=== PATIENT | female | born 1975 | race Caucasian/White ===

== ENCOUNTER 2019-07-01 16:53 | Emergency (ER) | payer OTHER ==
[2019-07-01] MEDS ORDERED: IBUPROFEN 200 MG TAB PO ONE (17:43)
[2019-07-01] MEDS ORDERED: IBUPROFEN 400 MG TAB ONE (17:43)
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
[2019-07-01 19:15] LABS: Urine Blood TRACE (NEG); Urine Glucose NEGATIVE (NEG); Urine Protein NEGATIVE (NEG); Urine Specific Gravity 1.015 (1.005-1.030)
[2019-07-01 20:07] VITALS: BP 123/79; TEMP 97.8; O2SAT 100
== END 2019-07-01 19:13 | disposition home or self-care (01) ==
LOC: ER 16:53
DX: S16.1XXA Strain of muscle, fascia and tendon at neck level, initial encounter (principal); J01.90 Acute sinusitis, unspecified; V49.9XXA Car occupant (driver) (passenger) injured in unspecified traffic accident, initial encounter; K21.9 Gastro-esophageal reflux disease without esophagitis; Z98.82 Breast implant status
CPT/HCPCS: 72125; 81003; 99283

== ENCOUNTER 2019-08-25 09:18 | Emergency (ER) | payer OTHER ==
--- OUTSIDE RECORDS SUMMARY | 2019-08-25 09:20 | XMS REPORT ---
:1975 Author Organization [employer] Care Team Providers Name Role Phone Kitty Nagel Provider Role Unavailable Allergies, Adverse Reactions, Alerts Substance Reaction Event Type Aspirin nausea, dizziness Drug Allergy Problems Problem Type Condition Code Onset Dates Condition Status Assessment Hx of thyroid nodule Z86.39 Active Problem Reactive depression F32.9 Active Problem Irritable bowel syndrome with K58.1 Active constipation Problem GERD without esophagitis K21.9 Active Assessment Reactive depression F32.9 Active Assessment Irritable bowel syndrome with K58.1 Active constipation Problem Hx of thyroid nodule Z86.39 Active Medications Medication Code Code Instructions Start End Status Dosage System Date Date Citalopram ND 18582242560 10 MG Orally Jul 03, Active 1 tablet Hydrobromide Once a day 2018 [place] ND 40410787088 145 MCG Orally Active 1 capsule Once a day at least 30 minutes before the first meal of the day on an empty stomach Famotidine ND 24913419975 40 MG Orally Active 1 tablet Once a day at bedtime Acetaminophen-Codeine ND 39350298026 300-30 MG Oral Active (Schedule #3 III Drug) (Prior Auth: Rx Ref#:[id number]) Amoxicillin-Pot ND 34202744916 875-125 MG Active (Prior Clavulanate Oral Auth: Rx Ref#:[id number]) MethylPREDNISolone NDC 43837193065 4 MG Oral Active (Prior Auth: Rx Ref#:[id number]) Pantoprazole Sodium NDC 82391378900 40 MG Orally Active 1 tablet Once a day Results Name Result Date Reference Range Unit Abnormality Flag THYROID PANEL ----T3 UPTAKE 32 [id number] 22-35 % N ----T4 (THYROXINE), TOTAL 7.4 [id number] 5.1-11.9 mcg/dL N ----FREE T4 INDEX (T7) 2.4 [id number] 1.4-3.8 N Summary Purpose [employer] Submission
--- NOTE | 2019-08-25 11:13 | RAD REPORT ---
EXAM DESCRIPTION: RAD - Chest Pa And Lat (2 Views) - 08/25/2019 10:07 am CLINICAL HISTORY: COUGH Chest pain. COMPARISON: No comparisons FINDINGS: The lungs are clear. The heart is normal in size. No displaced fractures. IMPRESSION: No acute or concerning finding suspected.
--- NOTE | 2019-08-25 11:33 | ER ---
Nurse's Notes [facility] Name: Rand Kraus Age: 44 yrs Sex: Female : 1975 Arrival Date: 08/25/2019 Time: 09:19 Bed 8 Private MD: Diagnosis: Acute upper respiratory infection, unspecified Presentation: 08/25 09:40 Presenting complaint: Patient states: Fever and painful cough x 2-3 days. Son was ss recently diagnosed with the flu. Transition of care: patient was not received from another setting of care. Resp Distress? No respiratory distress is noted at this time. Onset of symptoms was August 22, 2019. Risk Assessment: Do you want to hurt yourself or someone else? Patient reports no desire to harm self or others. Initial Sepsis Screen: Does the patient meet any 2 criteria? No. Patient's initial sepsis screen is negative. Does the patient have a suspected source of infection? No. Patient's initial sepsis screen is negative. Care prior to arrival: None. 09:40 Method Of Arrival: Ambulatory 09:40 Acuity: TONY 4 ss Historical: - Allergies: 09:42 Aspirin; ss - PMHx: 09:42 GERD; mitral valve prolapse; ss - PSHx: 09:42 Hysterectomy; ; ss - Immunization history:: Adult Immunizations up to date. - Coronavirus screen:: The patient has NOT traveled to [place], [place], or [place] in the past 14 days. Proceed with normal triage process as indicated. - Social history:: Smoking status: Patient denies any tobacco usage or history of. - Family history:: not pertinent. - Ebola Screening: : Patient denies exposure to infectious person Patient denies travel to an Ebola-affected area in the 21 days before illness onset. - Hospitalizations: : No recent hospitalization is reported. Screenin:25 Abuse screen: Denies threats or abuse. Denies injuries from another. Nutritional ph screening: No deficits noted. Tuberculosis screening: No symptoms or risk factors identified. Fall Risk None identified. Assessment: 10:23 General: Appears in no apparent distress. comfortable, Behavior is calm, cooperative, ph appropriate for age, Reports chills for fever for 1-2 days. Pain: Complains of pain in chest r/t cough. Neuro: Level of Consciousness is awake, alert, obeys commands, Oriented to person, place, time, situation. Cardiovascular: Capillary refill < 3 seconds in bilateral fingers Patient's skin is warm and dry. Respiratory: Reports cough that is Airway is patent Respiratory effort is even, unlabored, Respiratory pattern is regular, symmetrical, Breath sounds are clear bilaterally. GI: No signs and/or symptoms were reported involving the gastrointestinal system. EENT: Reports nasal congestion nasal discharge. Derm: Skin is intact, is healthy with good turgor, Skin is pink, warm \T\ dry. Musculoskeletal: Circulation, motion, and sensation intact. Range of motion: intact in all extremities. 11:43 Reassessment: Patient appears in no apparent distress at this time. Patient and/or ph family updated on plan of care and expected duration. Pain level reassessed. Patient is alert, oriented x 3, equal unlabored respirations, skin warm/dry/pink. Pt d/c home w/ script for Tamiflu and provided w/ work note. Vital Signs: 09:38 BP 102 / 70; Pulse 64; Resp 15; Temp 97.0(TE); Pulse Ox 99% on R/A; Weight 63.5 kg; ss Height 5 ft. 3 in. (160.02 cm); Pain 0/10; 11:44 BP 99 / 72; Pulse 67; Resp 18; Temp 97.9; Pulse Ox 99% on R/A; ph 09:38 Body Mass Index 24.80 (63.50 kg, 160.02 cm) ED Course: 09:19 Patient arrived in ED. as 09:30 Prince Rodriguez MD is Attending Physician. rn 09:31 Rosalva Red RN is Primary Nurse. ph 09:38 Arm band placed on right wrist. ss 09:41 Triage completed. ss 10:06 XRAY Chest Pa And Lat (2 Views) In Process Unspecified. EDMS 10:25 Patient has correct armband on for positive identification. Bed in low position. Call ph light in reach. Side rails up X 1. Pulse ox on. NIBP on. Door closed. Noise minimized. Warm blanket given. 11:45 No provider procedures requiring assistance completed. Patient did not have IV access ph during this emergency room visit. Administered Medications: No medications were administered Outcome: 11:33 Discharge ordered by . rn 11:45 Discharged to home ambulatory. ph 11:45 Condition: good 11:45 Discharge instructions given to patient, Instructed on discharge instructions, follow up and referral plans. medication usage, Demonstrated understanding of instructions, follow-up care, medications, Prescriptions given X 1. 11:45 Patient left the ED. ph Signatures: Dispatcher [employer] Fany Walalce Roman, MD MD rn Smirch, Shelby, RN RN Rosalva Red RN RN ph
--- NOTE | 2019-08-25 11:34 | EDPHYS ---
Physician Documentation [facility] Name: Rand Kraus Age: 44 yrs Sex: Female : 1975 Arrival Date: 08/25/2019 Time: 09:19 Bed 8 Private MD: ED Physician Prince Rodriguez HPI: 08/25 09:45 This 44 yrs old Female presents to ER via Ambulatory with complaints of rn Fever, Cough, Congestion. 09:45 The patient reports fever, not measured (subjective). Onset: The symptoms/episode rn began/occurred 2 day(s) ago. Modifying factors: The patient has had contact with sick son. Severity of symptoms: At their worst the symptoms were mild in the emergency department the symptoms are unchanged. The patient has not experienced similar symptoms in the past. Reports son recently diagnosed with flu, now she is feeling fever, cough, sore throat, non-productive, no sob. . Historical: - Allergies: 09:42 Aspirin; ss - PMHx: 09:42 GERD; mitral valve prolapse; ss - PSHx: 09:42 Hysterectomy; ; ss - Immunization history:: Adult Immunizations up to date. - Coronavirus screen:: The patient has NOT traveled to [place], [place], or [place] in the past 14 days. Proceed with normal triage process as indicated. - Social history:: Smoking status: Patient denies any tobacco usage or history of. - Family history:: not pertinent. - Ebola Screening: : Patient denies exposure to infectious person Patient denies travel to an Ebola-affected area in the 21 days before illness onset. - Hospitalizations: : No recent hospitalization is reported. ROS: 09:45 Constitutional: + fever Eyes: Negative for injury, pain, redness, and discharge, ENT: + rn sore throat and hoarse voice Neck: Negative for injury, pain, and swelling, Cardiovascular: Negative for chest pain, palpitations, and edema, Respiratory: + cough Abdomen/GI: Negative for abdominal pain, nausea, vomiting, diarrhea, and constipation, MS/Extremity: Negative for injury and deformity, Skin: Negative for injury, rash, and discoloration, Neuro: Negative for headache, numbness, tingling, and seizure. Exam: 09:45 Constitutional: This is a well developed, well nourished patient who is awake, alert, rn and in no acute distress. Ambulatory without assistance Head/Face: Normocephalic, atraumatic. Eyes: Pupils equal round and reactive to light, extra-ocular motions intact. Lids and lashes normal. Conjunctiva and sclera are non-icteric and not injected. Cornea within normal limits. Periorbital areas with no swelling, redness, or edema. ENT: MMM, no swelling, + mild pharyngeal erythema Neck: + non-tender cervical LAD Cardiovascular: Regular rate and rhythm. No pulse deficits. Respiratory: Clear bilateral breath sounds. No increased work of breathing, no retractions or nasal flaring. Neuro: Awake and alert, GCS 15 Vital Signs: 09:38 BP 102 / 70; Pulse 64; Resp 15; Temp 97.0(TE); Pulse Ox 99% on R/A; Weight 63.5 kg; ss Height 5 ft. 3 in. (160.02 cm); Pain 0/10; 11:44 BP 99 / 72; Pulse 67; Resp 18; Temp 97.9; Pulse Ox 99% on R/A; ph 09:38 Body Mass Index 24.80 (63.50 kg, 160.02 cm) ss MDM: 09:30 Patient medically screened. rn 11:32 Differential diagnosis: viral Infection, bacterial infection, URI, pneumonia. Data rn reviewed: vital signs, nurses notes, lab test result(s), radiologic studies, and as a result, I will discharge patient. Test interpretation: by ED physician or midlevel provider: plain radiologic studies, CXR neg for acute abnormality. Counseling: I had a detailed discussion with the patient and/or guardian regarding: the historical points, exam findings, and any diagnostic results supporting the discharge/admit diagnosis, lab results, radiology results, the need for outpatient follow up, to return to the emergency department if symptoms worsen or persist or if there are any questions or concerns that arise at home. Special discussion: I discussed with the patient/guardian in detail that at this point there is no indication for admission to the hospital. It is understood, however, that if the symptoms persist or worsen the patient needs to return immediately for re-evaluation. 08/25 09:45 Order name: Flu; Complete Time: 11:05 rn 08/25 09:45 Order name: Strep; Complete Time: 11: rn 08/25 09:45 Order name: XRAY Chest Pa And Lat (2 Views); Complete Time: 11:16 rn 08/25 10:22 Order name: Throat Culture EDMS Administered Medications: No medications were administered Disposition: 08/25/19 11:33 Discharged to Home. Impression: Acute upper respiratory infection, unspecified. - Condition is Stable. - Discharge Instructions: Upper Respiratory Infection, Adult, Viral Respiratory Infection. - Prescriptions for Tamiflu 75 mg Oral Capsule - take 1 capsule by ORAL route every 12 hours for 5 days; 10 capsule. - Medication Reconciliation Form, Thank You Letter, Antibiotic Education, Prescription Opioid Use, Work release form form. - Follow up: Private Physician; When: As needed; Reason: Recheck today's complaints, Re-evaluation by your physician. - Problem is new. - Symptoms have improved. Signatures: Dispatcher [employer] EDMS Prince Rodriguez MD MD rn Smirch, Shelby, RN RN Rosalva Red RN RN ph Corrections: (The following items were deleted from the chart) 11:45 11:33 08/25/2019 11:33 Discharged to Home. Impression: Acute upper respiratory ph infection, unspecified. Condition is Stable. Forms are Medication Reconciliation Form, Thank You Letter, Antibiotic Education, Prescription Opioid Use. Follow up: Private Physician; When: As needed; Reason: Recheck today's complaints, Re-evaluation by your physician. Problem is new. Symptoms have improved. rn
[2019-08-25 11:51] VITALS: O2SAT 99
[2019-08-25 11:53] VITALS: BP 99/72; TEMP 97.9
== END 2019-08-25 11:45 | disposition home or self-care (01) ==
LOC: ER 09:18
DX: J06.9 Acute upper respiratory infection, unspecified (principal)
CPT/HCPCS: 71046; 87070; 87081; 87804; 99283

== ENCOUNTER 2019-11-28 18:28 | Emergency (ER) | payer OTHER ==
--- OUTSIDE RECORDS SUMMARY | 2019-11-28 18:30 | XMS REPORT ---
:1975 Author Organization [facility] t Address [address] [place] [address] Care Team Providers Name Role Phone Unavailable Unavailable Unavailable Problems Condition Condition Condition Status Onset Resolution Last Treating Co mments Source Name Details Category Date Date Treatment Clinician Date Hx of Hx of Problem Active [facility] thyroid thyroid [facility] - nodule nodule [facility] l [facility]ics Reactive Reactive Problem [facility] depression [facility] - [facility] l [facility] Irritable Irritable Problem Active [facility] bowel bowel [facility] - syndrome syndrome Memori a with with l constipati constipati Ou tpati on on ent Clinics GERD GERD Diagnosis Active [facility] without without [facility] - esophagiti esophagiti Me moria s s l [facility] ent Clinics Thyroid Thyroid Diagnosis Active [facility]ule [facility]ule [facility] - [facility] l [facility]ics Constipati Constipati Diagnosis Active [facility] on, on, [facility] - unspecifie unspecifie Me moria d d l constipati constipati Ou tpati on type on type ent Clinics Screening Screening Diagnosis Active [facility] mammogram, mammogram, Jazz kes - encounter encounter Danny dominga for for l [facility] ent Clinics Encounter Encounter Diagnosis Active [facility] for for [facility] - wellness wellness Memori a examinatio examinatio l n in adult n in adult Ou tpati ent Clinics Mitral Mitral Diagnosis Active [facility] valve valve [facility] - prolapse prolapse Memori a l [facility] ent Clinics Daytime Daytime Diagnosis [facility] somnolence somnolence [facility] - [facility]oria l [facility]ics Shortness Shortness Diagnosis Active [facility] of breath of breath Luke s - Memoria l [facility] ent Clinics Fatigue, Fatigue, Diagnosis Active [facility] unspecifie unspecifie [facility] - d type d type Memoria [facility] ent Clinics Allergies, Adverse Reactions, Alerts Allergy Allergy Status Severity Reaction(s) Onset Inactive Treating Comm ents Source Name Type Date Date Clinician Aspirin Adverse Active nausea, [facility] Reaction dizziness [facility] ent Clinics Medications Ordered Filled Start Stop Current Ordering Indication Dosage Frequency Signature Comments Components Source Medication Medication Date Date Medication? Clinician (SIG) Name Name Citaloprasaloni Citalopram 2018-07 Yes Dwayne [address] [facility] Hydrobromid Hydrobromid 2-18 [facility] - e e 00:00: Memoria 00 [facility] ent Clinics Simona Jarvis Yes Dwayne [address] [facility] at least [facility] - 30 minutes Memoria before the l first meal Outpati of the day ent on an Clinics empty stomach Famotidine Famotidine Yes Dwayne [address] [facility] at bedtime [facility] ent Clinics Pantoprazol Pantoprazol Yes Dwayne [address] [facility] e Sodium e Sodium [facility] ent Clinics Procedures This patient has no known procedures. Encounters Start End Encounter Admission Attending Care Care Encounter Source Date/Time Date/Time Type Type Clinicians Facility Department ID 2019-11-25 2019-11-25 Outpatient Chelo Rivera [id number] [facility] 09:30:00 09:30:00 [employer] [facility] Medicine [facility] Clinics 2019-07-31 2019-07-31 Outpatient Chelo Rivera [id number] [facility] 11:40:00 11:40:00 [facility] Medicine Medicine Outpati ent Clinics 2019-07-03 2019-07-03 Outpatient Chelo Rivera [id number] [facility] 11[facility]00:00 11:00:00 [facility] Medicine Medicine [facility] ent Clinics Results This patient has no known results.
--- OUTSIDE RECORDS SUMMARY | 2019-11-28 18:30 | XMS REPORT ---
:1975 Author Organization [employer] Care Team Providers Name Role Phone Kitty Nagel Provider Role Unavailable Allergies, Adverse Reactions, Alerts Substance Reaction Event Type Aspirin nausea, dizziness Drug Allergy Problems Problem Type Condition Code Onset Dates Condition Statu s Assessment Hx of thyroid nodule Z86.39 Active Problem Reactive depression F32.9 Active Problem Irritable bowel syndrome with K58.1 Active constipation Problem GERD without esophagitis K21.9 Act neil Assessment Reactive depression F32.9 Active Assessment Irritable bowel syndrome with K58.1 Active constipation Problem Hx of thyroid nodule Z86.39 Active Medications Medication Code Code Instructions Start End Status Dosage System Date Date Citalopram ND 62858184035 10 MG Orally Jul 03, Active 1 ta blet Hydrobromide Once a day 2018 Linzess ND 44994815199 145 MCG Orally Active 1 cap zahida Once a day at least 30 minutes before the first meal of the day on an empty stomach Famotidine ND 65111290226 40 MG Orally Active 1 ta blet Once a day at bedtime Acetaminophen-Codeine ND 79877799529 300-30 MG Oral Active (Schedule #3 III Drug) (Prior Auth: Rx Ref#:[id number]) Amoxicillin-Pot ND 19252015522 875-125 MG Active ( Prior Clavulanate Oral Auth: Rx Ref#:[id number]) MethylPREDNISolone NDC 17744209400 4 MG Oral Active (Prior Auth: Rx Ref#:[id number]) Pantoprazole Sodium NDC 37041967221 40 MG Orally Act neil 1 tablet Once a day Results Name Result Date Reference Range Unit Abnormali ty Flag THYROID PANEL ----T3 UPTAKE 32 [id number] 22-35 % N ----T4 (THYROXINE), TOTAL 7.4 [id number] 5.1-11.9 mcg/dL N ----FREE T4 INDEX (T7) 2.4 [id number] 1.4-3.8 N Summary Purpose [employer] Submission
--- OUTSIDE RECORDS SUMMARY | 2019-11-28 18:30 | XMS REPORT ---
:1975 Author Organization [employer] Care Team Providers Name Role Phone Kitty Nagel Provider Role Unavailable Allergies, Adverse Reactions, Alerts Substance Reaction Event Type Aspirin nausea, dizziness Drug Allergy Problems Problem Type Condition Code Onset Dates Condition Statu s Assessment GERD without esophagitis K21.9 Act neil Assessment Thyroid nodule E04.1 Active Problem Reactive depression F32.9 Active Problem Irritable bowel syndrome with K58.1 Active constipation Problem GERD without esophagitis K21.9 Act neil Assessment Reactive depression F32.9 Active Assessment Constipation, unspecified K59.00 Ac tive constipation type Problem Hx of thyroid nodule Z86.39 Active Medications Medication Code Code Instructions Start End Status Dosage System Date Date Citalopram [facility] 32357104812 20 MG Orally Jul 03, Active 1 ta blet Hydrobromide Once a day 2018 Pantoprazole ND 95032308608 40 MG Orally Active 1 tablet Sodium Once a day Linzess [facility] 22117811577 145 MCG Orally Active 1 cap zahida Once a day at least 30 minutes before the first meal of the day on an empty stomach Famotidine ND 40550257410 40 MG Orally Active 1 ta blet Once a day at bedtime Results Name Result Date Reference Range Unit Abnormali ty Flag CBC With Differential/Platelet ----Lymphs 36 [id number] Not Estab. % ----Neutrophils 50 [id number] Not Estab. % ----Baso (Absolute) 0.0 [id number] 0.0-0.2 x10E3/uL ----Hemoglobin 13.1 61503041 11.1-15.9 g/dL ----Eos (Absolute) 0.2 60831540 0.0-0.4 x10E3/uL ----Hematocrit 39.7 06522491 34.0-46.6 % ----Monocytes(Absolute) 0.4 65948376 0.1-0.9 x10E3/uL ----MCV 91 33939474 79-97 fL ----Lymphs (Absolute) 1.8 97452750 0.7-3.1 x10E3/uL ----MCH 30.0 69173354 26.6-33.0 pg ----Neutrophils 2.5 [id number] 1.4-7.0 x10E3/uL (Absolute) ----MCHC 33.0 66270265 31.5-35.7 g/dL ----Immature 0 46674058 Not Estab. % Granulocytes ----Basos 1 [id number] Not Estab. % ----RDW 13.2 80131915 11.7-15.4 % ----Immature Grans (Abs) 0.0 31170582 0.0-0.1 x10E3/uL ----Eos 5 [id number] Not Estab. % ----WBC 4.9 12417787 3.4-10.8 x10E3/uL ----Platelets 287 33512871 150-450 x10E3/uL ----RBC 4.36 40988115 3.77-5.28 x10E6/uL ----Monocytes 8 87938986 Not Estab. % Comp. Metabolic Panel (14) (CMP) ----A/G Ratio 2.0 [id number] 1.2-2.2 ----Globulin, Total 2.2 14657036 1.5-4.5 g/dL ----Alkaline Phosphatase 104 84031784 39-117 IU/L ----Bilirubin, Total 0.6 05476634 0.0-1.2 mg/dL ----Chloride 102 64415047 96-106 mmol/L ----ALT (SGPT) 25 94699987 0-32 IU/L ----Potassium 4.7 05001189 3.5-5.2 mmol/L ----AST (SGOT) 17 83118137 0-40 IU/L ----Sodium 142 12721819 134-144 mmol/L ----BUN/Creatinine Ratio 15 57652126 9-23 ----eGFR If Africn Am 76 [id number] >59 mL/min/1.73 ----Calcium 9.9 66395955 8.7-10.2 mg/dL ----Carbon Dioxide, 23 20190801 20-29 mmol/L Total ----Albumin 4.5 20190801 3.5-5.5 g/dL ----Protein, Total 6.7 20190801 6.0-8.5 g/dL ----Glucose 83 20190801 65-99 mg/dL ----BUN 16 20190801 6-24 mg/dL ----Creatinine 1.04 20190801 0.57-1.00 mg/dL H ----eGFR If NonAfricn Am 66 [id number] >59 mL/min/1.73 TSH ----TSH 1.500 [id number] 0.450-4.500 uIU/mL Summary Purpose [employer]ClinicalWorks Submission
--- OUTSIDE RECORDS SUMMARY | 2019-11-28 18:31 | XMS REPORT ---
:1975 Author Organization [employer] Care Team Providers Name Role Phone Joshua Dwayne Provider Role Unavailable Allergies, Adverse Reactions, Alerts Substance Reaction Event Type Aspirin nausea, dizziness Drug Allergy Problems Problem Type Condition Code Onset Dates Condition Statu s Assessment Screening mammogram, encounter for Z12.31 Active Assessment Encounter for wellness examination Z00.00 Active in adult Assessment Reactive depression F32.9 Active Problem Mitral valve prolapse I34.1 Active Problem GERD without esophagitis K21.9 Act neil Problem Daytime somnolence R40.0 Active Problem Hx of thyroid nodule Z86.39 Active Problem Reactive depression F32.9 Active Problem Irritable bowel syndrome with K58.1 Active constipation Assessment Daytime somnolence R40.0 Active Assessment Mitral valve prolapse I34.1 Active Assessment Thyroid nodule E04.1 Active Assessment Shortness of breath R06.02 Active Assessment GERD without esophagitis K21.9 Act neil Assessment Fatigue, unspecified type R53.83 Ac tive Assessment Constipation, unspecified K59.00 Ac tive constipation type Medications Medication Code Code Instructions Start End Status Dosage System Date Date Pantoprazole ND 16892197348 40 MG Orally Active 1 tablet Sodium Once a day Linzess ND 23255907444 145 MCG Orally Active 1 cap zahida Once a day at least 30 minutes before the first meal of the day on an empty stomach Famotidine ND 19071150443 40 MG Orally Active 1 ta blet Once a day at bedtime Citalopram ND 10050132393 20 MG Orally Active 1 ta blet Hydrobromide Once a day Results No Known Results Summary Purpose [employer]ClinicalWorks Submission
[2019-11-28] MEDS ORDERED: HYDROCODONE/APAP 5/325 MG TAB ONE (19:32)
--- NOTE | 2019-11-28 19:55 | RAD REPORT ---
EXAM DESCRIPTION: RAD -Hand Left 3 View - 11/28/2019 7:49 pm CLINICAL HISTORY: Left hand pain status post injury FINDINGS: No fracture or dislocation is seen.
--- NOTE | 2019-11-28 20:13 | ER ---
Nurse's Notes [facility] Name: Rand Kraus Age: 44 yrs Sex: Female : 1975 Arrival Date: 11/28/2019 Time: 18:32 Bed 7 Private MD: Diagnosis: Pain in left hand-from fall Presentation: 11/27 18:39 Chief complaint: Patient states: [place], tripped and left hand hit large [facility] rock. Pain to left hand since, pain radiates up arm now. No blood thinners. Coronavirus screen: Proceed with normal triage. Patient denies a cough. Patient denies shortness of breath or difficulty breathing. Patient denies measured and/or subjective temperature greater than 100.4F prior to today's visit. Patient denies travel on a cruise ship or to a country the [facility] currently lists as an affected area. Patient denies contact with known and/or suspected case of COVID-19. Ebola Screen: Patient denies travel to an Ebola-affected area in the 21 days before illness onset. Initial Sepsis Screen: Does the patient meet any 2 criteria? No. Patient's initial sepsis screen is negative. Does the patient have a suspected source of infection? No. Patient's initial sepsis screen is negative. Risk Assessment: Do you want to hurt yourself or someone else? Patient reports no desire to harm self or others. Onset of symptoms was November 28, 2019. 18:39 Method Of Arrival: Ambulatory ll1 18:39 Acuity: TONY 4 ll1 Historical: - Allergies: 18:42 Aspirin; ll1 - PMHx: 18:42 GERD; mitral valve prolapse; ll1 - PSHx: 18:42 Hysterectomy; ; ll1 - Immunization history:: Adult Immunizations up to date, Flu vaccine is not up to date. - Social history:: Smoking status: Patient denies any tobacco usage or history of. Patient/guardian denies using alcohol, street drugs, tobacco products. Screenin:15 Abuse screen: Denies threats or abuse. Nutritional screening: No deficits noted. jb4 Tuberculosis screening: No symptoms or risk factors identified. Fall Risk None identified. Assessment: 19:15 General: Appears in no apparent distress. uncomfortable, Behavior is calm, cooperative, jb4 appropriate for age. Pain: Complains of pain in left hand Pain does not radiate. Pain currently is 9 out of 10 on a pain scale. Quality of pain is described as throbbing. Neuro: Level of Consciousness is awake, alert, obeys commands, Oriented to person, place, time, situation. Cardiovascular: Patient's skin is warm and dry. Respiratory: Airway is patent Respiratory effort is even, unlabored, Respiratory pattern is regular, symmetrical. GI: No signs and/or symptoms were reported involving the gastrointestinal system. : No signs and/or symptoms were reported regarding the genitourinary system. EENT: No signs and/or symptoms were reported regarding the EENT system. Derm: Skin is intact, Skin is pink, warm \T\ dry. Musculoskeletal: Circulation, motion, and sensation intact. Range of motion: intact in all extremities. 20:15 Reassessment: Patient appears in no apparent distress at this time. Patient and/or jb4 family updated on plan of care and expected duration. Pain level reassessed. Patient is alert, oriented x 3, equal unlabored respirations, skin warm/dry/pink. Patient states feeling better. 21:03 Reassessment: Patient appears in no apparent distress at this time. Patient and/or jb4 family updated on plan of care and expected duration. Pain level reassessed. Patient is alert, oriented x 3, equal unlabored respirations, skin warm/dry/pink. Pt verbalized understanding of d/c and follow up instructions. Denies questions or concerns. Ambulated out of ED with steady gait. Cardiovascular: Capillary refill < 3 seconds in left fingers. Vital Signs: 18:39 BP 93 / 52; Pulse 61; Resp 16; Temp 98.7; Pulse Ox 100% ; Weight 63.96 kg; Height 5 ft. ll1 3 in. (160.02 cm); Pain 9/10; 18:44 BP 125 / 77; ll1 20:30 BP 119 / 90; Pulse 59; Resp 16; Pulse Ox 99% on R/A; jb4 18:39 Body Mass Index 24.98 (63.96 kg, 160.02 cm) ll1 Trauma Score (Adult): 18:44 Eye Response: spontaneous(1); Verbal Response: oriented(1); Motor Response: obeys ll1 commands(2); Systolic BP: > 89 mm Hg(4); Respiratory Rate: 10 to 29 per min(4); Moses Score: 15; Trauma Score: 12 ED Course: 18:32 Patient arrived in ED. mr 18:41 Triage completed. ll1 18:42 Arm band placed on Patient placed. ll1 19:05 Ignacio Cooley PA is PHCP. cp 19:05 Curtis Nguyen MD is Attending Physician. cp 19:15 Patient has correct armband on for positive identification. Bed in low position. Call jb4 light in reach. Side rails up X 1. Pulse ox on. NIBP on. 19:20 Ryan Fregoso, RN is Primary Nurse. jb4 19:49 XRAY Hand LEFT 3 View In Process Unspecified. EDMS 21:05 No provider procedures requiring assistance completed. Patient did not have IV access jb4 during this emergency room visit. Orthoglass splint: Volar splint applied on left arm Checked by ED provider. Administered Medications: 19:35 Drug: HYDROcodone-acetaminophen 5 mg-325 mg 1 tabs {Note: Rass score 0.} Route: PO; jb4 20:30 Follow up: Response: No adverse reaction; Pain is decreased; RASS: Alert and Calm (0) jb4 Outcome: 20:13 Discharge ordered by MD. cp 21:05 Discharged to home ambulatory. jb4 21:05 Condition: stable 21:05 Discharge instructions given to patient, Instructed on discharge instructions, follow up and referral plans. medication usage, Demonstrated understanding of instructions, follow-up care, medications, Prescriptions given X 1. 21:05 Patient left the ED. jb4 Signatures: Dispatcher [employer] EDHI Trevin Eileen mr Ignacio Cooley PA PA cp Ryan Fregoso RN RN jb4 Desmond Muhammad RN RN ll1 Corrections: (The following items were deleted from the chart) 18:43 18:39 BP 103 / 52; Pulse 61bpm; Resp 16bpm; Pulse Ox 100%; Temp 98.7F; 63.96 kg; Height ll1 5 ft. 3 in.; BMI: 24.9; Pain 9/10; ll1
--- NOTE | 2019-11-28 20:13 | EDPHYS ---
Physician Documentation [facility] Name: Rand Kraus Age: 44 yrs Sex: Female : 1975 Arrival Date: 11/28/2019 Time: 18:32 Bed 7 Private MD: ED Physician Curtis Nguyen HPI: 11/27 19:20 This 44 yrs old Female presents to ER via Ambulatory with complaints of Fall cp Injury. 19:20 Details of fall: The patient fell from an upright position, while running, and struck rock. Onset: The symptoms/episode began/occurred today. Associated injuries: The patient sustained left hand. Historical: - Allergies: 18:42 Aspirin; ll1 - PMHx: 18:42 GERD; mitral valve prolapse; ll1 - PSHx: 18:42 Hysterectomy; ; ll1 - Immunization history:: Adult Immunizations up to date, Flu vaccine is not up to date. - Social history:: Smoking status: Patient denies any tobacco usage or history of. Patient/guardian denies using alcohol, street drugs, tobacco products. ROS: 19:25 MS/extremity: Positive for ecchymosis, pain, swelling, tenderness, of the left hand, cp Negative for decreased range of motion, deformity, paresthesias. 19:25 All other systems are negative. Exam: 19:30 Constitutional: The patient appears in no acute distress, alert, awake, well developed, cp well nourished. 19:30 Musculoskeletal/extremity: Extremities: grossly normal except: noted in the left hand: cp ecchymosis, swelling, tenderness, ROM: limited active range of motion due to pain, in the left hand, Perfusion: the extremity is normally perfused throughout, Sensation intact. 19:30 Skin: intact without open wounds. Vital Signs: 18:39 BP 93 / 52; Pulse 61; Resp 16; Temp 98.7; Pulse Ox 100% ; Weight 63.96 kg; Height 5 ft. ll1 3 in. (160.02 cm); Pain 9/10; 18:44 BP 125 / 77; ll1 20:30 BP 119 / 90; Pulse 59; Resp 16; Pulse Ox 99% on R/A; jb4 18:39 Body Mass Index 24.98 (63.96 kg, 160.02 cm) ll1 Trauma Score (Adult): 18:44 Eye Response: spontaneous(1); Verbal Response: oriented(1); Motor Response: obeys ll1 commands(2); Systolic BP: > 89 mm Hg(4); Respiratory Rate: 10 to 29 per min(4); [place] Score: 15; Trauma Score: 12 Procedures: 21:00 Splinting: Splint applied to left hand using Orthoglass splint, volar hand/wrist cp splint. applied by tech. Examined by me, post splint application: neurovascular intact, Patient tolerated well. MDM: 19:10 Patient medically screened. cp 20:11 Differential diagnosis: contusion, fracture, dislocation. Data reviewed: vital signs, nurses notes, radiologic studies, plain films, and as a result, I will discharge patient. 11/27 19:13 Order name: XRAY Hand LEFT 3 View; Complete Time: 19:58 11/27 19:59 Interpretation: Report reviewed. 11/27 20:00 Order name: Splint - Volar Wrist Splint; Complete Time: 21:01 cp Administered Medications: 19:35 Drug: HYDROcodone-acetaminophen 5 mg-325 mg 1 tabs {Note: Rass score 0.} Route: PO; [facility] 20:30 Follow up: Response: No adverse reaction; Pain is decreased; RASS: Alert and Calm (0) [facility] Disposition: 20:20 Chart complete. 11/28 03:23 Co-signature as Attending Physician, Curtis Nguyen MD. [facility] Disposition: 11/28/19 20:13 Discharged to Home. Impression: Pain in left hand - from fall. - Condition is Stable. - Discharge Instructions: Hand Pain. - Prescriptions for Naprosyn 500 mg Oral Tablet - take 1 tablet by ORAL route 2 times per day As needed take with food; 20 tablet. - Medication Reconciliation Form, Thank You Letter, Antibiotic Education, Prescription Opioid Use form. - Follow up: Private Physician; When: 2 - 3 days; Reason: Worsening of condition. - Problem is new. - Symptoms have improved. Signatures: Dispatcher [employer] EDMS Ignacio Cooley PA PA cp Bryson, James, RN RN jb4 Desmond Muhammad RN RN 1 Curtis Nguyen MD MD 7 Corrections: (The following items were deleted from the chart) 11/27 20:09 20:09 MS/extremity: Positive for ecchymosis, pain, swelling, tenderness, of the left cp hand, Negative for decreased range of motion, deformity, paresthesias, cp 20:10 20:09 All other systems are negative, cp cp 20:10 20:09 MS/extremity: Positive for ecchymosis, pain, swelling, tenderness, of the left cp hand, Negative for decreased range of motion, deformity, paresthesias, cp 21:05 20:13 11/28/2019 20:13 Discharged to Home. Impression: Pain in left hand - from fall. jb4 Condition is Stable. Forms are Medication Reconciliation Form, Thank You Letter, Antibiotic Education, Prescription Opioid Use. Follow up: Private Physician; When: 2 - 3 days; Reason: Worsening of condition. Problem is new. Symptoms have improved. cp
[2019-11-28 21:21] VITALS: TEMP 98.7
[2019-11-28 21:23] VITALS: BP 119/90; O2SAT 99
== END 2019-11-28 21:05 | disposition home or self-care (01) ==
LOC: ER 18:28
DX: M79.642 Pain in left hand (principal); W19.XXXA Unspecified fall, initial encounter; Y93.02 Activity, running; Y92.9 Unspecified place or not applicable; Z88.6 Allergy status to analgesic agent
CPT/HCPCS: 99284

== ENCOUNTER 2020-01-13 09:23 | Emergency (ER) | payer OTHER ==
[2020-01-13] MEDS ORDERED: dexAMETHasone 10 MG/ML VIAL ONE (10:06)
--- NOTE | 2020-01-13 10:11 | ER ---
Nurse's Notes [facility] Name: Rand Kraus Age: 44 yrs Sex: Female : 1975 Arrival Date: 01/13/2020 Time: 09:27 Bed 20 Private MD: Diagnosis: Acute sinusitis Presentation: 01/12 09:37 Chief complaint: Patient states: Sinus pressure that began 6 days ago. Denies cough/ ss fever. Pt states, "I have sinus infection frequently and it feels just like that.". Coronavirus screen: Proceed with normal triage. Patient denies a cough. Patient denies shortness of breath or difficulty breathing. Patient denies measured and/or subjective temperature greater than 100.4F prior to today's visit. Patient denies travel on a cruise ship or to a country the [facility] currently lists as an affected area. Patient denies contact with known and/or suspected case of COVID-19. Ebola Screen: Patient denies exposure to infectious person. Patient denies travel to an Ebola-affected area in the 21 days before illness onset. Initial Sepsis Screen: Does the patient meet any 2 criteria? No. Patient's initial sepsis screen is negative. Does the patient have a suspected source of infection? No. Patient's initial sepsis screen is negative. Risk Assessment: Do you want to hurt yourself or someone else? Patient reports no desire to harm self or others. Onset of symptoms was January 07, 2020. 09:37 Method Of Arrival: Ambulatory ss 09:37 Acuity: TONY 5 ss Historical: - Allergies: 09:39 Aspirin; ss - PMHx: 09:39 GERD; mitral valve prolapse; ss - PSHx: 09:39 Hysterectomy; ; ss - Immunization history:: Adult Immunizations up to date. - Social history:: Smoking status: Patient denies any tobacco usage or history of. Screenin:39 Abuse screen: Denies threats or abuse. Denies injuries from another. Nutritional ss screening: No deficits noted. Tuberculosis screening: Never had TB. Fall Risk None identified. Assessment: 09:39 General: Appears in no apparent distress. comfortable, Behavior is calm, cooperative, ss Reports fatigue for "mild fatigue". Denies fever, feeling ill, chills. Pain: Denies pain. Neuro: Level of Consciousness is awake, alert, obeys commands, Oriented to person, place, time, situation, Gait is steady. Cardiovascular: Capillary refill < 3 seconds is brisk in bilateral fingers. Respiratory: Airway is patent Respiratory effort is even, unlabored, Respiratory pattern is regular, symmetrical, Denies cough, shortness of breath. GI: Patient currently denies abdominal pain, diarrhea, nausea, vomiting. : No signs and/or symptoms were reported regarding the genitourinary system. EENT: Oral mucosa is moist. Reports sinus pressure x 6 days. Derm: Skin is intact, is healthy with good turgor, Skin is dry, Skin is pink, warm \\T\\ dry. normal. Musculoskeletal: Circulation, motion, and sensation intact. Range of motion: intact in all extremities, Swelling absent. Vital Signs: 09:37 BP 122 / 95; Pulse 57; Resp 14; Temp 98.6(TE); Pulse Ox 100% on R/A; Weight 63.05 kg; ss Height 5 ft. 3 in. (160.02 cm); Pain 0/10; 09:37 Body Mass Index 24.62 (63.05 kg, 160.02 cm) ED Course: 09:27 Patient arrived in ED. mr 09:32 [facility] Drake [facility] 09:32 Ignacio Funk MD is Attending Physician. [facility] 09:39 Triage completed. 09:39 Arm band placed on right wrist. 09:39 Patient has correct armband on for positive identification. Bed in low position. Call light in reach. 09:55 Nany Tolentino, RN is Primary Nurse. 10:10 No provider procedures requiring assistance completed. Patient did not have IV access during this emergency room visit. Administered Medications: 10:02 Drug: Decadron 10 mg Route: IM; Site: right ventrogluteal; 10:25 Follow up: Response: No adverse reaction Outcome: 10:11 Discharge ordered by . elizabet 10:15 Discharged to home ambulatory. 10:15 Condition: stable 10:15 Discharge instructions given to patient, Instructed on discharge instructions, follow up and referral plans. Demonstrated understanding of instructions, follow-up care, medications, Prescriptions given X 1. 10:25 Patient left the ED. Signatures: Jarrod Drake PA PA jmm Rivera, Mary Jazz Matute, RN RN ss Rajan, Nany, RN RN
--- NOTE | 2020-01-13 10:12 | EDPHYS ---
Physician Documentation [facility] Name: Rand Kraus Age: 44 yrs Sex: Female : 1975 Arrival Date: 01/13/2020 Time: 09:27 Bed 20 Private MD: ED Physician Ignacio Funk HPI: 01/12 09:30 This 44 yrs old Female presents to ER via Ambulatory with complaints of Sinus jmm Congestion. 09:30 Onset: The symptoms/episode began/occurred gradually, 6 day(s) ago. Modifying factors: jmm The symptoms are alleviated by nothing, the symptoms are aggravated by movement of head. Associated signs and symptoms: Pertinent positives: Pertinent negatives: fever. This is a 44 year old female with a history of MVP that presents to the ED with complaints of sinus pressure, fatigue beginning approx 6 days ago. Denies fever. Patient has had similar episodes in the past when diagnosed with sinusitis. . Historical: - Allergies: 09:39 Aspirin; ss - PMHx: 09:39 GERD; mitral valve prolapse; ss - PSHx: 09:39 Hysterectomy; ; ss - Immunization history:: Adult Immunizations up to date. - Social history:: Smoking status: Patient denies any tobacco usage or history of. ROS: 09:30 Cardiovascular: Negative for chest pain, palpitations, and edema, Respiratory: Negative jmm for shortness of breath, cough, wheezing, and pleuritic chest pain. 09:30 Constitutional: Positive for fatigue. 09:30 ENT: Positive for sinus congestion, sinus pain. 09:30 All other systems are negative. Exam: 09:30 Constitutional: This is a well developed, well nourished patient who is awake, alert, jmm and in no acute distress. 09:30 Eyes: EOMI, no conjunctival erythema appreciated ENT: Moist Mucus Membranes Neck: Trachea midline, Supple Chest/axilla: Normal chest wall appearance and motion. Cardiovascular: Regular rate and rhythm. No edema appreciated Respiratory: Normal respirations, no respiratory distress appreciated Abdomen/GI: Non distended, soft Back: Normal ROM Skin: General appearance color normal MS/ Extremity: Moves all extremities, no obvious deformities appreciated, no edema noted to the lower extremities Neuro: Awake and alert, normal gait Psych: Behavior is normal, Mood is normal, Patient is cooperative and pleasant 09:30 Head/face: Sinus tenderness, that is moderate, is located over the right ethmoid sinus, left ethmoid sinus, right maxillary sinus and left maxillary sinus. Vital Signs: 09:37 BP 122 / 95; Pulse 57; Resp 14; Temp 98.6(TE); Pulse Ox 100% on R/A; Weight 63.05 kg; ss Height 5 ft. 3 in. (160.02 cm); Pain 0/10; 09:37 Body Mass Index 24.62 (63.05 kg, 160.02 cm) ss MDM: 09:32 Patient medically screened. [facility] 10:08 Data reviewed: vital signs, nurses notes. Counseling: I had a detailed discussion with tia the patient and/or guardian regarding: the historical points, exam findings, and any diagnostic results supporting the discharge/admit diagnosis, the need for outpatient follow up, to return to the emergency department if symptoms worsen or persist or if there are any questions or concerns that arise at home. ED course: Patient is alert and non toxic in appearance in the ED. Patient is advised to follow up with pcp for reevaluation. Patient is otherwise given strict return precautions. Patient understood and agrees with the plan fo care. . Administered Medications: 10:02 Drug: Decadron 10 mg Route: IM; Site: right ventrogluteal; 10:25 Follow up: Response: No adverse reaction Disposition: 11:27 Co-signature as Attending Physician, Ignacio Funk MD I agree with the assessment and [facility] plan of care. Disposition: 01/13/20 10:11 Discharged to Home. Impression: Acute sinusitis. - Condition is Stable. - Discharge Instructions: Sinusitis, Adult. - Prescriptions for fluticasone 50 mcg/actuation Nasal spray,suspension - inhale 2 spray by INTRANASAL route once daily; 1 bottle. - Medication Reconciliation Form, Thank You Letter, Antibiotic Education, Prescription Opioid Use form. - Follow up: Private Physician; When: 2 - 3 days; Reason: Recheck today's complaints, Continuance of care, Re-evaluation by your physician. Signatures: Ignacio Funk MD MD cha Mickail, Joel, PA PA jmm Smirch, Shelby, RN RN Nany Tolentino RN RN Corrections: (The following items were deleted from the chart) 10:25 10:11 01/13/2020 10:11 Discharged to Home. Impression: Acute sinusitis. Condition is ah Stable. Forms are Medication Reconciliation Form, Thank You Letter, Antibiotic Education, Prescription Opioid Use. Follow up: Private Physician; When: 2 - 3 days; Reason: Recheck today's complaints, Continuance of care, Re-evaluation by your physician. tia
--- OUTSIDE RECORDS SUMMARY | 2020-01-13 13:32 | XMS REPORT ---
[...] Status Dosage System Date Date Pantoprazole ND 18687990875 40 MG Orally Active 1 tablet Sodium Once a day Linzess ND 48750430468 145 MCG Orally Active 1 cap zahida Once a day at least 30 minutes before the first meal of the day on an empty stomach Famotidine ND 18909861560 40 MG Orally Active 1 ta blet Once a day at bedtime Citalopram ND 76933781722 20 MG Orally Active 1 ta blet Hydrobromide Once a day Results No Known Results Summary Purpose eClinicalWorks Submission
--- OUTSIDE RECORDS SUMMARY | 2020-01-13 13:32 | XMS REPORT ---
:1975 Author Organization [employer] Care Team Providers Name Role Phone Dwayne Lewis Provider Role Unavailable Allergies, Adverse Reactions, Alerts Substance Reaction Event Type Aspirin nausea, dizziness Drug Allergy Problems Problem Type Condition Code Onset Dates Condition Statu s Problem Irritable bowel syndrome with K58.1 Active constipation Problem Hx of thyroid nodule Z86.39 Active Problem Mixed hyperlipidemia E78.2 Active Assessment Right ankle effusion M25.471 Active Problem Other chronic pain G89.29 Active Assessment Pain in right ankle and joints of M25.571 Active right foot Assessment Other chronic pain G89.29 Active Problem Hypercalcemia E83.52 Active Problem Reactive depression F32.9 Active Problem GERD without esophagitis K21.9 Act neil Problem Mitral valve prolapse I34.1 Active Problem Daytime somnolence R40.0 Active Assessment Daytime somnolence R40.0 Active Assessment Shortness of breath R06.02 Active Assessment Hypercalcemia E83.52 Active Assessment Mixed hyperlipidemia E78.2 Active Assessment Thyroid nodule E04.1 Active Assessment GERD without esophagitis K21.9 Act neil Assessment Fatigue, unspecified type R53.83 Ac tive Assessment Constipation, unspecified K59.00 Ac tive constipation type Assessment History of ankle fracture Z87.81 Ac tive Assessment Mitral valve prolapse I34.1 Active Assessment Reactive depression F32.9 Active Medications Medication Code Code Instructions Start End Status Dosage System Date Date Pantoprazole ND 29908594054 40 MG Orally Active 1 tablet Sodium Once a day Famotidine ND 17225027730 40 MG Orally Active 1 ta blet Once a day at bedtime Linzess ND 46488377773 145 MCG Orally Active 1 cap zahida Once a day at least 30 minutes before the first meal of the day on an empty stomach Citalopram ND 67558057652 20 MG Orally Active 1 ta blet Hydrobromide Once a day Results No Known Results Summary Purpose eClinicalWorks Submission
--- OUTSIDE RECORDS SUMMARY | 2020-01-13 13:32 | XMS REPORT | Continuity of Care Document ---
:1975 Author Organization [facility] t Address [address] [place] [address] Care Team Providers Name Role Phone Unavailable Unavailable Unavailable Problems Condition Condition Condition Status Onset Resolution Last Treating Co mments Source Name Details Category Date Date Treatment Clinician Date Hx of Hx of Problem Active [facility] thyroid thyroid [facility] - nodule nodule Memoria l [facility] Reactive Reactive Diagnosis Active [facility] depression depression Jazz kes - Memoria l [facility] Irritable Irritable Problem Active [facility] bowel bowel [facility]ukes - syndrome syndrome Memori a with with l constipati constipati Ou tpati on on ent Clinics GERD GERD Diagnosis Active [facility] without without [facility]ukes - esophagiti esophagiti Me moria s s l [facility] Thyroid Thyroid Diagnosis [facility] nodule nodule [facility] - Memoria l [facility] Constipati Constipati Diagnosis Active [facility] on, on, Lukes - unspecifie unspecifie Me moria d d l constipati constipati Ou tpati on type on type ent Clinics Mitral Mitral Diagnosis Active [facility] valve valve [facility] - prolapse prolapse Memori a l [facility] ent Clinics Daytime Daytime Diagnosis Active [facility] somnolence somnolence Jazz kes - Memoria l [facility] Clinics Shortness Shortness Diagnosis Active [facility] of breath of breath Luke s - Memoria l [facility] ent Clinics Fatigue, Fatigue, Diagnosis Active [facility] unspecifie unspecifie Jazz kes - d type d type Memoria [facility] Mixed Mixed Diagnosis Active [facility] hyperlipid hyperlipid Jazz kes - emia emia Memoria l [facility] Right Right Diagnosis Active [facility] ankle ankle [facility] - effusion effusion Memori a l [facility] ent Clinics Other Other Diagnosis Active [facility] chronic chronic [facility] - pain pain Memoria l [facility] ent Clinics Pain in Pain in Diagnosis Active [facility] right right [facility] - ankle and ankle and Danny dominga joints of joints of l right foot right foot Ou tpati ent Clinics Hypercalce Hypercalce Diagnosis Active [facility] gume gume [facility] History of History of Diagnosis Active [facility] ankle ankle [facility] - fracture fracture Memori a l [facility] Allergies, Adverse Reactions, Alerts Allergy Allergy Status Severity Reaction(s) Onset Inactive Treating Comm ents Source Name Type Date Date Clinician Aspirin Adverse Active nausea, [facility] Reaction dizziness [facility] Medications Ordered Filled Start Stop Current Ordering Indication Dosage Frequency Signature Comments Components Source Medication Medication Date Date Medication? Clinician (SIG) Name Name Citalopram Citalopram 2018-07 Yes Dwayne [address] [facility] Hydrobromid Hydrobromid 2-18 [facility] - e e 00:00: Memoria 00 [facility] ent [facility] Simona Jarvis Yes Dwayne [address] [facility] at least [facility] - 30 minutes Memoria before the l first meal Outpati of the day ent on an Clinics empty stomach Famotidine Famotidine Yes Dwayne [address] [facility] at bed[facility] Pantoprazol Pantoprazol Yes Dwayne [address] [facility] e Sodium e Sodium [facility] ent [facility] Procedures This patient has no known procedures. Encounters Start End Encounter Admission Attending Care Care Encounter Source Date/Time Date/Time Type Type Clinicians Facility Department ID 2019-12-23 2019-12-23 Outpatient Chelo Rivera [id number] [facility] 16:00:00 16:00:00 [employer] nothingGrinder [facility] Medicine [facility] 2019-11-25 2019-11-25 Outpatient Chelo Rivera [id number] [facility] 09:30:00 09:30:00 INF[facility] Medicine Medicine [facility] ent Clinics 2019-07-31 2019-07-31 Outpatient Chelo Rivera [id number] [facility] 11:40:00 11:40:00 [facility] 2019-07-03 2019-07-03 Outpatient Chelo Rivera [id number] [facility] 11:00:00 11:00:00 t [facility] Medicine Outpati ent Clinics Results This patient has no known results.
== END 2020-01-13 10:25 | disposition home or self-care (01) ==
LOC: ER 09:23
DX: J01.90 Acute sinusitis, unspecified (principal); Z88.6 Allergy status to analgesic agent
CPT/HCPCS: 96372; 99283; J1100

== ENCOUNTER 2020-01-17 20:17 | Emergency (ER) | payer OTHER ==
--- OUTSIDE RECORDS SUMMARY | 2020-01-17 20:20 | XMS REPORT ---
[...] Status Dosage System Date Date Pantoprazole ND 63791975106 40 MG Orally Active 1 tablet Sodium Once a day Famotidine ND 72990733431 40 MG Orally Active 1 ta blet Once a day at bedtime Linzess ND 77722275580 145 MCG Orally Active 1 cap zahida Once a day at least 30 minutes before the first meal of the day on an empty stomach Citalopram ND 69899231687 20 MG Orally Active 1 ta blet Hydrobromide Once a day Results No Known Results Summary Purpose eClinicalWorks Submission
--- OUTSIDE RECORDS SUMMARY | 2020-01-17 20:20 | XMS REPORT ---
:1975 Author Organization eClinicalWorks Care Team Providers Name Role Phone Joshua Dwayne Provider Role Unavailable Allergies No Known Allergies Problems Problem Type Condition Code Onset Dates Condition Statu s Problem Irritable bowel syndrome with K58.1 Active constipation Problem Hx of thyroid nodule Z86.39 Active Problem Mixed hyperlipidemia E78.2 Active Problem Other chronic pain G89.29 Active Problem Hypercalcemia E83.52 Active Problem Reactive depression F32.9 Active Problem GERD without esophagitis K21.9 Act neil Problem Mitral valve prolapse I34.1 Active Problem Daytime somnolence R40.0 Active Medications No Known Medications Results No Known Results Summary Purpose eClinicalWorks Submission
--- OUTSIDE RECORDS SUMMARY | 2020-01-17 20:20 | XMS REPORT ---
[...] Status Dosage System Date Date Pantoprazole ND 71293229086 40 MG Orally Active 1 tablet Sodium Once a day Linzess ND 71716483933 145 MCG Orally Active 1 cap zahida Once a day at least 30 minutes before the first meal of the day on an empty stomach Famotidine ND 52149253949 40 MG Orally Active 1 ta blet Once a day at bedtime Citalopram ND 22427510573 20 MG Orally Active 1 ta blet Hydrobromide Once a day Results No Known Results Summary Purpose eClinicalWorks Submission
--- OUTSIDE RECORDS SUMMARY | 2020-01-17 20:20 | XMS REPORT | Continuity of Care Document ---
:1975 Author Organization [facility] t Address [address] [place] [address] Care Team Providers Name Role Phone Unavailable Unavailable Unavailable Problems Condition Condition Condition Status Onset Resolution Last Treating Co mments Source Name Details Category Date Date Treatment Clinician Date Hx of Hx of Problem Active [facility] thyroid thyroid [facility] - nodule nodule [facility] l [facility] Reactive Reactive Problem [facility] depression depression Jazz kes - Memoria l [facility] Irritable Irritable Problem Active [facility] bowel bowel [facility] - syndrome syndrome Memori a with with l constipati constipati Ou tpati on on ent Clinics GERD GERD Problem Active [facility] without without [facility] - esophagiti esophagiti Me moria s s l [facility] Clinics Mitral Mitral Problem Active [facility] valve valve [facility] - prolapse prolapse Memori a l [facility] Clinics Daytime Daytime Problem Active [facility] somnolence somnolence Jazz kes - Memoria l [facility] Mixed Mixed Problem Active [facility] hyperlipid hyperlipid Jazz kes - emia emia Memoria l [facility] Other Other Problem Active [facility] chronic chronic [facility] - pain pain Memoria l [facility] Hypercalce Hypercalce Problem Active [facility] gume gume [facility] - Memoria l [facility] Clinics Allergies, Adverse Reactions, Alerts Allergy Allergy Status Severity Reaction(s) Onset Inactive Treating Comm ents Source Name Type Date Date Clinician Aspirin Adverse Active nausea, [facility] Reaction dizziness [facility] - [facility] ent Clinics Medications Ordered Filled Start Stop Current Ordering Indication Dosage Frequency Signature Comments Components Source Medication Medication Date Date Medication? Clinician (SIG) Name Name Citalopram Citalopram 2019- Yes Dwayne [address] [facility] Hydrobromid Hydrobromid 2-18 [facility] - e e 00:00: Memoria 00 l [facility] ent Clinics Linzeshermelindo Webbzess Yes Dwayne [address] [facility] at least [facility] - 30 minutes Memoria before the l first meal Outpati of the day ent on an Clinics empty stomach Famotidine Famotidine Yes Dwayne [address] [facility] at bedtime [facility] Outpati ent Clinics Pantoprazol Pantoprazol Yes Dwayne [address] [facility] e Sodium e Sodium [facility] Outpati ent Clinics Procedures This patient has no known procedures. Encounters Start End Encounter Admission Attending Care Care Encounter Source Date/Time Date/Time Type Type Clinicians Facility Department ID 2020-01-15 2020-01-15 Outpatient Chelo Whitneyt [id number] [facility] 14:52:00 14:52:00 Georama Bacula [facility] Medicine Medicine Outpati ent Clinics 2019-12-23 2019-12-23 Outpatient Chelo [place] [id number] [facility] 16:00:00 16:00:00 Georama Bacula [facility] Medicine Outpati ent Clinics 2019-11-25 2019-11-25 Outpatient Chelo [place] [id number] [facility] 09:30:00 09:30:00 [facility] Medicine Medicine Outpati ent Clinics 2019-07-31 2019-07-31 Outpatient Chelo [place] [id number] [facility] 11:40:00 11:40:00 [facility] Medicine Outpati ent Clinics 2019-07-03 2019-07-03 Outpatient Chelo Whitneyt [id number] [facility] 11:00:00 11:00:00 [facility] Medicine Outpati ent Clinics Results This patient has no known results.
[2020-01-17 21:00] LABS: Absolute Lymphocytes (CBC) 1.7 K/uL (0.7-4.9); Basophils % 0.5 % (0-1.3); Hematocrit 39.8 % (36.0-45.0); Lymphocytes % 40.2 % (15.3-44.8); MPV 9.3 fL (7.6-11.3); RBC Red Blood Cell Count 4.44 M/uL (3.86-4.86)
[2020-01-17 21:06] LABS: Protime INR 0.94
[2020-01-17 21:20] LABS: ALT/SGPT 40 U/L (12-78); AST/SGOT 17 U/L (15-37); Albumin 3.9 g/dL (3.4-5.0); Alkaline Phosphatase 98 U/L (45-117); BUN Blood Urea Nitrogen 15 mg/dL (7-18); Bicarbonate 28 mmol/L (21-32); Bilirubin Direct 0.1 mg/dL (0-0.2); Bilirubin Total 0.5 mg/dL (0.2-1.0); Glucose Level 141 mg/dL (74-106); NT PRO-BNP 42 pg/mL (<125); Potassium 3.5 mmol/L (3.5-5.1); Protein, Total 7.1 g/dL (6.4-8.2); Sodium Level 142 mmol/L (136-145); Troponin (Emerg Dept Use Only) < 0.02 ng/mL (0.0-0.045)
--- NOTE | 2020-01-17 21:26 | RAD REPORT ---
EXAM DESCRIPTION: CT - Chest For Pe Angio - 01/17/2020 9:15 pm CLINICAL HISTORY: CHEST PAIN COMPARISON: Chest Pa And Lat (2 Views) dated 08/25/2019 Chest exam August 2019 TECHNIQUE: Dynamically enhanced 3 mm thick images of the chest were obtained during administration o f approximately 150mL Isovue 370 IV contrast. Coronal and oblique MIP reconstruction images were gene rated and reviewed. Exam utilizes a protocol to evaluate the pulmonary arterial tree. All CT scans are performed using dose optimization technique as appropriate and may include automated exposure control or mA/KV adjustment according to patient size. FINDINGS: No pulmonary emboli are identified. The aorta as imaged shows no acute or suspicious finding. No pericardial thickening or effusion. No mass consolidation. Minimal airspace opacification posterior gutter on the left is most likely ate lectasis rather than infiltrate or edema. No pleural effusion or pleural thickening. No mediastinal or hilar suspicious masses. No chest wall masses or abnormal axillary lymphadenopathy. No acute bone finding. Bilateral breast implants are in place. IMPRESSION: No pulmonary emboli identified. No other significant or suspicious findings.
[2020-01-17] MEDS ORDERED: PANTOPRAZOLE 40 MG INJ ONE (22:16)
[2020-01-17] MEDS ORDERED: LORAZEPAM 0.5 MG TABLET ONE (22:16)
--- NOTE | 2020-01-17 22:42 | ER ---
Nurse's Notes [facility] Name: Rand Kraus Age: 44 yrs Sex: Female : 1975 Arrival Date: 01/17/2020 Time: 20:23 Bed 6 Private MD: Diagnosis: Pleurisy Presentation: 01/16 20:31 Chief complaint: Patient states: Chest pain and Chest tightness that began this morning sg around lunch time, pt denies cough and shortness of breath at this time, denies N/V/D/Fever. Coronavirus screen: Proceed with normal triage. Ebola Screen: Patient negative for fever greater than or equal to 101.5 degrees Fahrenheit, and additional compatible Ebola Virus Disease symptoms Patient denies exposure to infectious person. Patient denies travel to an Ebola-affected area in the 21 days before illness onset. No symptoms or risks identified at this time. Initial Sepsis Screen: Does the patient meet any 2 criteria? No. Patient's initial sepsis screen is negative. Does the patient have a suspected source of infection? No. Patient's initial sepsis screen is negative. Risk Assessment: Do you want to hurt yourself or someone else? Patient reports no desire to harm self or others. Onset of symptoms was January 17, 2020. Care prior to arrival: None. 20:31 Acuity: TONY 3 sg 20:31 Method Of Arrival: Ambulatory sg MANAGER OF CASE: 20:44 LMP N/A - Hysterectomy rv Historical: - Allergies: 20:33 Aspirin; sg - PMHx: 20:33 GERD; mitral valve prolapse; sg - PSHx: 20:33 Hysterectomy; ; sg - Immunization history:: Adult Immunizations not up to date. - Social history:: Smoking status: Patient denies any tobacco usage or history of. Screenin:46 Abuse screen: Denies threats or abuse. Denies injuries from another. Nutritional rv screening: No deficits noted. Tuberculosis screening: No symptoms or risk factors identified. Fall Risk None identified. Assessment: 20:45 General: Appears comfortable, Behavior is calm, cooperative. Pain: Complains of pain in rv chest Pain does not radiate. Pain currently is 8 out of 10 on a pain scale. Pain began suddenly. Pain: Also complains of light headed. Neuro: Level of Consciousness is awake, alert, obeys commands, Oriented to person, place, time, situation. Cardiovascular: Patient's skin is warm and dry. Rhythm is sinus rhythm. Respiratory: Airway is patent Respiratory effort is even, unlabored, Breath sounds are clear bilaterally. Derm: Skin is intact. 23:05 Reassessment: Patient and/or family updated on plan of care and expected duration. Pain rv level reassessed. Patient is alert, oriented x 3, equal unlabored respirations, skin warm/dry/pink. Patient denies pain at this time. Patient states feeling better. Patient states symptoms have improved. Vital Signs: 20:44 BP 118 / 83; Pulse 83; Resp 20; Temp 98.1; Pulse Ox 99% ; Weight 63.5 kg; Height 5 ft. rv 3 in. (160.02 cm); Pain 8/10; 23:05 BP 107 / 70; Pulse 68; Resp 18; Temp 98; Pulse Ox 99% on R/A; rv 20:44 Body Mass Index 24.80 (63.50 kg, 160.02 cm) rv ED Course: 20:23 Patient arrived in ED. cf2 20:29 Tk Wood, RN is Primary Nurse. rv 20:30 Arm band placed on. sg 20:32 Triage completed. sg 20:46 Patient has correct armband on for positive identification. compliance monitor on. Pulse rv ox on. NIBP on. 20:46 Initial lab(s) drawn, by me, sent to lab. Inserted saline lock: 18 gauge in right rv antecubital area, using aseptic technique. Blood collected. Patient maintains SpO2 saturation greater than 95% on room air. 20:49 [facility]C [facility] snw 20:49 Toi Solorio MD is Attending Physician. snw 21:15 CT Chest For PE Angio In Process Unspecified. EDMS 22:24 XRAY Chest (1 view) In Process Unspecified. EDMS 23:07 No provider procedures requiring assistance completed. IV discontinued, intact, rv bleeding controlled, No redness/swelling at site. Pressure dressing applied. Administered Medications: 22:10 Drug: ProTONIX 40 mg Route: IVP; Site: right antecubital; rr5 23:07 Follow up: Response: No adverse reaction rv 22:11 Drug: Ativan 0.5 mg Route: PO; rr5 23:07 Follow up: Response: No adverse reaction rv Outcome: 22:41 Discharge ordered by MD. sandhu 23:07 Discharged to home ambulatory. rv 23:07 Condition: good 23:07 Discharge instructions given to patient, Instructed on discharge instructions, follow up and referral plans. medication usage, INCENTIVE SPIROMETRY Demonstrated understanding of instructions, follow-up care, medications, INCENTIVE SPIROMETRY Prescriptions given X 2. 23:08 Patient left the ED. rv Signatures: Dispatcher [employer] EDFernando You, RN RN sg Ana Parson, PERFORATOR TYPIST-C PERFORATOR TYPIST-Csnw Tk Wood RN RN rv Ky Coleman RN RN rr5 Buffy Wade cf2
--- NOTE | 2020-01-17 22:42 | EDPHYS ---
Physician Documentation [facility] Name: Rand Kraus Age: 44 yrs Sex: Female : 1975 Arrival Date: 01/17/2020 Time: 20:23 Bed 6 Private MD: ED Physician Toi Solorio HPI: 01/16 22:38 This 44 yrs old Female presents to ER via Ambulatory with complaints of Chest snw Pain. 22:39 The patient or guardian reports chest pain that is located primarily in the epigastric snw area. Onset: gradually. The pain does not radiate. Associated signs and symptoms: Pertinent positives: difficulty with deep breaths, yawns, cough.. The chest pain is described as clutching. Duration: The patient or guardian reports multiple episodes. Modifying factors: The symptoms are alleviated by rest, the symptoms are aggravated by breathing, cough, deep breath. Severity of pain: At its worst the pain was moderate. It is unknown whether or not the patient has had similar symptoms in the past. The patient has been recently seen by a physician: with similar presenting complaints, dx with sinusitis, rx with steroid injection. hx of GERD. 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 - Social history:: Smoking status: Patient denies any tobacco usage or history of. ROS: 21:03 Constitutional: Negative for fever, chills, and weight loss, Eyes: Negative for injury, snw pain, redness, and discharge, ENT: Negative for injury, pain, and discharge, Neck: Negative for injury, pain, and swelling, Cardiovascular: Negative for chest pain, palpitations, and edema. 21:03 Abdomen/GI: Negative for abdominal pain, nausea, vomiting, diarrhea, and constipation, Back: Negative for injury and pain, : Negative for injury, bleeding, discharge, and swelling, MS/Extremity: Negative for injury and deformity, Skin: Negative for injury, rash, and discoloration, Neuro: Negative for headache, weakness, numbness, tingling, and seizure. 21:03 Respiratory: Positive for pleurisy, of the chest, when taking a deep breath, yawning, or sneezing. Exam: 21:03 Constitutional: This is a well developed, well nourished patient who is awake, alert, snw and in no acute distress. Head/Face: Normocephalic, atraumatic. Eyes: Pupils equal round and reactive to light, extra-ocular motions intact. Lids and lashes normal. Conjunctiva and sclera are non-icteric and not injected. Cornea within normal limits. Periorbital areas with no swelling, redness, or edema. ENT: Nares patent. No nasal discharge, no septal abnormalities noted. Tympanic membranes are normal and external auditory canals are clear. Oropharynx with no redness, swelling, or masses, exudates, or evidence of obstruction, uvula midline. Mucous membranes moist. Neck: Trachea midline, no thyromegaly or masses palpated, and no cervical lymphadenopathy. Supple, full range of motion without nuchal rigidity, or vertebral point tenderness. No Meningismus. Chest/axilla: Normal chest wall appearance and motion. Nontender with no deformity. No lesions are appreciated. Cardiovascular: Regular rate and rhythm with a normal S1 and S2. No gallops, murmurs, or rubs. Normal PMI, no JVD. No pulse deficits. Respiratory: Lungs have equal breath sounds bilaterally, clear to auscultation and percussion. No rales, rhonchi or wheezes noted. No increased work of breathing, no retractions or nasal flaring. Abdomen/GI: Soft, non-tender, with normal bowel sounds. No distension or tympany. No guarding or rebound. No evidence of tenderness throughout. Back: No spinal tenderness. No costovertebral tenderness. Full range of motion. Skin: Warm, dry with normal turgor. Normal color with no rashes, no lesions, and no evidence of cellulitis. MS/ Extremity: Pulses equal, no cyanosis. Neurovascular intact. Full, normal range of motion. Neuro: Awake and alert, GCS 15, oriented to person, place, time, and situation. Cranial nerves II-XII grossly intact. Motor strength 5/5 in all extremities. Sensory grossly intact. Cerebellar exam normal. Normal gait. Psych: Awake, alert, with orientation to person, place and time. Behavior, mood, and affect are within normal limits. Vital Signs: 20:44 BP 118 / 83; Pulse 83; Resp 20; Temp 98.1; Pulse Ox 99% ; Weight 63.5 kg; Height 5 ft. rv 3 in. (160.02 cm); Pain 8/10; 23:05 BP 107 / 70; Pulse 68; Resp 18; Temp 98; Pulse Ox 99% on R/A; rv 20:44 Body Mass Index 24.80 (63.50 kg, 160.02 cm) rv MDM: 20:54 Patient medically screened. snw 22:42 The patient was not given aspirin in the Emergency Department. Aspirin not given, snw patient refused. Data reviewed: vital signs, nurses notes. Data interpreted: Pulse oximetry: on room air is 99 %. Interpretation: normal. Counseling: I had a detailed discussion with the patient and/or guardian regarding: the historical points, exam findings, and any diagnostic results supporting the discharge/admit diagnosis, lab results, radiology results, the need for outpatient follow up, to return to the emergency department if symptoms worsen or persist or if there are any questions or concerns that arise at home. Response to treatment: There is no appreciated change of the patient's symptoms at this time. Special discussion: Based on the patient's history, exam, and Dx evaluation, there is no indication for emergent intervention or inpatient Tx. It is understood by the patient/guardian that if the Sx's persist or worsen they need to return immediately for re-evaluation. I have referred the patient to see his PCP for further evaluation of high blood pressure. Based on the history and exam findings, there is no indication for further emergent testing or inpatient evaluation. I discussed with the patient/guardian the need to see the primary care provider for further evaluation of the symptoms. 01/16 20:37 Order name: Basic Metabolic Panel; Complete Time: 21:28 01/16 20:37 Order name: CBC with Diff; Complete Time: 21:08 01/16 20:37 Order name: LFT's; Complete Time: 21:28 01/16 20:37 Order name: Magnesium; Complete Time: 21:28 01/16 20:37 Order name: NT PRO-BNP; Complete Time: 21:28 01/16 20:37 Order name: PT-INR; Complete Time: 21:46 01/16 20:37 Order name: Troponin (emerg Dept Use Only); Complete Time: 21:28 rv 01/16 20:37 Order name: XRAY Chest (1 view) rv 01/16 20:37 Order name: EKG; Complete Time: 20:38 rv 01/16 20:54 Order name: CT Chest For PE Angio; Complete Time: 21:28 snw 01/16 21:29 Order name: CREATININE WHOLE BLOOD; Complete Time: 21:46 EDMS 01/16 21:59 Order name: INCENTIVE SPIROMETRY [facility] 01/16 20:37 Order name: Cardiac monitoring; Complete Time: 20:46 rv 01/16 20:37 Order name: EKG - Nurse/Tech; Complete Time: 20:46 rv 01/16 20:37 Order name: IV Saline Lock; Complete Time: 20:47 rv 01/16 20:37 Order name: Labs collected and sent; Complete Time: 20:47 rv 01/16 20:37 Order name: O2 Per Protocol; Complete Time: 20:47 rv 01/16 20:37 Order name: O2 Sat Monitoring; Complete Time: 20:47 rv Administered Medications: 22:10 Drug: ProTONIX 40 mg Route: IVP; Site: right antecubital; rr5 23:07 Follow up: Response: No adverse reaction rv 22:11 Drug: Ativan 0.5 mg Route: PO; rr5 23:07 Follow up: Response: No adverse reaction rv Disposition: 01/17 06:50 Co-signature as Attending Physician, Toi Solorio MD I agree with the assessment and tw4 plan of care. Disposition: 01/17/20 22:41 Discharged to Home. Impression: Pleurisy. - Condition is Stable. - Discharge Instructions: Pleurisy, Incentive Spirometer. - Prescriptions for Bentyl 20 mg Oral Tablet - take 1 tablet by ORAL route every 6 hours As needed; 20 tablet. Protonix 40 mg Oral Tablet - take 1 tablet by ORAL route once daily; 30 tablet. - Work release form, Medication Reconciliation Form, Thank You Letter, Antibiotic Education, Prescription Opioid Use form. - Follow up: Emergency Department; When: As needed; Reason: Worsening of condition. Follow up: Private Physician; When: 2 - 3 days; Reason: Recheck today's complaints, Continuance of care, Re-evaluation by your physician. Signatures: Dispatcher mokono EDMA Fernando Tyson, RN RN sg Ana Parson, TRANSPLANT CASE MANAGER-C TRANSPLANT CASE MANAGER-Csnw Toi Solorio MD MD tw4 Tk Wood RN RN rv Ky Coleman RN RN rr5 Corrections: (The following items were deleted from the chart) 01/16 23:08 22:41 01/17/2020 22:41 Discharged to Home. Impression: Pleurisy. Condition is Stable. rv Forms are Medication Reconciliation Form, Thank You Letter, Antibiotic Education, Prescription Opioid Use. Follow up: Emergency Department; When: As needed; Reason: Worsening of condition. Follow up: Private Physician; When: 2 - 3 days; Reason: Recheck today's complaints, Continuance of care, Re-evaluation by your physician. snw
[2020-01-17 23:12] VITALS: O2SAT 99
[2020-01-17 23:17] VITALS: BP 107/70; TEMP 98
--- NOTE | 2020-01-18 08:56 | EKG ---
Test Date: 2020-01-17 Test Time: 20:36:10 [employer] Developer: SUSY MEASUREMENT RESULTS: Intervals: Rate: 85 IA: 146 QRSD: 76 QT: 358 QTc: 426 [place]: P: 61 IA: 146 QRS: 43 T: 58 INTERPRETIVE STATEMENTS: Normal sinus rhythm Normal ECG No previous ECG available for comparison Electronically Signed On 01-18-20 08:55:13 CDT by Evangelista Godwin
--- NOTE | 2020-01-18 12:20 | RAD REPORT ---
EXAM DESCRIPTION: RAD - Chest Single View - 01/17/2020 10:24 pm CLINICAL HISTORY: CHEST PAIN Chest pain. COMPARISON: Chest Pa And Lat (2 Views) dated 08/25/2019 FINDINGS: Portable technique limits examination quality. The lungs are grossly clear. The heart is normal in size. No displaced fractures. IMPRESSION: No acute intrathoracic process suspected.
== END 2020-01-17 23:08 | disposition home or self-care (01) ==
LOC: ER 20:17
DX: R09.1 Pleurisy (principal); K21.9 Gastro-esophageal reflux disease without esophagitis; Z88.6 Allergy status to analgesic agent
CPT/HCPCS: 93005; 85025; 80048; 36415; 83735; 85610; 82565; 80076; 84484; 83880; 71275; 71045; 96374; 99285; Q9967; C9113

== ENCOUNTER 2020-04-01 17:22 | Emergency (ER) | payer OTHER ==
--- OUTSIDE RECORDS SUMMARY | 2020-04-01 17:25 | XMS REPORT ---
:1975 Author Organization [employer] Care Team Providers Name Role Phone Brody Lewish Provider Role Unavailable Allergies, Adverse Reactions, Alerts Substance Reaction Event Type Aspirin nausea, dizziness Drug Allergy Problems Problem Type Condition Code Onset Dates Condition Statu s Problem Irritable bowel syndrome with K58.1 Active constipation Problem Hx of thyroid nodule Z86.39 Active Problem Mixed hyperlipidemia E78.2 Active Assessment Hypercalcemia E83.52 Active Problem Other chronic pain G89.29 Active Assessment Right ankle effusion M25.471 Active Assessment Pain in right ankle and joints of M25.571 Active right foot Problem Hypercalcemia E83.52 Active Problem Reactive depression F32.9 Active Problem GERD without esophagitis K21.9 Act neil Problem Mitral valve prolapse I34.1 Active Problem Daytime somnolence R40.0 Active Assessment Shortness of breath R06.02 Active Assessment Fatigue, unspecified type R53.83 Ac tive Assessment Mixed hyperlipidemia E78.2 Active Assessment Daytime somnolence R40.0 Active Assessment GERD without esophagitis K21.9 Act neil Assessment Constipation, unspecified K59.00 Ac tive constipation type Assessment History of ankle fracture Z87.81 Ac tive Assessment Mitral valve prolapse I34.1 Active Assessment Reactive depression F32.9 Active Assessment Other chronic pain G89.29 Active Assessment Thyroid nodule E04.1 Active Assessment Pleurisy R09.1 Active Medications Medication Code Code Instructions Start End Status Dosage System Date Date [facility] 94404127663 145 MCG Orally Active 1 cap zahida Once a day at least 30 minutes before the first meal of the day on an empty stomach Pantoprazole ND 96884508454 40 MG Orally Active 1 tablet Sodium Once a day Famotidine ND 95851927980 40 MG Orally Active 1 ta blet Once a day at bedtime Citalopram ND 47730035143 20 MG Orally Active 1 ta blet Hydrobromide Once a day Results No Known Results Summary Purpose [employer] Submission
--- OUTSIDE RECORDS SUMMARY | 2020-04-01 17:25 | XMS REPORT | Summary of Care ---
:1975 Author Name Ariela Patel M.A. Address Unavailable Unavailable , Care Team Providers Name Role Phone NAVDEEP CUELLAR M.D. 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.27, M19.17 1) Status: Active Medications Name Dates Details Medications not documented Allergies and Adverse Reactions Name Dates Details Allergy history not documented Status: Procedures Procedure Dates Details MR Ankle wo contrast [id number] Date: 24-Jan-2020 Immunization Name Dates Details Immunizations not documented Social History Name Dates Details Tobacco smoking consumption unknown (finding) Vital Signs Date Test Result Details No Known Vitals to report Results Date Description Value Details [id number] [U] XRAY ANKLE MIN 3 VWS RIGHT [id number] XR ANKLE MIN 3 VWS RIGHT Images acquired , not reported on this accession number. Plan of Care Name Dates Details Planned Observations Planned Goals not documented Interventions Provided Labs/Procedures/ImagingMR Ankle wo contrast [id number]; To Be Done: 24 Jan 2020[U] XRAY ANKLE MIN 3 VWS RIGHT [id number]; Done: 24 Jan 2020 Instructions Name Dates Details Instructions not documented Encounters Appointment; NAVDEEP CUELLAR M.D. On: 24-Jan-2020 10: 00 Encounter Diagnosis: Problem not documented
--- OUTSIDE RECORDS SUMMARY | 2020-04-01 17:25 | XMS REPORT | Continuity of Care Document ---
:1975 Author Organization [facility] t Address [address] [place] [address] Care Team Providers Name Role Phone Chandra CASEY, K.H. Attending Clinician POLO Attending Clinician Unavailable Problems Condition Condition Condition Status Onset Resolution Last Treating Co mments Source Name Details Category Date Date Treatment Clinician Date Right Right Problem Active [facility] ankle pain ankle pain it y of [place] [facility] ans Post-traum Post-traum Problem Active U nivers atic atic ity of [place] it[place] of itis of Physici right right ans ankle ankle Hx of Hx of Problem Active [facility] thyroid thyroid [facility] - nodule nodule Memoria l [facility] Reactive Reactive Diagnosis Active [facility] depression depression Jazz kes - Memoria l [facility] Irritable Irritable Problem Active [facility] bowel bowel [facility]ukes - syndrome syndrome Memori a with with l constipati constipati Ou tpati on on ent Clinics GERD GERD Diagnosis Active [facility] without without [facility]ukes - esophagiti esophagiti Me moria s s l [facility] Mitral Mitral Diagnosis Active [facility] valve valve [facility] - prolapse prolapse Memori a l [facility] Daytime Daytime Problem Active [facility] somnolence somnolence Jazz kes - Memoria l [facility] Mixed Mixed Diagnosis Active [facility] hyperlipid hyperlipid Jazz kes - emia emia Memoria l [facility] Other Other Problem Active [facility] chronic chronic [facility] - pain pain Memoria l [facility] Hypercalce Hypercalce Diagnosis Active [facility] gume gume [facility] - Memoria l [facility]ics Right Right Diagnosis Active [facility] ankle ankle [facility] - effusion effusion Memori a l Outpati ent Clinics Pain in Pain in Diagnosis Active [facility] right right [facility] - ankle and ankle and Danny dominga joints of joints of l right foot right foot Ou tpati ent Clinics Fatigue, Fatigue, Diagnosis Active [facility] unspecifie unspecifie Jazz kes - d type d [facility] Constipati Constipati Diagnosis Active [facility] on, on, Lukes - unspecifie unspecifie Me moria d d l constipati constipati Ou tpati on type on type ent Clinics History of History of Diagnosis Active [facility] ankle ankle [facility] - fracture fracture Memori a l [facility] Thyroid Thyroid Diagnosis Active [facility] nodule nodule [facility] Insomnia, Insomnia, Diagnosis Active [facility] unspecifie unspecifie Jazz kes - d type d type [facility] Allergies, Adverse Reactions, Alerts Allergy Allergy Status Severity Reaction(s) Onset Inactive Treating Comm ents Source Name Type Date Date Clinician Aspirin Adverse Active nausea, [facility] Reaction dizziness [facility] Medications Ordered Filled Start Stop Current Ordering Indication Dosage Frequency Signature Comments Components Source Medication Medication Date Date Medication? Clinician (SIG) Name Name Prasad Parham Yes Dwayne [address] 8-10 Lewis immediatel [facility] - 00:00: y before Memoria 00 bedtime [facility] Citalopram Citalopram 2018-07 Yes Dwayne [address] Hydrobromid Hydrobromid 2-18 Lewis [facility] - e e 00:00: Memoria 00 [facility] Linzess Linzess Yes Dwayne [address] [facility] at least [facility] - 30 minutes Memoria before the l first meal Outpati of the day ent on an Clinics empty stomach Famotidine Famotidine Yes Dwayne [address] [facility] at bedtime [facility] Pantoprazol Pantoprazol Yes Dwayne [address] e Sodium e Sodium Lewis [facility] Albuterol Albuterol Yes Dwayne 2 PUFF(S) [facility] Sulfate HFA Sulfate HFA Lewis EVERY 6 [facility]ukes - HOURS Memoria INHALED 30 l DAY(S) [facility] Eszopiclone Eszopiclone Yes Dwayne (Schedule [facility] IV Drug) Lukes - TAKE ONE Memoria (1) l TABLET(S) Outpati BY MOUTH ent ONCE A DAY Clinics AT BEDTIME. Advair Advair Yes Dwayne INHALE 1 [facility] t Diskus Diskus Lewis PUFF TWICE Luke s - A DAY Memoria l Outpati ent Clinics Procedures Procedure Date / Time Performed Performing Clinician Sourc e MR Ankle wo contrast 2020-01-24 00:00:00 [facility] [id number] Physicians Encounters Start End Encounter Admission Attending Care Care Encounter Source Date/Time Date/Time Type Type Clinicians Facility Department ID 2020-02-24 2020-02-24 [facility] [id number] [address] 10:15:00 10:15:00 [facility] Family Medicine l Medicine Outpati ent [facility] 2020-01-29 2020-01-29 [facility] [id number] 09:08:28 10:02:42 Visit Nhi More [id number] [place] [id number] [facility] [id number] community health9 [facility] 2020-01-24 2020-01-24 [facility] CHAYITO CUELLAR Orthopedics [id number] [facility] 10:00:00 10:00:00 tNAVDEEP OLVERA, at [facility] Otis SETHI [facility] Sania Berg Medicine Phys[facility] [place] [facility] [address] 2020-01-23 2020-01-23 [place] [place] [id number] 09:30:00 09:30:00 t [facility] Family Medicine l Medicine Outpati ent Clinics 2020-01-20 2020-01-20 [facility] [id number] 09:10:00 09:10:00 t [facility] Family Medicine l Medicine Outpati ent Clinics 2020-01-15 2020-01-15 [facility] [id number] 14:52:00 14:52:00 t [facility] Family Medicine l Medicine Outpati ent Clinics 2019-12-23 2019-12-23 [facility] [id number] [address] 16:00:00 16:00:00 [place] [employer] [facility] Outpati ent Clinics 2019-11-25 2019-11-25 [facility] [id number] 09:30:00 09:30:00 [place] [employer] [facility] Outpati ent Clinics 2019-07-31 2019-07-31 [facility] [id number] 11:40:00 11:40:00 [facility] Outpati ent Clinics 2019-07-03 2019-07-03 [facility] [id number] 11:00:00 11:00:00 [facility] Outpsychiatric ent Clinics Results Test Description Test Time Test Comments Results Result [facility] e Comments [U] XRAY ANKLE 2020-01-24 Images [facility] 3 VWS RIGHT 10:14:00 acquired, not [place] [id number] reported on Physicians this accession number.
--- OUTSIDE RECORDS SUMMARY | 2020-04-01 17:26 | XMS REPORT | Summary of Care ---
:1975 Author Organization [facility] Address [address] [place] [address] Care Team Providers Name Role Phone Adela Lewis Primary Care Provider Encounter Details Date Type Department Care Team Description 01/29/2020 Laboratory Only [facility] Nhi Artis MD [address] [place] [address] SAM (dyspnea on exertion); Cardiology- [facility] Echo Room 1 - MVP (mitral valve prolapse); [facility] [address] [place] [address] Allergies Active Allergy Reactions Severity Noted Date Comments Aspirin Dizziness, Nausea and/or Vomiting 020 documented as of this encounter (statuses as of 01/29/2020) Medications Medication Sig Dispensed Refills Start Date End Date Status linaCLOtide (LINZESS) Take by mouth 0 Active 72 mcg Cap daily. citalopram (CELEXA) 20 Take 20 mg by 0 Active mg tablet mouth daily. documented as of this encounter (statuses as of 01/29/2020) Active Problems Not on filedocumented as of this encounter (statuses as of 01/29/2020) Social History Tobacco Use Types Packs/Day Years Used Date Never Smoker Smokeless Tobacco: Never Used Sex Assigned at Date Recorded Not on file Job Start Date Occupation Industry Not on file Not on file Not on file Travel History Travel Start Travel End No recent travel history available. COVID-19 Exposure Response Date Recorded In the last month, have you been in contact with No / Unsure 01/29/2020 9:20 AM CDT someone who was confirmed or suspected to have Coronavirus / COVID-19? documented as of this encounter Last Filed Vital Signs Vital Sign Reading Time Taken Comments Blood Pressure 114/71 01/29/2020 1:09 PM CDT Pulse 69 01/29/2020 1:09 PM CDT Temperature - - Respiratory Rate - - Oxygen Saturation - - Inhaled Oxygen Concentration - - Weight 65.3 kg (144 lb) 01/29/2020 1:09 PM CDT Height 160 cm (5' 3") 01/29/2020 1:09 PM CDT Body Mass Index 25.51 01/29/2020 1:09 PM CDT documented in this encounter Plan of Treatment Health Maintenance Due Date Last Done Comments DTaP,Tdap,and Td Vaccines (1 - 1986 Tdap) PAP SMEAR 1996 Breast Cancer Screening 2015 (MAMMOGRAM) INFLUENZA VACCINE (#1) 2020 Depression Screening 01/28/2021 01/29/2020 PNEUMOCOCCAL 0-64 YEARS COMBINED Aged Out No longer eligible based on SERIES patient's age to complete this topic documented as of this encounter Results Not on filedocumented in this encounter Visit Diagnoses Diagnosis SAM (dyspnea on exertion) Other dyspnea and respiratory abnormalit y MVP (mitral valve prolapse) Mitral valve disorders Palpitation Palpitations documented in this encounter Insurance Payer Benefit Plan / Subscriber ID Effective Phone Address T [facility] Group [facility] xxxxxxxxx 2019-Prese [address] Medic aid HEALTH CHOICE - HEALTH CHO[place] nt [id number] 1 MANAGED MEDICAID [place], [place] MEDICAID [phone] documented as of this encounter
--- OUTSIDE RECORDS SUMMARY | 2020-04-01 17:26 | XMS REPORT | Summary of Care ---
:1975 Author Organization [facility] Address [address] [place] [address] Care Team Providers Name Role Phone Lewis Adela Primary Care Provider Reason for Referral (Routine) Status Reason Specialty Diagnoses / Referred By Referred To Procedures Contact Contact New Request Cardiology Diagnoses SAM (dyspnea on exertion) MVP (mitral valve prolapse) Palpitation Artis, Sendil Procedures EXERCISE STRESS TEST Preferred Location: [facility] MD Paulo [address] [address] (Routine) Status Reason Specialty Diagnoses / Procedures Referred By C ontact Referred To Contact Closed Cardiology Diagnoses SAM (dyspnea on exertion) MVP (mitral valve prolapse) Palpitation Artis, Sendil Procedures ECHO ROUTINE W/DOPPLER COLOR Preferred Location: [facility] MD Paulo [address] [address] Phone: Reason for Visit Reason Comments New Patient Establish Care Ekg Done today In Office Encounter Details Date Type Department Care Team Description 01/29/2020 Office Visit [facility] Artis, Sendil SAM (dyspnea on exertion) (Primary Dx); Cardiology- Derik Bates MD MVP (mitral valve prolapse); [address] [address], [address] [place] [address] Allergies Active Allergy Reactions Severity Noted Date Comments Aspirin Dizziness, Nausea and/or Vomiting 020 documented as of this encounter (statuses as of 02/17/2020) Medications Medication Sig Dispensed Refills Start Date End Date Status linaCLOtide (LINZESS) Take by mouth 0 Active 72 mcg Cap daily. citalopram (CELEXA) 20 Take 20 mg by 0 Active mg tablet mouth daily. documented as of this encounter (statuses as of 02/17/2020) Active Problems Not on filedocumented as of this encounter (statuses as of 02/17/2020) Social History Tobacco Use Types Packs/Day Years Used Date Never Smoker Smokeless Tobacco: Never Used Sex Assigned at Date Recorded Not on file COVID-19 Exposure Response Date Recorded In the last month, have you been in contact with No / Unsure 01/29/2020 9:20 AM CDT someone who was confirmed or suspected to have Coronavirus / COVID-19? documented as of this encounter Last Filed Vital Signs Vital Sign Reading Time Taken Comments Blood Pressure 103/73 01/29/2020 9:22 AM CDT Pulse 60 01/29/2020 9:22 AM CDT Temperature - - Respiratory Rate 19 01/29/2020 9:22 AM CDT Oxygen Saturation 100% 01/29/2020 9:22 AM CDT Inhaled Oxygen Concentration - - Weight 65.3 kg (144 lb) 01/29/2020 9:22 AM CDT Height 160 cm (5' 3") 01/29/2020 9:22 AM CDT Body Mass Index 25.51 01/29/2020 9:22 AM CDT documented in this encounter Progress Notes Nhi Artis MD - 01/29/2020 9:00 AM CDT [facility] Cardiology Consult Note Patient: Rand Kraus Date of : 1975 Date of service: 01/29/2020 Primary Care Physician: Dwayne Lewis CHIEF COMPLAINT: Chief Complaint Patient presents with New Patient Establish Care Ekg Done today In Office HISTORY OF PRESENT ILLNESS: Rand Kraus is a 44 year old female presented to the clinic for evaluation for SAM. History from patient. Patient seen and examined in the room. Pertinent cardiac related history reviewed from chart History of MVP diagnosed when she was in 16 yrs of age. Rpt testing around 2012. Reports was given BP meds ? BB for MVP associated with palpitations. Stopped taking it after a year. Recently, noted to have SAM NYHA Class II Palpitations at random. Frequency varies. Happens fews times in a month. Starts and stops quickly. No associated complaints noted. No syncope. Last for fews seconds. She feels like fluttering like sensation. No history of exertional chest pain. No chest pain at rest. No PND or orthopnea. No pedal edema. No exertional palpitations or palpitations at rest. No syncopal attacks. Previous Cardiac Studies: IMAGING - I personally reviewed, pertinent results as below: ECG 01/2020 SR with narrow QRS complex. No sig ST changes. PAST MEDICAL HISTORY MVP No significant family history and surgical history noted from cardiac stand point. SOCIAL HISTORY Social History Socioeconomic History Marital status: Single Spouse name: Not on file Number of children: Not on file Years of education: Not on file Highest education level: Not on file Occupational History Not on file Social Needs Financial resource strain: Not on file Food insecurity: Worry: Not on file Inability: Not on file Transportation needs: Medical: Not on file Non-medical: Not on file Tobacco Use Smoking status: Never Smoker Smokeless tobacco: Never Used Substance and Sexual Activity Alcohol use: Not on file Drug use: Not on file Sexual activity: Not on file Lifestyle Physical activity: Days per week: Not on file Minutes per session: Not on file Stress: Not on file Relationships Social connections: Talks on phone: Not on file Gets together: Not on file Attends rastafari service: Not on file Active member of club or organization: Not on file Attends meetings of clubs or organizations: Not on file Relationship status: Not on file Intimate partner violence: Fear of current or ex partner: Not on file Emotionally abused: Not on file Physically abused: Not on file Forced sexual activity: Not on file Other Topics Concern Not on file Social History Narrative Not on file ALLERGIES Allergies Allergen Reactions Asa [Aspirin] Dizziness and Nausea and/or Vomiting MEDICATIONS Patient's Medications START taking these medications No medications on file CONTINUE taking these medications which have NOT CHANGED CITALOPRAM (CELEXA) 20 MG TABLET Take 20 mg by mouth daily. LINACLOTIDE (LINZESS) 72 MCG CAP Take by mouth daily. START taking Modified Medications as Prescribed No medications on file STOP taking these medications No medications on file REVIEW OF SYSTEMS: Comprehensive 10-system review was conducted and were negative except for what's noted in the HPI. The following systems were reviewed: Constitutional, cardiovascular, respiratory, gastrointestinal, genitourinary, musculoskeletal, neurologic, psychiatric, endocrinological, and hematological. PHYSICAL EXAMINATION: Vitals: 01/29/20 0922 BP: 103/73 BP Location: Left arm Patient Position: Sitting BP CUFF SIZE: Adult Small Pulse: 60 Resp: 19 SpO2: 100% Weight: 65.3 kg (144 lb) Height: 1.6 m (5' 3") General: no apparent distress HEENT: normocephalic atraumatic Neck: supple, no lymphadenopathy, no bruits, no JVD Lungs: clear to auscultation bilaterally. No wheezes or rhonchi. No increased work of breathing. Cardio: Regular rate and rhythm, S1&S2 normal, no murmurs, rubs or gallops Abdomen: soft; non-tender; non-distended; normoactive bowel sounds. : not examined Rectal: not examined Extremities: no clubbing, cyanosis, or edema. Skin: no rashes, no visible lesions. Neuro: no gross focal deficits LABS - Reviewed pertinent labs as below: CBC BMP PT/INR No results found for: WBC No results found for: NA No results found for: PT No results found for: PLT No results found for: K No results found for: PTINR No results found for: HGB No results found for: BUN No results found for: HCT No results found for: CREAT LIPID PROFILE No results found for: GLU No results found for: CHOL TSH No results found for: LDL No results found for: TSH CARDIAC ENZYMES No results found for: HDL No results found for: CK No results found for: TRIG LFTs No results found for: CKMB No results found for: AST No results found for: TROPNI No results found for: ALT No results found for: BNP No results found for: LDL There are no current results on file for these tests and/or test for 1 year. There are no current results on file for these tests and/or test for 1 year. No results found for: LDL No results found for: NTBNP Reports labs done with her PCP are within acceptable limits. ASSESSMENT/PLAN 1. SAM (dyspnea on exertion) 2. MVP (mitral valve prolapse) 3. Palpitation Palpitations/SAM: ECG done was reviewed. In view of symptoms of SAM NYHA Class II/palpiations, recommended echo to assess for structural abnormalities in terms of regional wall abnormalities, VHD, diastolic dysfunction and RV function. Recommend Ex TMT for assess for underlying arrhythmias with stress. Increase free water intake and reduce caffeine intake. History of MVP diagnosed to year ago Will reassess with Echo If work up negative and then still having palpitations/then will plan for event monitor. If all work up negative, then she may be reassured from cardiac stand point. Follow up with [facility] Cardiology based on test results. Orders Placed This Encounter Procedures ECHO ROUTINE W/DOPPLER COLOR Preferred Location: [facility] Requested Prescriptions No prescriptions requested or ordered in this encounter Patient's diease process and its evaluation and treatment were discussed. We discussed each of for cardio vascular-related problems and discussed long-term goals and expectations for the each problem.I reviewed each of the cardiac medications in detail. Given the patient's risk factor profile, and clinical symptoms, we discussed options for further assessment. The diagnostic accuracy and limitation of stress testing for identification of coronary artery disease were reviewed in detail. Specifically, for Ex TMT testing and stressed the need for stresstesting were reviewed. After discussion of the diagnostic accuracy and limitation of stress testing for identification of coronary disease, stress study is being arranged with further management will be based upon findings of the testing. Reviewed the medication with patient in detail recommended to continue taking the current medications without further changes. Recommended goal BP < 130/80 consistently, LDL << 100, HbA1c < 6.5. Recommended, explained and stressed the importance of healthy eating habits and exercises and lifestyle modifications Follow up as planned is predicated on symptoms stability and/or acceptable test results. Patient is urged to call in sooner should problems arise or if there is no improvement in cardiac symptoms. ER warning signs and symptoms explained and patient verbalized understanding. My diagnostic impression and treatment plans were discussed at length with the patient. All side effects as well as drug-drug interactions and risks discussed at length. Ample opportunity was offered and encouraged to ask questions during this visit and patient appreciated the answers given by me andverbzalised statisfcation in the answers given. We reviewed the [place] [employer] recommendations for reduction of overall cardio vascular risk. The importance of monitoring the blood pressure carefully both at home on regular basis along with other physicians appointment was stressed in detail. In addition we discussed target LDL levels for optimal risk reduction. It was advised that to daily physical activity be performed with 30 minutes of sustained exercise for both cardio vascular fitness and improvement for generalized medical health and well-being. Thank you for allowing us to participate in the care of Rand Kraus. If you have any questions or concerns please feel free to call our office at [phone]. I would be happy to be of further assistance for Rand Kraus wellbeing. Iker Artis MD Jewel Gauger, Division of Cardiology [facility] documented in this encounter Plan of Treatment Name Type Priority Associated Diagnoses Order S chedule EKG-12 LEAD ROUTINE HEART STATION Routine SAM (dyspnea on Orde red: 01/29/2020 exertion) MVP (mitral valve prolapse) Palpitation EXERCISE STRESS TEST HEART STATION Routine SAM (dyspnea on 1 O ccurrences Preferred Location: exertion) starting 01/29/2020 [facility] MVP (mitral valve unt il 01/29/2021 prolapse) Palpitation Health Maintenance Due Date Last Done Comments DTaP,Tdap,and Td Vaccines ( - 1994 Tdap) PAP SMEAR 1996 Breast Cancer Screening 2015 (MAMMOGRAM) INFLUENZA VACCINE (#1) 2020 Depression Screening 01/28/2021 01/29/2020 PNEUMOCOCCAL 0-64 YEARS COMBINED Aged Out No longer eligible based on SERIES patient's age to complete this topic documented as of this encounter Procedures Procedure Name Priority Date/Time Associated Diagnosis Comme nts EKG-12 LEAD Routine 01/29/2020 9:27 AM CDT documented in this encounter Results ECHO ROUTINE W/DOPPLER COLOR Preferred Location: [facility] (01/29/2020 2:05 PM CDT) Specimen Performing Organization Address City/State/Zipcode Phone Number ECHO documented in this encounter Visit Diagnoses Diagnosis SAM (dyspnea on exertion) - Primary Other dyspnea and respiratory abnormalit y MVP (mitral valve prolapse) Mitral valve disorders Palpitation Palpitations documented in this encounter Insurance Payer Benefit Plan / Subscriber ID Effective Phone Address T e Group [facility] [id number] 2019-Ta [place]AR Medic aid HEALTH CHOICE - HEALTH CHOICE nt [id number] 1 MANAGED MEDICAID [place], [place] MEDICAID [phone] documented as of this encounter
--- OUTSIDE RECORDS SUMMARY | 2020-04-01 17:26 | XMS REPORT | Summary of Care ---
:1975 Author Organization [facility] Address [address] [place] [address] Care Team Providers Name Role Phone Lewis Adela Primary Care Provider Reason for Referral (Routine) Status Reason Specialty Diagnoses / Referred By Referred To Procedures Contact Contact New Request Cardiology Diagnoses SAM (dyspnea on exertion) MVP (mitral valve prolapse) Palpitation Artis, Sendil Procedures EXERCISE STRESS TEST Preferred Location: [facility] MD Paulo [address] [phone] (Routine) Status Reason Specialty Diagnoses / Procedures Referred By C ontact Referred To Contact Closed Cardiology Diagnoses SAM (dyspnea on exertion) MVP (mitral valve prolapse) Palpitation Artis, Sendil Procedures ECHO ROUTINE W/DOPPLER COLOR Preferred Location: [facility] MD Paulo [address] [address] Phone: Reason for Visit Reason Comments New Patient Establish Care Ekg Done today In Office Encounter Details Date Type Department Care Team Description 01/29/2020 Office Visit [facility] Artis, Sendil SAM (dyspnea on exertion) (Primary Dx); Cardiology- Derik Bates MD MVP (mitral valve prolapse); [address] [facility] [address]ul, [address] [place] [phone] Allergies Active Allergy Reactions [...] Artis MD - 01/29/2020 9:00 AM CDT [facility] Cardiology Consult Note Patient: Rand Kraus Date [...] file Gets together: Not on file Attends cheondoism service: Not on file Active member of [...] from cardiac stand point. Follow up with [facility] Cardiology based on test results. Orders Placed This Encounter Procedures ECHO ROUTINE W/DOPPLER COLOR Preferred Location: [facility] Requested Prescriptions No prescriptions requested or [...] in the answers given. We reviewed the [place] recommendations for reduction of overall [...] feel free to call our office at [phone]. I would be happy to be of further assistance for Rand Kraus wellbeing. Iker Artis MD Train Examiner, Division of Cardiology [facility] documented in this encounter Plan of Treatment Name Type Priority Associated Diagnoses Order S chedule EKG-12 LEAD ROUTINE HEART STATION Routine SAM (dyspnea on Orde red: 01/29/2020 exertion) MVP (mitral valve prolapse) Palpitation EXERCISE STRESS TEST HEART STATION Routine SAM (dyspnea on 1 O ccurrences Preferred Location: exertion) starting 01/29/2020 [facility] MVP (mitral valve unt il 01/29/2021 [...] Results ECHO ROUTINE W/DOPPLER COLOR Preferred Location: [facility] (01/29/2020 2:05 PM CDT) Specimen Performing Organization Address City/State/Zipcode Phone Number ECHO documented in this encounter Visit Diagnoses Diagnosis SAM (dyspnea on exertion) - Primary Other dyspnea and respiratory abnormalit y MVP (mitral valve prolapse) Mitral valve disorders Palpitation Palpitations documented in this encounter Insurance Payer Benefit Plan / Subscriber ID Effective Phone Address T e Group [facility] [id number] 2019-Ta THAKKAR Medic aid HEALTH CHOICE - [place] [id number] 1 MANAGED MEDICAID [place], [place]ICA[place] [phone] documented as of this encounter
--- OUTSIDE RECORDS SUMMARY | 2020-04-01 17:26 | XMS REPORT | Summary of Care ---
:1975 Author Organization [facility] Address [address] [place] [address] Care Team Providers Name Role Phone Adela Lewis Primary Care Provider Reason for Visit Reason Comments Results Encounter Details Date Type Department Care Team Description 02/11/2020 Telephone [facility] Cardiology- Nhi Artis MD Results [place] [address] [facility] [address] [place] [address] [place] [address] [phone] Allergies Active Allergy Reactions Severity Noted Date Comments Aspirin Dizziness, Nausea and/or Vomiting 020 documented as of this encounter (statuses as of 02/11/2020) Medications Medication Sig Dispensed Refills Start Date End Date Status linaCLOtide (LINZESS) Take by mouth 0 Active 72 mcg Cap daily. citalopram (CELEXA) 20 Take 20 mg by 0 Active mg tablet mouth daily. documented as of this encounter (statuses as of 02/11/2020) Active Problems Not on filedocumented as of this encounter (statuses as of 02/11/2020) Social History Tobacco Use Types Packs/Day Years [...] of this encounter Last Filed Vital Signs Not on filedocumented in this encounter Plan of Treatment Health [...] Results Not on filedocumented in this encounter Insurance Payer Benefit Plan / Subscriber ID Effective Phone Address T e Group [facility] xxxxxxxxx 2019-Prese [address] Medic aid HEALTH CHOICE - HEALTH CHOICE nt [id number] 1 MANAGED MEDICAID [place], [place] [phone] documented as of this encounter
--- OUTSIDE RECORDS SUMMARY | 2020-04-01 17:26 | XMS REPORT ---
:1975 Author Organization eClinicalWorks Care Team Providers Name Role Phone Joshua [facility] Provider Role Unavailable Allergies, Adverse Reactions, Alerts Substance Reaction Event Type Aspirin nausea, dizziness Drug Allergy Problems Problem Type Condition Code Onset Dates Condition Statu s Problem Hx of thyroid nodule Z86.39 Active Problem GERD without esophagitis K21.9 Act neil Problem Irritable bowel syndrome with K58.1 Active constipation Problem Hypercalcemia E83.52 Active Assessment Right ankle effusion M25.471 Active Problem Mixed hyperlipidemia E78.2 Active Assessment Pain in right ankle and joints of M25.571 Active right foot Assessment Other chronic pain G89.29 Active Problem Insomnia, unspecified type G47.00 A ctive Problem Daytime somnolence R40.0 Active Problem Reactive depression F32.9 Active Problem Other chronic pain G89.29 Active Problem Mitral valve prolapse I34.1 Active Assessment Fatigue, unspecified type R53.83 Ac tive Assessment Mitral valve prolapse I34.1 Active Assessment Hypercalcemia E83.52 Active Assessment Mixed hyperlipidemia E78.2 Active Assessment Insomnia, unspecified type G47.00 A ctive Assessment Constipation, unspecified K59.00 Ac tive constipation type Assessment Thyroid nodule E04.1 Active Assessment Reactive depression F32.9 Active Assessment History of ankle fracture Z87.81 Ac tive Assessment GERD without esophagitis K21.9 Act neil Medications Medication Code Code Instructions Start End Status Dosage System Date Date Albuterol [facility][NOTE 3] 72041550781 108 (90 Base) Active 2 PU FF(S) Sulfate HFA MCG/ACT EVERY 6 HOUR S Inhalation INHALED 30 DAY(S) Linzess ND 05736864746 145 MCG Orally Active 1 cap zahida at Once a day least 30 minutes before the first meal of the day on an empty stomach Famotidine ND 81047155923 40 MG Orally Active 1 ta blet at Once a day bedtime Lunesta ND 41613910868 2 MG Orally Feb 23, Active 1 tablet Once a day 2019 immediately before bedtime Eszopiclone [facility][NOTE 3] 73231872096 2 MG Oral Active (Sched ule IV Drug) TAKE ONE (1) TABLET(S) BY MOUTH ONCE A DAY AT BEDTIME. Advair Diskus [facility][NOTE 3] 00294041426 250-50 MCG/DOSE Active INHALE 1 PUFF Inhalation TWICE A DAY Citalopram [facility][NOTE 3] 68242164365 20 MG Orally Active 1 ta blet Hydrobromide Once a day Pantoprazole [facility][NOTE 3] 69136373586 40 MG Orally Active 1 tablet Sodium Once a day Results No Known Results Summary Purpose eClinicalWorks Submission
[2020-04-01] MEDS ORDERED: KETOROLAC 30 MG/ML INJ ONE (20:02)
--- NOTE | 2020-04-01 20:07 | RAD REPORT ---
EXAM DESCRIPTION: RAD - Hand Right 3 View - 04/01/2020 8:00 pm CLINICAL HISTORY: Right hand pain status post injury FINDINGS: No fracture or dislocation is seen.
--- NOTE | 2020-04-01 20:14 | EDPHYS ---
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 - Social history:: Smoking status: Patient denies any tobacco usage or history of. Patient/guardian denies using street drugs. Vital Signs: 17:30 BP 111 / 88; Pulse 85; Resp 16; Temp 98.7; Pulse Ox 100% ; Pain 8/10; ll1 19:15 BP 128 / 99; Pulse 59; Resp 16; Pulse Ox 100% on R/A; jb4 20:25 BP 128 / 81; Pulse 80; Resp 16; Pulse Ox 98% on R/A; jb4 MDM: 17:37 Patient medically screened. snw 20:28 Data reviewed: vital signs, nurses notes. Data interpreted: Pulse oximetry: on room air snw is 98 %. Interpretation: normal. Counseling: I had a detailed discussion with the patient and/or guardian regarding: the historical points, exam findings, and any diagnostic results supporting the discharge/admit diagnosis, radiology results, the need for outpatient follow up, to return to the emergency department if symptoms worsen or persist or if there are any questions or concerns that arise at home. Special discussion: Based on the history and exam findings, there is no indication for further emergent testing or inpatient evaluation. I discussed with the patient/guardian the need to see the orthopedic surgeon for further evaluation of the symptoms. I discussed with the patient/guardian the need to see the primary care provider for further evaluation of the symptoms. 04/01 19:06 Order name: XRAY Hand RIGHT 3 View; Complete Time: 20:10 jl7 04/01 20:11 Order name: Finger Splint; Complete Time: 20:21 snw Administered Medications: 19:55 Drug: TORadol 60 mg Route: IM; Site: right gluteus; jb4 20:25 Follow up: Response: No adverse reaction; Marked relief of symptoms; Pain is decreased jb4 Disposition: 04/01/20 20:14 Discharged to Home. Impression: Nondisplaced fracture of medial phalanx of right little finger. - Condition is Stable. - Discharge Instructions: Finger Fracture, RICE for Routine Care of Injuries. - Prescriptions for Tylenol- Codeine #3 300-30 mg Oral Tablet - take 2 tablets by ORAL route every 6 hours As needed; 14 tablet. - Medication Reconciliation Form, Thank You Letter, Antibiotic Education, Prescription Opioid Use form. - Follow up: Emergency Department; When: As needed; Reason: Worsening of condition. Follow up: Private Physician; When: 2 - 3 days; Reason: Recheck today's complaints, Continuance of care, Re-evaluation by your physician. Addendum: 04/06/2020 07:03 Co-signature as Attending Physician, Prince Rodriguez MD. r n Signatures: Dispatcher [employer] EDMS Ana Corral, COUNTER MOLDER-C COUNTER MOLDER-Csnw Prince Rodriguez MD MD rn Bryson, James, RN RN jb4 Desmond Muhammad RN RN ll1 Corrections: (The following items were deleted from the chart) 04/01 20:29 20:14 04/01/2020 20:14 Discharged to Home. Impression: Nondisplaced fracture of medial jb4 phalanx of right little finger. Condition is Stable. Forms are Medication Reconciliation Form, Thank You Letter, Antibiotic Education, Prescription Opioid Use. Follow up: Emergency Department; When: As needed; Reason: Worsening of condition. Follow up: Private Physician; When: 2 - 3 days; Reason: Recheck today's complaints, Continuance of care, Re-evaluation by your physician. snw
--- NOTE | 2020-04-01 20:14 | ER ---
Nurse's Notes [facility] Name: Rand Kraus Age: 44 yrs Sex: Female : 1975 Arrival Date: 04/01/2020 Time: 17:25 Bed 18 Private MD: Diagnosis: Nondisplaced fracture of medial phalanx of right little finger Presentation: 04/01 17:30 Chief complaint: Patient states: Right hand 5th digit crush injury today at 1300. ll1 Coronavirus screen: Client denies travel out of the [place] in the last 14 days. At this time, the client does not indicate any symptoms associated with coronavirus-19. Ebola Screen: Patient denies travel to an Ebola-affected area in the 21 days before illness onset. Initial Sepsis Screen: Does the patient meet any 2 criteria? No. Patient's initial sepsis screen is negative. Risk Assessment: Do you want to hurt yourself or someone else? Patient reports no desire to harm self or others. Onset of symptoms was April 01, 2020. 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 - Social history:: Smoking status: Patient denies any tobacco usage or history of. Patient/guardian denies using street drugs. Screenin:50 Abuse screen: Denies threats or abuse. Denies injuries from another. Nutritional jl7 screening: No deficits noted. Tuberculosis screening: No symptoms or risk factors identified. Fall Risk None identified. Assessment: 17:50 General: Appears in no apparent distress. uncomfortable, Behavior is calm, cooperative, jl7 appropriate for age. Pain: Complains of pain in right little finger Pain currently is 8 out of 10 on a pain scale. Neuro: Level of Consciousness is awake, alert, obeys commands, Oriented to person, place, time, situation. Cardiovascular: Patient's skin is warm and dry. Respiratory: Airway is patent Respiratory effort is even, unlabored, Respiratory pattern is regular, symmetrical. Derm: Skin is pink, warm \T\ dry. Musculoskeletal: Range of motion: intact in all extremities, Swelling present in right little finger. 19:08 Reassessment: Patient appears in no apparent distress at this time. No changes from jl7 previously documented assessment. Patient and/or family updated on plan of care and expected duration. Pain level reassessed. Patient is alert, oriented x 3, equal unlabored respirations, skin warm/dry/pink. 19:15 Reassessment: Patient appears in no apparent distress at this time. No changes from jb4 previously documented assessment. Patient and/or family updated on plan of care and expected duration. Pain level reassessed. 20:25 Reassessment: Patient appears in no apparent distress at this time. Patient and/or jb4 family updated on plan of care and expected duration. Pain level reassessed. Patient is alert, oriented x 3, equal unlabored respirations, skin warm/dry/pink. Pt verbalized understanding of d/c and follow up instructions. Denies questions or concerns. Ambulated out of ED with steady gait. Vital Signs: 17:30 BP 111 / 88; Pulse 85; Resp 16; Temp 98.7; Pulse Ox 100% ; Pain 8/10; ll1 19:15 BP 128 / 99; Pulse 59; Resp 16; Pulse Ox 100% on R/A; jb4 20:25 BP 128 / 81; Pulse 80; Resp 16; Pulse Ox 98% on R/A; jb4 ED Course: 17:25 Patient arrived in ED. mr 17:31 Triage completed. ll1 17:32 Arm band placed on. ll1 17:36 Ana Corral FNP-C is PHCP. snw 17:36 Prince Rodriguez MD is Attending Physician. snw 17:38 Paul Murray RN is Primary Nurse. jl7 17:50 Patient has correct armband on for positive identification. Bed in low position. Call jl7 light in reach. Side rails up X 1. 19:06 Report given to ÁNGEL Paris. jl7 20:00 XRAY Hand RIGHT 3 View In Process Unspecified. EDMS 20:25 No provider procedures requiring assistance completed. Patient did not have IV access jb4 during this emergency room visit. Administered Medications: 19:55 Drug: TORadol 60 mg Route: IM; Site: right gluteus; jb4 20:25 Follow up: Response: No adverse reaction; Marked relief of symptoms; Pain is decreased jb4 Outcome: 20:14 Discharge ordered by . edson 20:25 Discharged to home ambulatory. jb4 20:25 Condition: stable 20:25 Discharge instructions given to patient, Instructed on discharge instructions, follow up and referral plans. medication usage, Demonstrated understanding of instructions, follow-up care, medications, Prescriptions given X 1. 20:29 Patient left the ED. jb4 Signatures: Dispatcher [employer] EDMS Ana Corral, NURSING SERVICE ADMINISTRATOR-C NURSING SERVICE ADMINISTRATOR-Eileen Nolan mr DelongRyan lim, RN RN jb4 Paul Murray RN RN jl7 Desmond Muhammad RN RN ll1
[2020-04-01 20:57] VITALS: TEMP 98.7
[2020-04-01 20:59] VITALS: BP 128/81; O2SAT 98
== END 2020-04-01 20:29 | disposition home or self-care (01) ==
LOC: ER 17:22
PROC: 2W3JX1Z Immobilization of Right Finger using Splint (ICD-10-PCS; principal; 2020-04-01)
DX: S62.656A Nondisplaced fracture of middle phalanx of right little finger, initial encounter for closed fracture (principal); X58.XXXA Exposure to other specified factors, initial encounter; Z88.6 Allergy status to analgesic agent
CPT/HCPCS: 96372; 99283

== ENCOUNTER 2020-05-11 14:17 | Emergency (ER) | payer OTHER ==
--- OUTSIDE RECORDS SUMMARY | 2020-05-11 14:25 | XMS REPORT ---
:1975 Author Organization eClinicalWorks Care Team Providers Name Role Phone Joshua [facility] Provider Role Unavailable Allergies, Adverse Reactions, Alerts [...] End Status Dosage System Date Date Albuterol [facility] 48659020001 108 (90 Base) Active 2 PU FF(S) Sulfate HFA MCG/ACT EVERY 6 HOUR S Inhalation INHALED 30 DAY(S) Linzess ND 09411601202 145 MCG Orally Active 1 cap zahida at Once a day least 30 minutes before the first meal of the day on an empty stomach Famotidine ND 34575745283 40 MG Orally Active 1 ta blet at Once a day bedtime Lunesta ND 89537035056 2 MG Orally Feb 23, Active 1 tablet Once a day 2019 immediately before bedtime Eszopiclone [facility] 86750840520 2 MG Oral Active (Sched ule IV Drug) TAKE ONE (1) TABLET(S) BY MOUTH ONCE A DAY AT BEDTIME. Advair Diskus [facility] 40454177147 250-50 MCG/DOSE Active INHALE 1 PUFF Inhalation TWICE A DAY Citalopram [facility] 25454576220 20 MG Orally Active 1 ta blet Hydrobromide Once a day Pantoprazole [facility] 44416716780 40 MG Orally Active 1 tablet Sodium Once a day Results No Known Results Summary Purpose eClinicalWorks Submission
--- OUTSIDE RECORDS SUMMARY | 2020-05-11 14:25 | XMS REPORT | Continuity of Care Document ---
:1975 Author Organization [facility] t Address [address] [place] [address] Care Team Providers Name Role Phone Chandra [...] thyroid [facility] - nodule nodule Memoria l [facility] ent Clinics Reactive Reactive Diagnosis Active [facility] depression depression Jazz kes - Memoria l [facility] ent Clinics Irritable Irritable Problem Active [facility] bowel bowel Lukes - syndrome syndrome Memori a with with l constipati constipati Ou tpati on on ent Clinics GERD GERD Diagnosis Active [facility] without without Lukes - esophagiti esophagiti Me moria s s l [facility] ent Clinics Mitral Mitral Diagnosis Active [facility] valve valve [facility]ukes - prolapse prolapse Memori a l [facility] ent Clinics Daytime Daytime Problem Active [facility] somnolence somnolence Jazz kes - Memoria l [facility] ent Clinics Mixed Mixed Diagnosis Active [facility] hyperlipid hyperlipid Jazz kes - emia emia Memoria l [facility] ent Clinics Other Other Problem Active [facility] chronic chronic [facility]ukes - pain pain Memoria l [facility] ent Clinics Hypercalce Hypercalce Diagnosis Active [facility] gume gume [facility]ukes - Memoria l [facility] ent Clinics Right Right Diagnosis Active [facility] [...] Jazz kes - d type d [facility] Constipati Constipati Diagnosis Active [facility] on, on, Lukes - unspecifie unspecifie Me moria d d l constipati constipati Ou tpati on type on type ent Clinics History of History of Diagnosis Active [facility] ankle ankle [facility] - fracture fracture Memori a l [facility] Thyroid Thyroid Diagnosis Active [facility] nodule nodule [facility] Insomnia, Insomnia, Diagnosis Active C [facility] unspecifie unspecifie Jazz kes - d type d type [facility] Allergies, Adverse Reactions, Alerts Allergy Allergy Status Severity Reaction(s) Onset Inactive Treating Comm ents Source Name Type Date Date Clinician Aspirin Adverse Active nausea, [facility] Reaction dizziness [facility] Medications Ordered Filled Start Stop Current Ordering Indication Dosage Frequency Signature Comments Components Source Medication Medication Date Date Medication? Clinician (SIG) Name Name Prasad Parham Yes Dwayne [address] 8-10 Lewis immediatel Lukes - 00:00: y before Memoria 00 bedtime [facility] ent [facility] Citalopram Citalopram 2018-07 Yes Dwayne [address] [facility] Hydrobromid Hydrobromid 2-18 Lewis Lukes - e e 00:00: Memoria 00 [facility] ent [facility] Linzess Linzess Yes Dwayne [address] [facility] at least [facility]ukes - 30 minutes Memoria before the l first meal Outpati of the day ent on an Clinics empty stomach Famotidine Famotidine Yes Dwayne [address] [facility] at [facility] ent [facility] Pantoprazol Pantoprazol Yes Dwayne [address] e Sodium e Sodium [facility] ent [facility] Albuterol Albuterol Yes Dwayne 2 PUFF(S) [facility] Sulfate HFA Sulfate HFA Lewis EVERY 6 Lukes - HOURS Memoria INHALED 30 l DAY(S) [facility] ent [facility] Eszopiclone Eszopiclone Yes Dwayne (Schedule [facility] [...] e MR Ankle wo contrast 2020-01-24 00:00:00 [facility] [id number] Physicians Encounters Start End Encounter Admission Attending Care Care Encounter Source Date/Time Date/Time Type Type Clinicians Facility Department ID 2020-02-24 2020-02-24 [facility] [id number] 10:15:00 10:15:00 [employer] [facility] Family Medicine l Medicine Outpati ent [facility] 2020-01-29 2020-01-29 [facility] [id number] 09:08:28 10:02:42 Visit Nhi More [id number] [place] [id number] [facility] [id number] [facility] 2020-01-24 2020-01-24 [facility] CHAYITO CUELLAR Orthopedics [phone] [facility] 10:00:00 10:00:00 tNAVDEEP OLVERA, at [facility] Otis SETHI [facility] Medicine [facility] [address] 2020-01-23 2020-01-23 [facility] [id number] [address] 09:30:00 09:30:00 t [employer] [facility] Family Medicine l Medicine Outpati ent Clinics 2020-01-20 2020-01-20 [facility] [id number] 09:10:00 09:10:00 t [employer] [facility] Family Medicine l Medicine Outpati ent Clinics 2020-01-15 2020-01-15 [facility] [id number] 14:52:00 14:52:00 t [employer] [facility] Family Medicine l Medicine Outpati ent Clinics 2019-12-23 2019-12-23 [facility] [id number] 16:00:00 16:00:00 [employer] [facility] Outpati ent Clinics 2019-11-25 2019-11-25 [facility] [id number] 09:30:00 09:30:00 [employer] [facility] Outpati ent Clinics 2019-07-31 2019-07-31 [facility] [id number] 11:40:00 11:40:00 [facility] Outpati ent Clinics 2019-07-03 2019-07-03 [facility] [id number] 11:00:00 11:00:00 [facility] Results Test Description Test Time Test Comments Results Result [facility] e Comments [U] XRAY ANKLE 2020-01-24 [facility] 3 VWS RIGHT 10:14:00 acquired, not [place] [id number] reported on Physicians this accession number.
--- NOTE | 2020-05-11 17:40 | RAD REPORT ---
EXAM DESCRIPTION: RAD - Foot Right 3 View - 05/11/2020 5:12 pm CLINICAL HISTORY: PAINlateral side without precipitating injury COMPARISON: No comparisons FINDINGS: No fracture, dislocation or periosteal reaction. No acute or destructive bone process. Deg enerative change present at the first MTP joint with joint space narrowing, marginal spurring and fla ttening of the metatarsal head articular surface. No angulation deformity. No air or foreign body in the soft tissues. Specifically, no lateral foot abnormality to explain pain pattern. IMPRESSION: Negative right foot examination for acute finding.
--- NOTE | 2020-05-11 17:58 | EDPHYS ---
Physician Documentation [facility] Name: Rand Kraus Age: 44 yrs Sex: Female : 1975 Arrival Date: 05/11/2020 Time: 14:18 Bed 24 Private MD: TIM Physician Ignacio Funk HPI: 05/11 17:52 This 44 yrs old Female presents to ER via Ambulatory with complaints of Foot elisha Injury. 17:52 The patient presents with decreased range of motion. The complaints affect the right elisha foot, dorsum of right foot. Context: The problem was sustained at an unknown location, resulted from a chronic condition, Mechanism of Injury: Unknown. Onset: The symptoms/episode began/occurred 10 day(s) ago. Modifying factors: The symptoms are alleviated by elevation of extremity, the symptoms are aggravated by movement. Associated signs and symptoms: The patient has no apparent associated signs or symptoms. Severity of symptoms: At their worst the symptoms were mild, moderate, in the emergency department the symptoms are unchanged. The patient has not experienced similar symptoms in the past. 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 - Social history:: Smoking status: Patient denies any tobacco usage or history of. - Family history:: not pertinent. ROS: 17:52 Constitutional: Negative for fever, chills, and weight loss, Eyes: Negative for injury, elisha pain, redness, and discharge, ENT: Negative for injury, pain, and discharge, Neck: Negative for injury, pain, and swelling, Cardiovascular: Negative for chest pain, palpitations, and edema, Respiratory: Negative for shortness of breath, cough, wheezing, and pleuritic chest pain, Abdomen/GI: Negative for abdominal pain, nausea, vomiting, diarrhea, and constipation, Back: Negative for injury and pain, : Negative for injury, bleeding, discharge, and swelling, Skin: Negative for injury, rash, and discoloration, Neuro: Negative for headache, weakness, numbness, tingling, and seizure, Psych: Negative for depression, anxiety, suicide ideation, homicidal ideation, and hallucinations, Allergy/Immunology: Negative for hives, rash, and allergies, Endocrine: Negative for neck swelling, polydipsia, polyuria, polyphagia, and marked weight changes. 17:52 MS/extremity: Positive for decreased range of motion, pain, of the lateral side of right foot. Exam: 17:52 Constitutional: This is a well developed, well nourished patient who is awake, alert, elisha and in no acute distress. Head/Face: Normocephalic, atraumatic. Eyes: Pupils equal round and reactive to light, extra-ocular motions intact. Lids and lashes normal. Conjunctiva and sclera are non-icteric and not injected. Cornea within normal limits. Periorbital areas with no swelling, redness, or edema. ENT: Nares patent. No nasal discharge, no septal abnormalities noted. Tympanic membranes are normal and external auditory canals are clear. Oropharynx with no redness, swelling, or masses, exudates, or evidence of obstruction, uvula midline. Mucous membranes moist. Neck: Trachea midline, no thyromegaly or masses palpated, and no cervical lymphadenopathy. Supple, full range of motion without nuchal rigidity, or vertebral point tenderness. No Meningismus. Chest/axilla: Normal chest wall appearance and motion. Nontender with no deformity. No lesions are appreciated. Cardiovascular: Regular rate and rhythm with a normal S1 and S2. No gallops, murmurs, or rubs. Normal PMI, no JVD. No pulse deficits. Respiratory: Lungs have equal breath sounds bilaterally, clear to auscultation and percussion. No rales, rhonchi or wheezes noted. No increased work of breathing, no retractions or nasal flaring. Abdomen/GI: Soft, non-tender, with normal bowel sounds. No distension or tympany. No guarding or rebound. No evidence of tenderness throughout. Back: No spinal tenderness. No costovertebral tenderness. Full range of motion. Skin: Warm, dry with normal turgor. Normal color with no rashes, no lesions, and no evidence of cellulitis. Neuro: Awake and alert, GCS 15, oriented to person, place, time, and situation. Cranial nerves II-XII grossly intact. Motor strength 5/5 in all extremities. Sensory grossly intact. Cerebellar exam normal. Normal gait. Psych: Awake, alert, with orientation to person, place and time. Behavior, mood, and affect are within normal limits. 17:52 Musculoskeletal/extremity: Extremities: all appear grossly normal, with no appreciated pain with palpation, ROM: full active range of motion, full passive range of motion, Circulation is intact in all extremities. Sensation intact. Compartment Syndrome exam of affected extremity: is normal. no numbness, no tingling, no sensation deficit, no palor, no weak pulses, DVT Exam: No signs of deep vein thrombosis. no pain, no swelling, no tenderness, negative Homans' sign noted on exam, no appreciated bluish discoloration, no erythema, no increased warmth. 17:52 Skin: Appearance: Color: normal in color, Temperature: normal temperature, Moisture: normal moisture, petechiae, not noted, ecchymosis, not noted, flushing, not noted, diaphoresis is not appreciated, swelling, is not appreciated. Vital Signs: 14:55 BP 111 / 81; Pulse 67; Resp 15 S; Temp 97.3(TE); Pulse Ox 100% on R/A; Weight 63.5 kg ca1 (R); Height 5 ft. 3 in. (160.02 cm) (R); Pain 7/10; 18:15 BP 115 / 78; Pulse 66; Resp 16 S; Pulse Ox 99% on R/A; jd3 14:55 Body Mass Index 24.80 (63.50 kg, 160.02 cm) ca1 MDM: 17:09 Patient medically screened. elisha 17:55 Differential diagnosis: fracture, sprain. Data reviewed: vital signs, nurses notes, [facility] radiologic studies, plain films. Data interpreted: secured entrance monitor:. Test interpretation: by ED physician or midlevel provider: plain radiologic studies. Counseling: I had a detailed discussion with the patient and/or guardian regarding: the historical points, exam findings, and any diagnostic results supporting the discharge/admit diagnosis, radiology results, the need for outpatient follow up, for definitive care, a orthopedic surgeon. 05/11 14:59 Order name: Foot Right 3 View XRAY ca1 05/11 17:51 Order name: Ice pack; Complete Time: 18:15 elisha 05/11 17:52 Order name: Walking boot; Complete Time: 18:23 elisha Administered Medications: 18:23 Drug: [place] (7.5 mg-325 mg) 2 tabs Route: PO; jd3 19:59 Follow up: Response: Medication administered at discharge.; RASS: Alert and Calm (0) jd3 Disposition: 05/11/20 17:58 Discharged to Home. Impression: Pain in right foot, Unspecified sprain of right foot. - Condition is Stable. - Discharge Instructions: Cryotherapy, [id number], Cryotherapy, Foot Pain. - Prescriptions for Tylenol- Codeine #3 300-30 mg Oral Tablet - take 2 tablet by ORAL route every 6 hours As needed; 30 tablet. Motrin IB 200 mg Oral Tablet - take 2 tablet by ORAL route every 6 hours As needed as needed with food; 30 tablet. - Medication Reconciliation Form, Thank You Letter, Antibiotic Education, Prescription Opioid Use form. - Follow up: Private Physician; When: 2 - 3 days; Reason: Recheck today's complaints, Continuance of care, Re-evaluation by your physician. Follow up: Fernando Baxter MD; When: 2 - 3 days; Reason: Recheck today's complaints, Continuance of care, Re-evaluation by your physician. Follow up: Toy Weinberg DPM; When: 2 - 3 days; Reason: Recheck today's complaints, Re-evaluation by your physician. - Problem is new. - Symptoms have improved. Signatures: Dispatcher [employer] EDMS Ignacio Funk MD MD cha Davies, Jonathon, RN RN jd3 Rand Camarena RN RN ca1 Corrections: (The following items were deleted from the chart) 17:51 17:51 Ortho shoe ordered. [facility] elisha 17:59 17:58 05/11/2020 17:58 Discharged to Home. Impression: Pain in right foot; Unspecified elisha sprain of right foot. Condition is Stable. Forms are Medication Reconciliation Form, Thank You Letter, Antibiotic Education, Prescription Opioid Use. Follow up: Private Physician; When: 2 - 3 days; Reason: Recheck today's complaints, Continuance of care, Re-evaluation by your physician. Follow up: Fernando Baxter; When: 2 - 3 days; Reason: Recheck today's complaints, Continuance of care, Re-evaluation by your physician. Problem is new. Symptoms have improved. elisha 18:30 17:59 05/11/2020 17:58 Discharged to Home. Impression: Pain in right foot; Unspecified jd3 sprain of right foot. Condition is Stable. Discharge Instructions: Cryotherapy, Wzfr-[id number], Cryotherapy, Foot Pain. Prescriptions for Tylenol-Codeine #3 300-30 mg Oral Tablet - take 2 tablet by ORAL route every 6 hours As needed; 30 tablet, Motrin IB 200 mg Oral Tablet - take 2 tablet by ORAL route every 6 hours As needed as needed with food; 30 tablet. and Forms are Medication Reconciliation Form, Thank You Letter, Antibiotic Education, Prescription Opioid Use. Follow up: Private Physician; When: 2 - 3 days; Reason: Recheck today's complaints, Continuance of care, Re-evaluation by your physician. Follow up: Fernando Baxter; When: 2 - 3 days; Reason: Recheck today's complaints, Continuance of care, Re-evaluation by your physician. Follow up: Dr. Toy Weinberg; When: 2 - 3 days; Reason: Recheck today's complaints, Re-evaluation by your physician. Problem is new. Symptoms have improved. elisha
--- NOTE | 2020-05-11 17:58 | ER ---
Nurse's Notes [facility] Name: Rand Kraus Age: 44 yrs Sex: Female : 1975 Arrival Date: 05/11/2020 Time: 14:18 Bed 24 Private MD: Diagnosis: Pain in right foot;Unspecified sprain of right foot Presentation: 05/11 14:55 Chief complaint: Patient states: R foot pain on the lateral side x weeks, last night ca1 was worse. Denies recent foot injury. Reports pain with walking. Coronavirus screen: Client denies travel out of the [place] in the last 14 days. At this time, the client does not indicate any symptoms associated with coronavirus-19. The client denies any previous COVID testing. Ebola Screen: Patient negative for fever greater than or equal to 101.5 degrees Fahrenheit, and additional compatible Ebola Virus Disease symptoms Patient denies exposure to infectious person. Patient denies travel to an Ebola-affected area in the 21 days before illness onset. No symptoms or risks identified at this time. Initial Sepsis Screen: Does the patient meet any 2 criteria? No. Patient's initial sepsis screen is negative. Does the patient have a suspected source of infection? No. Patient's initial sepsis screen is negative. Risk Assessment: Do you want to hurt yourself or someone else? Patient reports no desire to harm self or others. Onset of symptoms was May 11, 2020. 14:55 Method Of Arrival: Ambulatory ca1 14:55 Acuity: TONY 4 ca1 Triage Assessment: 17:35 Injury Description: no known injury. 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 - Social history:: Smoking status: Patient denies any tobacco usage or history of. - Family history:: not pertinent. Screenin:35 Abuse screen: Denies threats or abuse. Nutritional screening: No deficits noted. jd3 Tuberculosis screening: No symptoms or risk factors identified. Fall Risk Ambulatory Aid- None/Bed Rest/Nurse Assist (0 pts). Gait- Normal/Bed Rest/Wheelchair (0 pts) Mental Status- Oriented to own ability (0 pts). Total Lr Fall Scale indicates No Risk (0-24 pts). Assessment: 17:33 General: Appears in no apparent distress. uncomfortable, Behavior is calm, cooperative, jd3 appropriate for age. Pain: Complains of pain in lateral side of right foot Quality of pain is described as sharp, stabbing, Aggravated by weight bearing. Neuro: Level of Consciousness is awake, alert, obeys commands, Oriented to person, place, time, situation. Cardiovascular: Denies chest pain, Capillary refill < 3 seconds Patient's skin is warm and dry. Respiratory: Airway is patent Respiratory effort is even, unlabored, Respiratory pattern is regular, symmetrical, Denies cough, shortness of breath. GI: No signs and/or symptoms were reported involving the gastrointestinal system. : No signs and/or symptoms were reported regarding the genitourinary system. EENT: No signs and/or symptoms were reported regarding the EENT system. Derm: Skin is intact, Skin is dry, Skin is normal, Skin temperature is warm. Musculoskeletal: Circulation, motion, and sensation intact. Range of motion: intact in all extremities. 18:30 Reassessment: Patient appears in no apparent distress at this time. Patient and/or jd3 family updated on plan of care and expected duration. Pain level reassessed. Patient is alert, oriented x 3, equal unlabored respirations, skin warm/dry/pink. pt reported understanding of discharge instructions. Vital Signs: 14:55 BP 111 / 81; Pulse 67; Resp 15 S; Temp 97.3(TE); Pulse Ox 100% on R/A; Weight 63.5 kg ca1 (R); Height 5 ft. 3 in. (160.02 cm) (R); Pain 7/10; 18:15 BP 115 / 78; Pulse 66; Resp 16 S; Pulse Ox 99% on R/A; jd3 14:55 Body Mass Index 24.80 (63.50 kg, 160.02 cm) ca1 ED Course: 14:18 Patient arrived in ED. as 14:57 Triage completed. ca1 14:58 Arm band placed on right wrist. ca1 17:09 Foot Right 3 View XRAY In Process Unspecified. EDMS 17:09 Ignacio Funk MD is Attending Physician. [facility] 17:19 Delmer Tran, RN is Primary Nurse. jd3 17:34 Ice pack to injury. jd3 17:35 Patient has correct armband on for positive identification. Bed in low position. Call jd3 light in reach. Side rails up X 1. Adult w/ patient. Pulse ox on. NIBP on. 17:57 Fernando Baxter MD is Referral Physician. [facility] 17:59 Toy Weinberg DPM is Referral Physician. [facility] 18:30 No provider procedures requiring assistance completed. Patient did not have IV access jd3 during this emergency room visit. Administered Medications: 18:23 Drug: [place] (7.5 mg-325 mg) 2 tabs Route: PO; jd3 19:59 Follow up: Response: Medication administered at discharge.; RASS: Alert and Calm (0) jd3 Outcome: 17:58 Discharge ordered by . elihsa 18:30 Patient left the ED. jd3 18:30 Discharged to home ambulatory, with family. jd3 18:30 Condition: stable 18:30 Discharge instructions given to patient, family, Instructed on discharge instructions, follow up and referral plans. medication usage, Demonstrated understanding of instructions, follow-up care, medications, Prescriptions given X 2. Signatures: Dispatcher [employer] EDPR Ignacio Funk MD MD cha Martinez, Amelia as Delmer Tran, RN RN Rand Escalante RN RN ca1 Corrections: (The following items were deleted from the chart) 19:59 18:30 Response: Medication administered at discharge. jd3 jd3
[2020-05-11] MEDS ORDERED: HYDROCODONE/APAP 7.5/325 MG TAB ONE (18:29)
[2020-05-11 19:05] VITALS: BP 111/81; TEMP 97.3; O2SAT 100
== END 2020-05-11 18:30 | disposition home or self-care (01) ==
LOC: ER 14:17
DX: S93.601A Unspecified sprain of right foot, initial encounter (principal); K21.9 Gastro-esophageal reflux disease without esophagitis; I34.1 Nonrheumatic mitral (valve) prolapse
CPT/HCPCS: 99284

== ENCOUNTER 2021-02-09 20:42 | Inpatient (IN) | payer OTHER ==
--- OUTSIDE RECORDS SUMMARY | 2021-02-09 20:45 | XMS REPORT | Continuity of Care Document ---
:1975 Author Organization [facility] t Address [address] [place] [address] Care Team Providers Name Role Phone [place] Attending Clinician Unavailable MELANIE Attending Clinician Unavailable Chandra CASEY, K.H. Attending Clinician Problems Condition Condition Condition Status Onset Resolution Last Treating Co mments Source Name Details Category Date Date Treatment Clinician Date Right Right Problem Active Univers ankle pain ankle pain it y of [place] Physici ans Post-traum Post-traum Problem Active U nivers atic atic ity of [place] it[place] of it[place] of Physici right right ans ankle ankle Tarsal Tarsal Problem Active Univers coalition coalition ity of of right of right [place] foot foot Physici ans Peroneal Peroneal Problem Active Unive rs tendonitis tendonitis it y of of right of right [place] lower lower Physici extremity extremity ans Ankle Ankle Problem Active Univers impingemen impingemen it y of t t [place] syndrome, syndrome, Phys ici right right ans Peroneal Peroneal Problem Active Unive rs neuritis, neuritis, ity of right right [place] Physici ans Complex Complex Problem Active Univers regional regional ity of pain pain [place] syndrome I syndrome I Ph ysici ans Allergies, Adverse Reactions, Alerts Allergy Allergy Status Severity Reaction(s) Onset Inactive Treating Comm ents Source Name Type Date Date Clinician Aspirin Adverse Active nausea, [facility] Reaction [facility] Medications Ordered Filled Start Stop Current Ordering Indication Dosage Frequency Signature Comments Components Source Medication Medication Date Date Medication? Clinician (SIG) Name Name Pregabalin Pregabalin Yes BRENDA TAKE 1 Univers 50 MG Oral 50 MG Oral 1-12 MELANIE CAPSULE ity of Capsule Capsule 00:00: TECHNICAL SALES SUPPORT SPECIALIST DAILY. 00 Physici ans Pregabalin Pregabalin Yes BRENDA Q0.5D TAKE 1 Univers 75 MG Oral 75 MG Oral 1-05 MELANIE CAPSULE ity of Capsule Capsule 00:00: TECHNICAL SALES SUPPORT SPECIALIST TWICE [place] 00 DAILY Physici ans Cephalexin Cephalexin 2019-07 Yes NAVDEEP Q0.3333D TAKE 1 Univers 500 MG Oral 500 MG Oral 1-10 [place] CAPSULE 3 ity of Capsule Capsule 00:00: M.D. TIMES [place] 00 DAILY Physici UNTIL ans GONE. Promethazin Promethazin 2019-07 Yes NAVDEEP Q0.3333D TAKE 1 Univers e HCl - 25 e HCl - 25 1-10 [place] TABLET 3 ity of MG Oral MG Oral 00:00: M.D. TIMES [place] Tablet Tablet 00 DAILY Physici NEEDED. ans Lunesta Lunesta Yes Dwayne [address] 8-10 [facility] immediatel [facility] - 00:00: y before [facility] 00 bedtime l Outpati ent Clinics Citalopram Citalopram 2018-07 Yes Dwayne [address] [facility] Hydrobromid Hydrobromid 2-18 [facility] e e 00:00: [facility] 00 l Outpati ent Clinics Simona Jarvis Yes Dwayne [address] [facility] at least [facility] - 30 minutes Memoria before the l first meal Outpati of the day ent on an Clinics empty stomach Famotidine Famotidine Yes Dwayne [address] [facility] at bedtime [facility] Pantoprazol Pantoprazol Yes Dwayne [address] [facility] e Sodium e Sodium [facility] Albuterol Albuterol Yes Dwayne 2 PUFF(S) [facility] Sulfate HFA Sulfate HFA [facility] EVERY 6 [facility] - HOURS [facility]oria INHALED 30 l DAY(S) Outpati ent Clinics Eszopiclone Eszopiclone Yes Dwayne (Schedule [facility] IV Drug) [facility] - TAKE ONE Memoria (1) l TABLET(S) Outpati BY MOUTH ent ONCE A DAY Clinics AT BEDTIME. Advair Advair Yes Dwayne INHALE 1 [facility] Diskus Diskus [facility] PUFF TWICE Luke s - A DAY [facility] l Out[facility] ent Clinics Procedures Procedure Date / Time Performed Performing Clinician Israel e MR Tib Fib wo 2020-08-06 00:00:00 [facility] contrast [id number] Physicians Post Op Promis 29 2020-07-28 00:00:00 [facility] Survey Physicians US Extremity lower 2020-07-28 00:00:00 [facility] venous Doppler Unilat Physicians [id number] MR Ankle wo contrast 2020-01-24 00:00:00 [facility] [id number] Physicians Encounters Start End Encounter Admission Attending Care Care Encounter Source Date/Time Date/Time Type Type Clinicians Facility Department ID 2020-09-15 2020-09-15 CHAYITO Solomon [facility] [id number] Univers 14:15:00 14:15:00 t; NAVDEEP CUELLAR it y of RICHARD, M.D. [place] M.D. [facility] 2020-09-08 2020-09-08 Outpatient STLMLC [facility] [id number] [facility] 2020-08-25 2020-08-25 Outpatient STLMLC [facility] [id number] [facility] 2020-08-18 2020-08-18 CHAYITO [facility] [id number] Univers 13:00:00 13:00:00 t; [facility] [address] 2020-08-07 2020-08-07 Outpatient STLMLC STLMLC [id number] [facility] 2020-07-28 2020-07-28 CHAYITO [facility] [id number] Univers 15:00:00 15:00:00 t; NAVDEEP CUELLAR at [facility] Chely M.D. Sports [facility] [address] 2020-07-21 2020-07-21 CHAYITO [facility] [id number] Univers 16:00:00 16:00:00 t; NAVDEEP CUELLAR, at [facility] itFitz M.D. [facility], [address] 2020-06-26 2020-06-26 AppointCHAYITO Walker [facility] [id number] Univers 10:40:00 10:40:00 t; [facility] 2020-06-26 2020-06-26 Outpatient STLMLC STLMLC [id number] [facility] 2020-06-19 2020-06-19 AppointCHAYITO Mera [facility] [id number] Univers 14:00:00 14:00:00 t; NAVDEEP CUELLAR, miriam y nelida SETHI M.D. [facility] 2020-06-19 2020-06-19 Outpatient [facility] [id number] 07:47:00 07:47:00 [facility] 2020-05-26 2020-05-26 AppointCHAYITO Mera [facility] [id number] Univers 14:45:00 14:45:00 t; NAVDEEP CUELLAR, Trauma it y nelida SETHI M.D. [facility] 2020-05-25 2020-05-25 Outpatient STLMLC [facility] [id number] [facility] 00:[facility]00 00[facility]00[facility]00 [facility] 2020-02-24 2020-02-24 [facility] [id number] 10:15:00 10:15:00 t [employer] [place] [facility] l Medicine Outpati ent Clinics 2020-01-29 2020-01-29 Office Chandra [facility] [id number] 09:08:28 10:02:42 Visit Nhi More [id number] Isra [id number] Jeremy [id number] [facility] 2020-01-24 2020-01-24 AppointCHAYITO eMra [facility] [id number] Univers 10:00:00 10:00:00 t; NAVDEEP CUELLAR, at [facility] [place] SETHI Sports Sania Berg Medicine Physic [facility], [address] 2020-01-23 2020-01-23 [facility] [id number] 09:30:00 09:30:00 t [employer]) [facility] Medicine Outpati ent Clinics 2020-01-20 2020-01-20 [facility] [id number] 09:10:00 09:10:00 t [place] [employer] [place]) [facility] Outpati ent Clinics 2020-01-15 2020-01-15 [facility] [id number] 14:52:00 14:52:00 t [employer]) [facility] Medicine Outpati ent Clinics 2019-12-23 2019-12-23 [facility] [id number] 16:00:00 16:00:00 t [place] [employer] [place]) [facility] Medicine Outpati ent Clinics 2019-11-25 2019-11-25 [facility] [id number] 09:30:00 09:30:00 t [employer]. [facility] Medicine Outpati ent Clinics 2019-07-31 2019-07-31 [facility] [id number] 11:40:00 11:40:00 t [facility] Medicine Outpati ent Clinics 2019-07-03 2019-07-03 [facility] [id number] 11:00:00 11:00:00 t [facility] Medicine Outpati ent Clinics Results Test Description Test Time Test Comments Results Result Sour e Comments [U] XRAY ANKLE 2020-01-24 Images [facility] 3 VWS RIGHT 10:14:00 acquired, not [place] [id number] reported on Physicians this accession number.
--- NOTE | 2021-02-09 21:59 | RAD REPORT ---
EXAM DESCRIPTION: CT - Abdomen Pelvis Wo Contrast - 02/09/2021 9:36 pm CLINICAL HISTORY: Abdominal pain. ABD PAIN COMPARISON: No comparisons TECHNIQUE: CT imaging of the abdomen and pelvis was performed without contrast. Solid organ, bowel a nd vascular assessment is limited due to lack of IV and oral contrast. All CT scans are performed using dose optimization technique as appropriate and may include automated exposure control or mA/KV adjustment according to patient size. FINDINGS: The lower lung marie are clear. The liver, spleen, pancreas, adrenal glands and kidneys are within normal limits for a limited non-co ntrast examination. Several dilated small bowel loops are seen in the mid abdomen which are fluid-filled. The most signif icantly dilated loop measures up to 3 cm. The findings may represent early developing small bowel obs truction. The appendix is not identified as a discrete structure, however, no secondary findings of a ppendicitis are identified. The osseous structures are within normal limits. IMPRESSION: Several dilated and fluid-filled small bowel loops are seen in the left upper abdomen wh ich may represent an early developing mechanical small-bowel obstruction. A limited non-contrast examination was performed as detailed.
[2021-02-09 22:57] LABS: Urine Blood 1+ (Negative); Urine Glucose Negative (Negative); Urine Protein Negative (Negative); Urine Specific Gravity 1.025 (1.005-1.030); Urine pH 5.5 (5.0-7.0)
[2021-02-09 22:59] LABS: Absolute Lymphocytes (CBC) 1.7 K/uL (0.7-4.9); Basophils % 0.4 % (0-1.3); Hematocrit 38.4 % (36.0-45.0); MPV 8.1 fL (7.6-11.3); RBC Red Blood Cell Count 4.22 M/uL (3.86-4.86)
[2021-02-09 23:14] LABS: Albumin 4.2 g/dL (3.4-5.0); Bilirubin Direct 0.2 mg/dL (0-0.2); Bilirubin Total 0.7 mg/dL (0.2-1.0); Protein, Total 7.3 g/dL (6.4-8.2)
[2021-02-09] MEDS ORDERED: NA CHLORIDE 0.9% 1,000 ML ONE (23:23)
[2021-02-09] MEDS ORDERED: CEFTRIAXONE 1000 MG/VIAL ONE (23:23)
[2021-02-09] MEDS ORDERED: MORPHINE 4 MG/ML SYR ONE (23:23)
[2021-02-09] MEDS ORDERED: ONDANSETRON 4 MG/2 ML VIAL ONE (23:23)
[2021-02-09] MEDS ORDERED: METRONIDAZOLE 500mg IVPB 500 MG/100 ML BAG IV ONE (23:23)
[2021-02-09] MEDS ORDERED: NA CHLORIDE 0.9% 50 ML ONE (23:23)
[2021-02-09] MEDS ORDERED: LIDOCAINE VISCOUS 2% SOLN 15 ML UDC ONE (23:30)
[2021-02-09 23:31] LABS: Urine Bacteria <20 /HPF (<20); Urine RBC <5 /HPF (NONE SEEN)
--- NOTE | 2021-02-09 23:42 | EDPHYS ---
Physician Documentation [facility] Name: Rand Kraus Age: 45 yrs Sex: Female : 1975 Arrival Date: 02/09/2021 Time: 20:45 Bed 14 Private MD: ED Physician Denise Chacon HPI: 02/09 23:38 This 45 yrs old Female presents to ER via Ambulatory with complaints of ma2 Abdominal Pain. 23:38 The patient presents with abdominal pain. Onset: The symptoms/episode began/occurred ma2 gradually, 1 day(s) ago. Associated signs and symptoms: Pertinent positives: nausea and vomiting, Pertinent negatives: blood in stools, diarrhea, fever, vomiting. Severity of pain: At its worst the pain was moderate in the emergency department the pain is unchanged. The patient has not experienced similar symptoms in the past. 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 - Social history:: Smoking status: Patient denies any tobacco usage or history of. - Family history:: not pertinent. ROS: 23:38 Constitutional: Negative for fever, chills, and weight loss. ma2 23:38 All other systems are negative. Exam: 23:38 Constitutional: This is a well developed, well nourished patient who is awake, alert, ma2 and in no acute distress. Chest/axilla: Normal chest wall appearance and motion. Nontender with no deformity. No lesions are appreciated. Cardiovascular: Regular rate and rhythm with a normal S1 and S2. No gallops, murmurs, or rubs. Normal PMI, no JVD. No pulse deficits. Respiratory: Lungs have equal breath sounds bilaterally, clear to auscultation and percussion. No rales, rhonchi or wheezes noted. No increased work of breathing, no retractions or nasal flaring. Abdomen/GI: Soft, non-tender, with normal bowel sounds. there is mild distension however no tympany. No guarding or rebound. No evidence of tenderness throughout. Skin: Warm, dry with normal turgor. Normal color with no rashes, no lesions, and no evidence of cellulitis. MS/ Extremity: Pulses equal, no cyanosis. Neurovascular intact. Full, normal range of motion. Neuro: Awake and alert, GCS 15, oriented to person, place, time, and situation. Cranial nerves II-XII grossly intact. Motor strength 5/5 in all extremities. Sensory grossly intact. Cerebellar exam normal. Normal gait. Vital Signs: 21:01 BP 140 / 93; Pulse 78; Resp 20; Temp 98.3(O); Pulse Ox 100% ; Weight 66.68 kg; Height 5 kg ft. 3 in. (160.02 cm); 23:16 BP 132 / 83; Pulse 68; Resp 18 S; Pulse Ox 98% on R/A; ad5 21:01 Body Mass Index 26.04 (66.68 kg, 160.02 cm) kg MDM: 22:33 Patient medically screened. ma2 23:38 Differential diagnosis: cholecystitis, gastritis, gastroesophageal reflux disease, ma2 Hepatitis, Irritable bowel syndrome. Data reviewed: vital signs, nurses notes. Counseling: I had a detailed discussion with the patient and/or guardian regarding: the historical points, exam findings, and any diagnostic results supporting the discharge/admit diagnosis, the presence of at least one elevated blood pressure reading (>120/80) during this emergency department visit, the need for outpatient follow up. Response to treatment: the patient's symptoms have markedly improved after treatment. ED course: Discussed with Dr. Miller, general surgeon and he recommend NG tube antibiotic n.p.o. and repeat x-ray in the morning. 02/09 22:33 Order name: Basic Metabolic Panel; Complete Time: 23:36 ma2 02/09 22:33 Order name: CBC with Diff; Complete Time: 23:36 ma2 02/09 22:33 Order name: Hepatic Function; Complete Time: 23:36 ma2 02/09 22:33 Order name: Lipase; Complete Time: 23:36 ma2 02/09 22:57 Order name: Urine Dipstick-Ancillary; Complete Time: 23:36 EDMS 02/09 21:09 Order name: CT Abd/Pelvis - Without Contrast; Complete Time: 22:00 kg 02/09 22:37 Order name: US Abdomen Limited [facility] 02/09 23:14 Order name: Urine Microscopic Only; Complete Time: 23:36 [facility] 02/10 00:42 Order name: SARS-COV-2 RT PCR [facility] 02/10 04:55 Order name: CBC with Automated Diff [facility] 02/10 05:19 Order name: Comprehensive Metabolic Panel [facility] 02/10 05:20 Order name: Phosphorus [facility] 02/10 05:20 Order name: Magnesium [facility] 02/09 22:33 Order name: IV Saline Lock; Complete Time: 22:59 [facility] 02/09 22:33 Order name: Labs collected and sent; Complete Time: 22:59 [facility] 02/09 22:57 Order name: NG Tube; Complete Time: 08:59 [facility] 02/09 22:57 Order name: NPO; Complete Time: 23:02 [facility] 02/10 00:10 Order name: CONS Physician Consult [facility] 02/10 08:40 Order name: RAD [facility] 02/10 11:07 Order name: [facility] Administered Medications: 23:14 Drug: NS 0.9% 1000 ml Route: IV; Rate: 1 bolus; Site: right antecubital; ad5 02/10 01:29 Follow up: IV Status: Completed infusion; IV Intake: 1000ml ad5 02/09 23:14 Drug: Zofran (Ondansetron) 4 mg Route: IVP; Site: right antecubital; ad5 23:37 Follow up: Response: No adverse reaction; Nausea is decreased ad5 23:14 Drug: morphine 4 mg {Note: RASS 0.} Route: IVP; Site: right antecubital; ad5 23:37 Follow up: Response: No adverse reaction; Pain is decreased; RASS: Alert and Calm (0) ad5 23:14 Drug: Rocephin (cefTRIAXone) 1 grams Route: IV; Rate: calculated rate; Site: right ad5 antecubital; 23:37 Follow up: Response: No adverse reaction; IV Status: Completed infusion ad5 23:44 Drug: Flagyl (metroNIDAZOLE) 500 mg Volume: 100 ml; Route: IVPB; Rate: 200 ml/hr; ad5 Infused Over: 30 mins; Site: right antecubital; 02/10 01:29 Follow up: Response: No adverse reaction; IV Status: Completed infusion ad5 Disposition Summary: 02/09/21 23:41 Hospitalization Ordered Hospitalization Status: Inpatient Admission nm2 Provider: Catrachito Beauchamp Condition: Stable ma Problem: new ma2 Symptoms: are unchanged ma2 Bed/Room Type: Standard ma2 Location: Telemetry/MedSurg (Inpatient)(02/10/21 18:47) dw Room Assignment: 222(02/10/21 18:47) Diagnosis - Vomiting - with small bowel obstruction ma2 Forms: - Medication Reconciliation Form ma2 - SBAR form ma2 Signatures: Dispatcher [employer] EDMS Katy Dumont RN RN Jarrod Craig PA PA jmm Garcia, Cindy, RN RN Denise Seaman MD MD ma2 Graham, Kristen, RN RN kg Winston Lux Corrections: (The following items were deleted from the chart) 02/09 23:20 23:06 CORONAVIRUS+MR.LAB.BRZ ordered. [facility] 02/10 00:44 02/09 23:41 Telemetry/MedSurg (Inpatient) nm2 02/10 00:44 02/09 23:41 ma2 02/10 18:47 00:44 [facility] ER HOLD [facility] 18:47 00:44 ERHOLD- [facility]
--- NOTE | 2021-02-09 23:42 | ER ---
Nurse's Notes [facility] Name: Rand Kraus Age: 45 yrs Sex: Female : 1975 Arrival Date: 02/09/2021 Time: 20:45 Bed 14 Private MD: Diagnosis: Vomiting-with small bowel obstruction Presentation: 02/09 21:01 Chief complaint: Patient states: Abdominal pain after dinner 02/08 then subsided and kg started again today after eating. Coronavirus screen: Client denies travel out of the [place] in the last 14 days. At this time, unable to obtain information related to travel outside the [place] At this time, the client does not indicate any symptoms associated with coronavirus-19. Ebola Screen: Patient negative for fever greater than or equal to 101.5 degrees Fahrenheit, and additional compatible Ebola Virus Disease symptoms Patient denies exposure to infectious person. Patient denies travel to an Ebola-affected area in the 21 days before illness onset. Initial Sepsis Screen: Does the patient meet any 2 criteria? No. Patient's initial sepsis screen is negative. Does the patient have a suspected source of infection? No. Patient's initial sepsis screen is negative. Risk Assessment: Do you want to hurt yourself or someone else? Patient reports no desire to harm self or others. Onset of symptoms was February 08, 2021. 21:01 Method Of Arrival: Ambulatory kg 21:01 Acuity: TONY 3 kg Triage Assessment: 21:04 General: Appears in no apparent distress. Behavior is calm, cooperative, appropriate kg for age, quiet. Pain: Complains of pain in right upper quadrant and left upper quadrant Pain currently is 10 out of 10 on a pain scale. at worst was 10 out of 10 on a pain scale. level that patient reports is acceptable is 6 out of 10 on a pain scale. GI: Reports upper abdominal pain, nausea. 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 - Social history:: Smoking status: Patient denies any tobacco usage or history of. - Family history:: not pertinent. Screenin:08 Abuse screen: Denies threats or abuse. Denies injuries from another. Nutritional kg screening: No deficits noted. Tuberculosis screening: No symptoms or risk factors identified. Fall Risk None identified. Assessment: 22:45 General: Appears uncomfortable, Behavior is calm, cooperative, appropriate for age. ad5 Pain: Complains of pain in upper abd. Neuro: No deficits noted. Level of Consciousness is awake, alert, obeys commands, Oriented to person, place, time, situation, Appropriate for age. Cardiovascular: No deficits noted. Capillary refill < 3 seconds Patient's skin is warm and dry. Respiratory: No deficits noted. Airway is patent Respiratory effort is even, unlabored, Respiratory pattern is regular, symmetrical. GI: Abd is soft Abdomen is tender to palpation in epigastric area Reports upper abdominal pain, nausea, vomiting. : No deficits noted. No signs and/or symptoms were reported regarding the genitourinary system. Derm: Skin is pink, warm \T\ dry. Vital Signs: 21:01 BP 140 / 93; Pulse 78; Resp 20; Temp 98.3(O); Pulse Ox 100% ; Weight 66.68 kg; Height 5 kg ft. 3 in. (160.02 cm); 23:16 BP 132 / 83; Pulse 68; Resp 18 S; Pulse Ox 98% on R/A; ad5 21:01 Body Mass Index 26.04 (66.68 kg, 160.02 cm) kg ED Course: 20:45 Patient arrived in ED. cf2 21:04 Triage completed. kg 21:08 Patient has correct armband on for positive identification. kg 21:27 Chele Pena, RN is Primary Nurse. em 21:36 CT Abd/Pelvis - Without Contrast In Process Unspecified. EDMS 22:08 Winston Lux is Primary Nurse. ad5 22:20 Denise Chacon MD is Attending Physician. jmm 22:44 US Abdomen Limited Sent. ad5 22:50 US Abdomen Limited In Process Unspecified. EDMS 22:59 Initial lab(s) drawn, by me, sent to lab. Inserted saline lock: 20 gauge in right ad5 antecubital area, using aseptic technique. Blood collected. 23:41 Catrachito Beauchamp is Hospitalizing Provider. [facility] 02/10 01:27 No provider procedures requiring assistance completed. NGT: inserted 12 Fr. via left ad5 nare. to intermittent suction. Returned gastric contents. Patient tolerated well. Patient admitted, IV remains in place. 07:14 Primary Nurse role handed off by Winston Lux Administered Medications: 02/09 23:14 Drug: NS 0.9% 1000 ml Route: IV; Rate: 1 bolus; Site: right antecubital; ad5 02/10 01:29 Follow up: IV Status: Completed infusion; IV Intake: 1000ml ad5 02/09 23:14 Drug: Zofran (Ondansetron) 4 mg Route: IVP; Site: right antecubital; ad5 23:37 Follow up: Response: No adverse reaction; Nausea is decreased ad5 23:14 Drug: morphine 4 mg {Note: RASS 0.} Route: IVP; Site: right antecubital; ad5 23:37 Follow up: Response: No adverse reaction; Pain is decreased; RASS: Alert and Calm (0) ad5 23:14 Drug: Rocephin (cefTRIAXone) 1 grams Route: IV; Rate: calculated rate; Site: right ad5 antecubital; 23:37 Follow up: Response: No adverse reaction; IV Status: Completed infusion ad5 23:44 Drug: Flagyl (metroNIDAZOLE) 500 mg Volume: 100 ml; Route: IVPB; Rate: 200 ml/hr; ad5 Infused Over: 30 mins; Site: right antecubital; 02/10 01:29 Follow up: Response: No adverse reaction; IV Status: Completed infusion ad5 Intake: : IV: 1000ml; Total: 1000ml. ad5 Outcome: 02/09 23:41 Decision to Hospitalize by Provider. ma2 02/10 01:27 Admitted to ER Hold. [facility]. ad5 Condition: stable Instructed on the need for admit, Demonstrated understanding of instructions. 19:57 Patient left the ED. jb4 Signatures: Dispatcher [employer] EDMS Brenda Lowry Joel, PA PA jmm Munoz, Edgar, RN RN em Bryson, James, RN RN 4 Denise Chacon MD MD [facility] Buffy Wade cf2 Caitlin Gilliland, RN RN kg Winston Lux ad5
--- NOTE | 2021-02-10 00:37 | P.HP ---
Certification for Inpatient Patient admitted to: Inpatient With expected LOS: <2 Midnights Patient will require the following post-hospital care: None Practitioner: I am a practitioner with admitting privileges, knowledge of patient current condition, hospital course, and medical plan of care. Services: Services provided to patient in accordance with Admission requirements found in Title 42 Section 412.3 of the Code of Federal Regulations Patient History Date of Service: 02/10/21 Primary Care Provider: Joshua Reason for admission: SBO History of Present Illness: Ms. Kraus is a 45 yo F with mitral valve prolapse who presents with nausea, vomiting and severe epigastric abdominal pain beginning yesterday at 4pm after she at [facility]. She said for the past few days she has had pain in the middle of her back and a poor appetite. She says pain is worse with lying flat, urinating, eating. She said her last BM was this morning. CT scan showed several dilated and fluid filled small bowel loops seen in the left upper abdomen which may represent early developing mechanical SBO. Allergies aspirin Allergy (Verified 02/10/21 00:17) Itching/Hives/Rash - Past Medical/Surgical History -: mitral valve prolapse -: appendectomy -: total abdominal hysterectomy -: right ankle sx - Family History Family History: Reviewed- Non-Contributory - Social History Smoking Status: Never smoker Alcohol use: Yes CD- Drugs: No Caffeine use: Yes Place of Residence: Home Review of Systems 10-point ROS is otherwise unremarkable Gastrointestinal: Nausea, Vomiting, Abdominal Pain Physical Examination - Physical Exam General: Alert, In no apparent distress HEENT: Atraumatic, PERRLA, Mucous membr. moist/pink, EOMI, Sclerae nonicteric Neck: Supple, 2+ carotid pulse no bruit, No LAD, Without JVD or thyroid abnormality Respiratory: Clear to auscultation bilaterally, Normal air movement Cardiovascular: Regular rate/rhythm, Normal S1 S2 Gastrointestinal: Normal bowel sounds, No ascites, No masses, No rebound, No guarding, Tenderness Musculoskeletal: No tenderness Integumentary: No rashes Neurological: Normal speech, Normal strength at 5/5 x4 extr, Normal tone, Normal affect Lymphatics: No axilla or inguinal lymphadenopathy - Studies Laboratory Data (last 24 hrs) 02/09/21 22:50: WBC 8.30, Hgb 13.2, Hct 38.4, Plt Count 213 02/09/21 22:50: Sodium 139, Potassium 4.0, BUN 23 H, Creatinine 1.02, Glucose 1 14 H, Total Bilirubin 0.7, AST 14 L, ALT 26, Alkaline Phosphatase 67, Lipase 66 L Assessment and Plan - Problems (Diagnosis) (1) SBO (small bowel obstruction) Current Visit: Yes Status: Acute (2) Mitral valve prolapse Current Visit: Yes Status: Chronic - Plan surgery consulted NPO, NG tube on LIWS, continue IVF continue IV antibiotics KUB in the AM antiemetics and pain management as needed SCDs Discharge Plan: Home Plan to discharge in: 48 Hours - Advance Directives Does patient have a Living Will: No Does patient have a Durable POA for Healthcare: No - Code Status/Comfort Care Code Status Assessed: Yes (full code ) Critical Care: No Time Spent Managing Pts Care (In Minutes): 70
[2021-02-10] MEDS ORDERED: ONDANSETRON 4 MG/2 ML VIAL IV PRN (00:53)
[2021-02-10] MEDS ORDERED: ACETAMINOPHEN 500 MG TAB PO PRN (00:53)
[2021-02-10] MEDS: NA CHLORIDE 0.9% 1,000 ML IV SCH ×3 (01:00→22:34)
[2021-02-10] MEDS ORDERED: OXYMETAZOLINE HCL 0.05% 15ML NAS ONE (01:10)
[2021-02-10] MEDS ORDERED: LIDOCAINE VISCOUS 2% SOLN 15 ML UDC ONE (01:10)
[2021-02-10] MEDS ORDERED: NA CHLORIDE 0.9% 1,000 ML ONE ×2 (02:07→11:56)
[2021-02-10 02:28] VITALS: BMI 26.0
[2021-02-10] MEDS: MORPHINE 2 MG/ML SYR IV PRN ×4 (03:11→22:34)
[2021-02-10] MEDS ORDERED: MORPHINE 2 MG/ML SYR ONE ×3 (03:29→16:33)
[2021-02-10 04:54] LABS: Absolute Lymphocytes (CBC) 2.1 K/uL (0.7-4.9); Basophils % 0.4 % (0-1.3); Lymphocytes % 35.8 % (15.3-44.8); MPV 8.2 fL (7.6-11.3); RBC Red Blood Cell Count 3.84 M/uL (3.86-4.86)
[2021-02-10 05:12] LABS: Albumin 3.6 g/dL (3.4-5.0); Bilirubin Total 0.8 mg/dL (0.2-1.0); Magnesium 1.9 mg/dL (1.8-2.4); Phosphorus 3.6 mg/dL (2.5-4.9); Protein, Total 6.2 g/dL (6.4-8.2)
[2021-02-10] MEDS: METRONIDAZOLE 500mg IVPB 500 MG/100 ML BAG IV SCH ×2 (08:00→16:00)
--- NOTE | 2021-02-10 08:21 | RAD REPORT ---
EXAM DESCRIPTION: US - Abdomen Exam Limited - 02/09/2021 10:50 pm CLINICAL HISTORY: ruq abd pain COMPARISON: No comparisons FINDINGS: The gallbladder demonstrates no gallstones. No pericholecystic fluid or gallbladder wall t hickening. The common bile duct is normal measuring 3 mm. The liver demonstrates no findings of intrahepatic biliary dilatation. IMPRESSION: Unremarkable examination.
--- NOTE | 2021-02-10 08:39 | RAD REPORT ---
EXAM DESCRIPTION: RAD - Abdomen 1 View (KUB) - 02/10/2021 6:19 am CLINICAL HISTORY: SBO Pain COMPARISON: Abdomen Pelvis Wo Contrast dated 02/09/2021 FINDINGS: Two mildly prominent small bowel loops persist in the left upper quadrant. Enteric tube co ils in the stomach. No pneumoperitoneum evident. No significant bony findings. IMPRESSION: A couple of mildly prominent small bowel loops persist in the left upper quadrant. Other marlow, there has been improvement in the bowel distention pattern since comparative study.
[2021-02-10] MEDS ORDERED: METRONIDAZOLE 500mg IVPB 500 MG/100 ML BAG IV ONE ×2 (08:49→16:33)
--- NOTE | 2021-02-10 11:06 | RAD REPORT ---
EXAM DESCRIPTION: XR Chest, 1 View CLINICAL HISTORY: The patient is 45 years old and is Female; NGT placement TECHNIQUE: Frontal view of the chest. COMPARISON: No relevant prior studies available. FINDINGS: Lungs: No consolidation. Pleural space: Unremarkable. No pneumothorax. Heart: Unremarkable. Mediastinum: Unremarkable. Bones/joints: Unremarkable. Tubes, lines and devices: Nasogastric tube coursing below the diaphragm and coiled in the left u pper quadrant. IMPRESSION: 1. No consolidation. 2. Nasogastric tube coursing below the diaphragm and coiled in the left upper quadrant. Electronically signed by: Sulaiman Valentin MD 02/10/2021 1:54 AM CDT Due to temporary technical issues with the PACS/Fluency reporting system, reports are being signed by the in house radiologist without review as a courtesy to ensure prompt reporting. The interpreting r adiologist is fully responsible for the content of the report.
--- NOTE | 2021-02-10 12:07 | CON ---
Date of Consultation: 02/10/2021 Reason For Consultation: Small bowel obstruction. History Of Present Illness: The patient is a 45-year-old female, who presents with a 2-day history o f nausea, vomiting. No diarrhea or constipation. Had a small bowel movement yesterday morning and n ot passed gas since that time. She states that it happened after she ate some pasta on Monday and she started eating again and the symptoms returned more aggressively. She came to the ER, wa s admitted with possible small bowel obstruction and I was consulted. She is awake, alert. Has an N G tube in place. Has not had any flatus yet and no bowel movement today. Pain is a little bit fritz r. It is diffuse in nature. No sore throat, runny nose, cough, headaches, or dizziness. No chest p ain. No fever or chills. Review of Systems: Otherwise unremarkable. Past Medical History: Significant for mitral valve prolapse. Past Surgical History: Significant for appendectomy, total abdominal hysterectomy, , right ankle surgery. Allergies: INCLUDE ASPIRIN. Social History: She does not smoke and drinks alcohol socially. Family History: Noncontributory. Physical Examination: Vital Signs: Currently stable. She is afebrile. General: She is awake, alert, and oriented x3. Head and Neck: Cranial nerves 2 through 12 are grossly within normal limits. No neck masses. No JV D. Throat clear. Neck is supple. Chest: Clear. Heart: S1, S2. Abdomen: Soft, distended. Hypoactive bowel sounds. Minimal tenderness. No rebound, rigidity, or g uarding. No abdominal wall hernia appreciated. Extremities: Adequately perfused. Nontender. Neuro: Nonfocal. Laboratory Data: Reviewed. Her white count is normal. There is no left shift. Chemistry reviewed, essentially within normal limits. CT of the abdomen and pelvis reviewed from last night, which show s several dilated and fluid filled small bowel loops seen in the left upper abdomen, which may repres ent early mechanical small bowel obstruction. A limited noncontrast exam was performed in detail. S he had a followup KUB this morning, which shows improvement; however, she still has a couple of mildl y prominent small bowel loops persisting in the left upper quadrant, but it has improved. Assessment: Small bowel obstruction, perhaps gastroenteritis. Recommendations: Continue n.p.o., NG tube, IV fluids, IV antibiotics, serial abdominal exam. We graciela l get another x-ray tomorrow and if clinically improves, we will start her on liquids tomorrow and ad valenzuela as tolerated. If she does not improve with conservative management, she may need intervention. Plan of care discussed with Dr. Beauchamp and the patient. /MODL Voice ID: [id number] Report ID: [id number]
--- NOTE | 2021-02-10 15:34 | P.PN ---
Date of Service: 02/10/21 Patient seen and examined. He is complaining of headache. NG-tube output: 300 ml. Plan: Patient seen by Dr. Miller. Conservative management with supportive measures IV fluid, and IV analgesics as needed. Serial abdominal examinations. Empiric antibiotics.
[2021-02-10] MEDS ORDERED: FENTANYL CITR 100 MCG/2 ML IV ONE (18:20)
[2021-02-10] MEDS ORDERED: FENTANYL CITR 100 MCG/2 ML ONE (18:32)
[2021-02-10] MEDS: CEFTRIAXONE/SWI 1gm 1 GM/10 ML SYR IVP SCH (22:34)
[2021-02-10] MEDS ORDERED: CEFTRIAXONE 1 GM/NS 50 ML 1 GM/50 ML BAG IV SCH (23:00)
[2021-02-11] MEDS: METRONIDAZOLE 500mg IVPB 500 MG/100 ML BAG IV SCH ×3 (01:17→16:16)
[2021-02-11 05:56] LABS: Absolute Lymphocytes (CBC) 1.3 K/uL (0.7-4.9); Basophils % 0.4 % (0-1.3); Lymphocytes % 21.2 % (15.3-44.8); MPV 8.4 fL (7.6-11.3); RBC Red Blood Cell Count 3.79 M/uL (3.86-4.86)
[2021-02-11 06:12] LABS: Albumin 3.3 g/dL (3.4-5.0); Bilirubin Total 0.8 mg/dL (0.2-1.0); Magnesium 1.7 mg/dL (1.8-2.4); Protein, Total 5.9 g/dL (6.4-8.2)
[2021-02-11] MEDS ORDERED: MAGNESIUM SULFATE 1 gm IVPB 1 GM/100 ML BAG IV ONE (06:33)
--- NOTE | 2021-02-11 09:00 | RAD REPORT ---
EXAM DESCRIPTION: RAD - Abdomen W Erect - 02/11/2021 8:51 am CLINICAL HISTORY: Abdominal pain FINDINGS: Mildly dilated loops of small bowel left abdomen without significant change Air within the colon. A NG tube is coiled within the stomach. No free air is seen beneath the diaphragm The obstruction has improved since February 09, 2021
--- NOTE | 2021-02-11 09:01 | PN ---
Date of Progress Note: 02/11/2021 Subjective: The patient is awake, alert. Pain is better. Minimal outflow from the NG tube. She fried s not had a bowel movement. The patient states that she does not have a bowel movement without tony tance and requiring enemas and laxatives, and only has bowel movements once a week. She is from out of town and did see a GI doctor, was never given a diagnosis of what this is, but appears that she fried s some sort of motility disorder and perhaps even colonic inertia. Her x-ray is pending right now. Her vitals are stable. She is afebrile. Laboratory Data: Reviewed. No significant abnormalities. Abdomen is benign. Assessment: Small-bowel obstruction. Motility disorder possible. Recommendations: I will discuss the case with Dr. Beauchamp regarding getting a GI consultation as this appears to be a complicated GI case rather than a surgical case. I will go ahead and check the x-ra y and if it is improved, we may test her with sips of clear liquids and clamp the NG tube. If it is worse, then we may need a small bowel series. I will make further recommendations as the case sonal BANSAL/ALTAGRACIA Voice ID: [id number] Report ID: [id number]
[2021-02-11] MEDS: NA CHLORIDE 0.9% 1,000 ML IV SCH ×2 (12:50→17:00)
--- NOTE | 2021-02-11 13:08 | P.PN ---
Subjective Date of Service: 02/11/21 Primary Care Provider: Joshua Chief Complaint: SBO Patient states she is doing better today. Very low NG tube output since yesterday. She denies abdominal pain. No BM yet. Physical Examination - Vital Signs Temperature: 97.6 F Blood Pressure: 101/56 Pulse: 81 Respirations: 18 Pulse Ox (%): 97 - Physical Exam General: Alert, In no apparent distress, Oriented x3 HEENT: Mucous membr. moist/pink Neck: JVD not distended Respiratory: Clear to auscultation bilaterally, Normal air movement Cardiovascular: No edema, Regular rate/rhythm, Normal S1 S2 Gastrointestinal: Normal bowel sounds, Soft and benign, Non-distended, Tenderness (Mild diffuse tenderness) Musculoskeletal: No swelling Integumentary: No rashes, No erythema Neurological: Normal strength at 5/5 x4 extr Assessment And Plan - Current Problems (Diagnosis) (1) SBO (small bowel obstruction) Current Visit: Yes Status: Acute (2) Mitral valve prolapse Current Visit: Yes Status: Chronic - Plan Clinically improved. Repeat KUB shows improvement in small bowel pattern. Small-bowel series ordered by Dr. Miller Patient may need motility agents-Reglan or erythromycin pending small-bowel series result. Serial abdominal examination. NG tube removal and feeding per Dr. Miller. Continue antibiotics for now. Pain management as needed.
--- NOTE | 2021-02-11 19:20 | RAD REPORT ---
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 No obstruction or free air. No suspiciou s calcifications. Gastric size and mucosal fold pattern are normal. No delay in transit of contrast into the small renea l. Small bowel is normal in diameter with no mucosal fold thickening. No intrinsic or extrinsic mass identifiable. Terminal ileum has normal appearance. Transit time to the colon is normal. No fluoroscopy was performed. Total images acquired: 14 IMPRESSION: Normal small bowel series. No bowel obstruction identified.
[2021-02-11] MEDS: CEFTRIAXONE/SWI 1gm 1 GM/10 ML SYR IVP SCH (20:36)
[2021-02-12] MEDS: METRONIDAZOLE 500mg IVPB 500 MG/100 ML BAG IV SCH ×3 (00:14→15:38)
[2021-02-12] MEDS: NA CHLORIDE 0.9% 1,000 ML IV SCH ×3 (03:00→21:56)
[2021-02-12 03:25] LABS: Urine Appearance CLEAR (Clear); Urine Bilirubin NEGATIVE (Negative); Urine Blood TRACE (Negative); Urine Color YELLOW (Yellow); Urine Glucose NEGATIVE (Negative); Urine Protein NEGATIVE (Negative); Urine Specific Gravity 1.025 (1.005-1.030); Urine Urobilinogen 0.2 mg/dL (0.2-1.0); Urine pH 5.5 (5.0-7.0)
[2021-02-12 03:42] LABS: Urine Bacteria 20-50 /HPF (<20); Urine Mucus 1+ /HPF (NONE SEEN)
[2021-02-12 06:08] LABS: Potassium 3.7 mmol/L (3.5-5.1)
[2021-02-12] MEDS ORDERED: POTASSIUM 25 MEQ EFFERV TAB PO ONE (06:11)
--- NOTE | 2021-02-12 13:22 | P.PN ---
Subjective Date of Service: 02/12/21 Primary Care Provider: Joshua Chief Complaint: SBO Patient patient reports several diarrheal bowel movements since yesterday. Small-bowel series shows no obstruction. She denies abdominal pain. Physical Examination - Vital Signs Temperature: 97.9 F Blood Pressure: 128/71 Pulse: 69 Respirations: 18 Pulse Ox (%): 100 - Physical Exam General: Alert, In no apparent distress, Oriented x3 HEENT: Mucous membr. moist/pink Neck: JVD not distended Respiratory: Clear to auscultation bilaterally, Normal air movement Cardiovascular: No edema, Regular rate/rhythm, Normal S1 S2 Gastrointestinal: Normal bowel sounds, Soft and benign, Non-distended, No tenderness Musculoskeletal: No swelling Integumentary: No rashes, No erythema Neurological: Normal strength at 5/5 x4 extr Assessment And Plan - Current Problems (Diagnosis) (1) SBO (small bowel obstruction) Current Visit: Yes Status: Acute (2) Mitral valve prolapse Current Visit: Yes Status: Chronic - Plan Clinically improved. Patient now with multiple bowel movements Case discussed Dr. Miller. NG-tube removed today Trial of soft diet UA suggest UTI Continue antibiotics and follow urine culture Pain management as needed. Patient will need GI followup as an outpatient for colonoscopy.
--- NOTE | 2021-02-12 20:18 | PN ---
Date of Progress Note: 02/12/2021 Subjective: The patient is awake, alert, had several bowel movements this morning. No nausea or vom iting. Minimal residual, tolerating clear liquids. Small bowel series was negative for obstruction. Vitals are stable and afebrile. Laboratory Data: Reviewed. Abdomen is completely benign. Assessment: Small bowel obstruction, resolved. Recommendations: Discontinued NG tube. Advance diet as tolerated. Once GI soft is tolerated, the p atient can be discharged to home. Follow up with a GI doctor for her motility issues. No need for a ny surgical intervention. /MODL Voice ID: [id number] Report ID: [id number]
[2021-02-12] MEDS: CEFTRIAXONE/SWI 1gm 1 GM/10 ML SYR IVP SCH (21:55)
[2021-02-13 03:13] VITALS: O2SAT 98
[2021-02-13 05:46] LABS: Absolute Lymphocytes (CBC) 1.5 K/uL (0.7-4.9); Basophils % 0.5 % (0-1.3); Hematocrit 34.8 % (36.0-45.0); Lymphocytes % 39.9 % (15.3-44.8); MPV 8.1 fL (7.6-11.3); RBC Red Blood Cell Count 3.84 M/uL (3.86-4.86)
[2021-02-13] MEDS: METRONIDAZOLE 500mg IVPB 500 MG/100 ML BAG IV SCH ×2 (07:35)
--- NOTE | 2021-02-13 08:42 | PN ---
Date of Progress Note: 02/13/2021 Subjective: The patient is awake, alert. No complaints. Vitals are stable. Afebrile. Tolerating diet, having bowel movements. Abdomen is benign. Assessment: Small bowel obstruction and motility disorder. The obstruction is resolved. Recommendation: Cleared for discharge. Follow up with GI doctor as an outpatient. /MODL Voice ID: [id number] Report ID: [id number]
[2021-02-13 09:31] VITALS: BP 109/63; TEMP 97.6
--- NOTE | 2021-02-13 11:26 | P.DS ---
Admission Date: 02/10/21 Discharge Date: 02/13/21 Primary Care Provider: Joshua Disposition: ROUTINE DISCHARGE Discharge Condition: FAIR Reason for Admission: SBO - Problems (1) SBO (small bowel obstruction) Current Visit: Yes Status: Acute (2) Mitral valve prolapse Current Visit: Yes Status: Chronic Brief History of Present Illness: 45 yo woman presented with nausea, vomiting and severe epigastric abdominal pain after a meal. She said her last BM was the morning of admission. CT scan showed several dilated and fluid filled small bowel loops seen in the left upper abdomen which may represent early developing mechanical SBO. Patient not tolerating fluid or food. NG tube was inserted in the ED and patient admitted for further management. Hospital Course: Patient admitted to the medical floor and treated supportively with IV fluid, started on IV antibiotics. She was seen in consultation by general surgery Dr. Miller who recommended only medical management. Her symptoms improved, serial KUB demonstrated improvement in the small-bowel dilatation. She had several bowel movement after small-bowel series. Small-bowel series demonstrated resolution of SBO. Patient suspected to have had ileus and motility issues. NG-tube was removed, patient tolerated diet. She is deemed clinically stable for discharge. She will follow with gastroenterology as outpatient for arrangement for colonoscopy. Vital Signs/Physical Exam: Temp Pulse Resp BP Pulse Ox 97.6 F 57 18 109/63 98 02/13/21 08:00 02/13/21 08:00 02/13/21 08:00 02/13/21 08:00 02/13/21 08:00 General: Alert, In no apparent distress HEENT: Mucous membr. moist/pink Neck: JVD not distended Respiratory: Clear to auscultation bilaterally, Normal air movement Cardiovascular: No edema, Regular rate/rhythm, Normal S1 S2 Gastrointestinal: Normal bowel sounds, Soft and benign, No tenderness Musculoskeletal: No swelling Integumentary: No rashes, No erythema Neurological: Normal strength at 5/5 x4 extr Laboratory Data at Discharge: WBC 3.70 K/uL (4.3-10.9) L D 02/13/21 05:35 Hgb 12.0 g/dL (12.0-15.0) 02/13/21 05:35 Hct 34.8 % (36.0-45.0) L 02/13/21 05:35 Plt Count 181 K/uL (152-406) 02/13/21 05:35 Sodium 142 mmol/L (136-145) 02/13/21 05:35 Potassium 4.0 mmol/L (3.5-5.1) 02/13/21 05:35 BUN 10 mg/dL (7-18) 02/13/21 05:35 Creatinine 0.76 mg/dL (0.55-1.3) 02/13/21 05:35 Glucose 103 mg/dL (74-106) 02/13/21 05:35 Phosphorus 3.0 mg/dL (2.5-4.9) 02/11/21 05:34 Magnesium 1.7 mg/dL (1.8-2.4) L 02/12/21 05:11 Total Bilirubin 0.8 mg/dL (0.2-1.0) 02/11/21 05:34 AST 9 U/L (15-37) L 02/11/21 05:34 ALT 17 U/L (12-78) 02/11/21 05:34 Alkaline Phosphatase 53 U/L (45-117) 02/11/21 05:34 Lipase 66 U/L (73-393) L 02/09/21 22:50 Home Medications: Pantoprazole [Protonix Tab*] 40 mg PO DAILY 02/10/21 Ciprofloxacin HCl [Cipro 500 MG Tablet] 500 mg PO BID #10 tab 02/13/21 metroNIDAZOLE [Flagyl] 500 mg PO Q8H #15 tablet 02/13/21 New Medications: Ciprofloxacin HCl [Cipro 500 MG Tablet] 500 mg PO BID #10 tab metroNIDAZOLE [Flagyl] 500 mg PO Q8H #15 tablet Diet: Regular Activity: Ad estelle Followup: Dwayne Lewis DO [Primary Care Provider] - 1-2 Weeks Rupert Dias MD [ACTIVE - CAN ADMIT] - 1-2 Weeks Time spent managing pt's care (in minutes): 36
== END 2021-02-13 12:16 | disposition home or self-care (01) | DRG 389 ==
LOC: ER 20:42 → ERHOLD 02-10 00:10 → 2ND 02-10 19:45
PROVIDERS: ADMIT Internal Medicine; ATTEND Internal Medicine
DX: K56.609 Unspecified intestinal obstruction, unspecified as to partial versus complete obstruction (principal); N39.0 Urinary tract infection, site not specified; I34.1 Nonrheumatic mitral (valve) prolapse; K56.7 Ileus, unspecified; K21.9 Gastro-esophageal reflux disease without esophagitis; Z90.710 Acquired absence of both cervix and uterus; Z88.8 Allergy status to other drugs, medicaments and biological substances; Z79.899 Other long term (current) drug therapy; Z20.822 Contact with and (suspected) exposure to COVID-19
CPT/HCPCS: 36415; 71045; 74018; 74019; 74176; 74250; 76705; 80048; 80053; 80076; 81001; 81003; 81015; 83690; 83735; 84100; 85025; 87086; 87088; 94760; 96365; 96367; 96375; 99285; J0696; J2270; J2405; J3010; J3475; J7030; U0003

== ENCOUNTER 2021-04-15 16:13 | Emergency (ER) | payer OTHER ==
[2021-04-15] MEDS ORDERED: ONDANSETRON 4 MG/2 ML VIAL ONE (17:44)
[2021-04-15 18:00] LABS: Albumin 4.4 g/dL (3.4-5.0); Bilirubin Direct 0.2 mg/dL (0-0.2); Bilirubin Total 0.8 mg/dL (0.2-1.0); Potassium 4.4 mmol/L (3.5-5.1); Protein, Total 7.6 g/dL (6.4-8.2)
[2021-04-15] MEDS ORDERED: NA CHLORIDE 0.9% 1,000 ML ONE (18:10)
[2021-04-15 18:32] LABS: Absolute Lymphocytes (CBC) 2.4 K/uL (0.7-4.9); Basophils % 0.5 % (0-1.3); Hematocrit 39.5 % (36.0-45.0); Lymphocytes % 38.1 % (15.3-44.8); MPV 8.9 fL (7.6-11.3); RBC Red Blood Cell Count 4.33 M/uL (3.86-4.86)
--- NOTE | 2021-04-15 20:29 | RAD REPORT ---
EXAM DESCRIPTION: CT - Abdomen Pelvis W Contrast - 04/15/2021 7:58 pm CLINICAL HISTORY: Abdominal pain. COMPARISON: January 2021 TECHNIQUE: Computed axial tomography of the abdomen and pelvis was obtained. 100 cc Isovue-300 is ad ministered intravenously. Oral contrast was given. All CT scans are performed using dose optimization technique as appropriate and may include automated exposure control or mA/KV adjustment according to patient size. FINDINGS: The liver, spleen, pancreas, adrenals and kidneys appear unremarkable. There is no evidence of diverticulitis 15 millimeter fatty structure within the terminal ileum presumably a lipoma. Small umbilical hernia contains fat. Hysterectomy. IMPRESSION: No abnormality is displayed
--- NOTE | 2021-04-15 21:18 | EDPHYS ---
Physician Documentation [facility] Name: Rand Kraus Age: 45 yrs Sex: Female : 1975 Arrival Date: 04/15/2021 Time: 16:15 Bed 2 Private MD: ED Physician Prince Rodriguez HPI: 04/15 17:35 This 45 yrs old Female presents to ER via Ambulatory with complaints of rn Abdominal Pain. 17:35 The patient presents with abdominal pain in the epigastric area. Onset: The rn symptoms/episode began/occurred this morning. The symptoms do not radiate. Associated signs and symptoms: Pertinent positives: nausea, Pertinent negatives: blood in stools, chest pain, dysuria, fever, shortness of breath, vomiting, vomiting blood. The symptoms are described as achy, crampy. Modifying factors: The symptoms are alleviated by nothing. Severity of pain: At its worst the pain was mild in the emergency department the pain is unchanged. The patient has experienced a previous episode. The patient has not recently seen a physician. Patient reports abdominal pain/nausea/constipation since this morning. Reports previous intestinal blockage in the past, states resolved with NG tube placement and fluids. Has had multiple abdominal surgeries including 3 C-sections and hysterectomy. Denies fever or vomiting. Had bowel movement this morning. 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 - Social history:: Smoking status: Patient denies any tobacco usage or history of. - Family history:: not pertinent. - Hospitalizations: : No recent hospitalization is reported. ROS: 17:35 Constitutional: Negative for fever, chills, and weight loss, Eyes: Negative for injury, rn pain, redness, and discharge, Neck: Negative for injury, pain, and swelling, Cardiovascular: Negative for chest pain, palpitations, and edema, Respiratory: Negative for shortness of breath, cough, wheezing, and pleuritic chest pain, Abdomen/GI: Positive for abdominal pain/nausea/constipation Back: Negative for injury and pain, : Negative for injury, bleeding, discharge, and swelling, MS/Extremity: Negative for injury and deformity, Skin: Negative for injury, rash, and discoloration, Neuro: Negative for headache, weakness, numbness, tingling, and seizure. 17:35 All other systems are negative. Exam: 17:35 Constitutional: This is a well developed, well nourished patient who is awake, alert, rn and in no acute distress. Head/Face: Normocephalic, atraumatic. Eyes: Periorbital areas with no swelling, redness, or edema. Cardiovascular: Regular rate and rhythm. No pulse deficits. Respiratory: No increased work of breathing, no retractions or nasal flaring. Abdomen/GI: Soft, mild tenderness epigastric region. Negative Frank Skin: Warm, dry MS/ Extremity: Pulses equal, no cyanosis. Neuro: Awake and alert, GCS 15 Vital Signs: 16:18 BP 124 / 89; Pulse 79; Resp 18; Temp 97.3; Pulse Ox 100% on R/A; Weight 63.5 kg; Height ch5 5 ft. 3 in. (160.02 cm); Pain 7/10; 17:56 BP 130 / 88; Pulse 76; Resp 18; Pulse Ox 100% ; Pain 7/10; ld1 18:41 BP 129 / 87; Pulse 72; Resp 18; Pulse Ox 100% ; ld1 21:44 Pulse 70; Resp 18; Pulse Ox 100% ; Pain 7/10; wg 22:02 BP 128 / 78; Pulse 70; Resp 18; Pulse Ox 98% ; ea 16:18 Body Mass Index 24.80 (63.50 kg, 160.02 cm) ch5 MDM: 17:14 Patient medically screened. rn 21:16 Differential diagnosis: gastroesophageal reflux disease, Irritable bowel syndrome, ma2 non-specific abd pain, pancreatitis. Data reviewed: vital signs, nurses notes. Counseling: I had a detailed discussion with the patient and/or guardian regarding: the historical points, exam findings, and any diagnostic results supporting the discharge/admit diagnosis, the presence of at least one elevated blood pressure reading (>120/80) during this emergency department visit, the need for outpatient follow up. Response to treatment: the patient's symptoms have resolved after treatment. 04/15 17:14 Order name: Basic Metabolic Panel rn 04/15 17:14 Order name: CBC with Diff rn 04/15 17:14 Order name: Hepatic Function rn 04/15 17:14 Order name: Lipase rn 04/15 17:16 Order name: Basic Metabolic Panel; Complete Time: 18:11 EDHI 04/15 17:16 Order name: CBC with Automated Diff; Complete Time: 18:42 EDHI 04/15 17:14 Order name: IV Saline Lock; Complete Time: 17:58 rn 04/15 17:14 Order name: CT Abd/Pelvis - PO and IV Contrast; Complete Time: 20:50 rn 04/15 17:16 Order name: Liver (Hepatic) Function; Complete Time: 18:11 EDHI 04/15 17:16 Order name: Lipase; Complete Time: 18:11 EDHI 04/15 17:14 Order name: Labs collected and sent; Complete Time: 17:58 rn Administered Medications: 17:40 Drug: Zofran (Ondansetron) 4 mg Route: IVP; Site: left antecubital; ld1 17:58 Follow up: Response: No adverse reaction ld1 17:40 Drug: NS 0.9% 1000 ml Route: IV; Rate: 1000 ml; Site: left antecubital; ld1 21:44 Drug: morphine 4 mg Route: IVP; Infused Over: 2 mins; Site: right antecubital; wg 21:44 Drug: Pepcid (famotidine) 20 mg Route: IVP; Infused Over: 2 mins; Site: right wg antecubital; Disposition Summary: 04/15/21 21:17 Discharge Ordered Location: Home ma2 Condition: Stable ma2 Diagnosis - Abdominal pain, unspecified ma2 Followup: ma2 - With: Rupert Dias MD - When: Tomorrow - Reason: If symptoms return Discharge Instructions: - Discharge Summary Sheet ma2 - Abdominal Pain, Adult ma2 Forms: - Medication Reconciliation Form ma2 - Thank You Letter ma2 - Antibiotic Education ma2 - Prescription Opioid Use ma2 Prescriptions: - Zofran 4 mg Oral Tablet - take 1 tablet by ORAL route every 12 hours As needed; 20 tablet; Refills: 0, ma2 Product Selection Permitted - Pepcid 20 mg Oral Tablet - take 1 tablet by ORAL route once daily; 20 tablet; Refills: 0, Product ma2 Selection Permitted Signatures: Dispatcher [employer] EDMS Prince Rodriguez MD MD rn Alzahri, Mohammad, MD MD ma2 Caroline Galeas RN RN ld1 Clint Urena RN RN ch5 Ralf Barone RN wg Corrections: (The following items were deleted from the chart) 16:23 16:23 PMHx: GERD; ch5 ch5 16:23 16:23 PMHx: mitral valve prolapse; ch5 ch5 16:23 16:23 PMHx: chronic constipation; ch5 ch5 16:23 16:23 PSHx: right ankle sx; ch5 ch5 16:23 16:23 PSHx: section; ch5 ch5 16:23 16:23 PSHx: Total abdominal hysterectomy; ch5 ch5
--- NOTE | 2021-04-15 21:18 | ER ---
Nurse's Notes [facility] Name: Rand Kraus Age: 45 yrs Sex: Female : 1975 Arrival Date: 04/15/2021 Time: 16:15 Bed 2 Private MD: Diagnosis: Abdominal pain, unspecified Presentation: 04/15 16:18 Chief complaint: Patient states: C/O Upper abdominal pain, distension, and ch5 constipation. Seen here for small bowel obstruction in February. "I feel the exact same way I did then". Coronavirus screen: Vaccine status: Patient reports being unvaccinated. Ebola Screen: Patient negative for fever greater than or equal to 101.5 degrees Fahrenheit, and additional compatible Ebola Virus Disease symptoms Patient denies exposure to infectious person. Patient denies travel to an Ebola-affected area in the 21 days before illness onset. Initial Sepsis Screen: Does the patient meet any 2 criteria? No. Patient's initial sepsis screen is negative. Does the patient have a suspected source of infection? No. Patient's initial sepsis screen is negative. Risk Assessment: Do you want to hurt yourself or someone else?. Onset of symptoms was April 15, 2021. 16:18 Method Of Arrival: Ambulatory 5 16:18 Acuity: TONY 3 ch5 Triage Assessment: 16:23 General: Appears in no apparent distress. Behavior is calm, cooperative. GI: Reports ch5 upper abdominal pain, nausea. 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 - Social history:: Smoking status: Patient denies any tobacco usage or history of. - Family history:: not pertinent. - Hospitalizations: : No recent hospitalization is reported. Screenin:25 Abuse screen: Denies threats or abuse. Denies injuries from another. Nutritional ch5 screening: No deficits noted. Tuberculosis screening: No symptoms or risk factors identified. Fall Risk None identified. Assessment: 17:56 General: Appears in no apparent distress. uncomfortable, Behavior is calm, cooperative, ld1 appropriate for age. Pain: Complains of pain in right upper quadrant and left upper quadrant Pain does not radiate. Pain currently is 7 out of 10 on a pain scale. Quality of pain is described as pressure, throbbing, Pain began 2-3 days ago. Is continuous. Neuro: Level of Consciousness is awake, alert, obeys commands, Oriented to person, place, time, situation, Appropriate for age. Cardiovascular: Capillary refill < 3 seconds Patient's skin is warm and dry. Respiratory: Airway is patent Respiratory effort is even, unlabored, Respiratory pattern is regular, symmetrical. GI: Abdomen is round non-distended, Reports upper abdominal pain, nausea. : No signs and/or symptoms were reported regarding the genitourinary system. EENT: No signs and/or symptoms were reported regarding the EENT system. Derm: No signs and/or symptoms reported regarding the dermatologic system. Musculoskeletal: No signs and/or symptoms reported regarding the musculoskeletal system. 18:41 Reassessment: Patient appears in no apparent distress at this time. No changes from ld1 previously documented assessment. Patient and/or family updated on plan of care and expected duration. Pain level reassessed. Patient is alert, oriented x 3, equal unlabored respirations, skin warm/dry/pink. 20:16 Reassessment: Patient and/or family updated on plan of care and expected duration. Pain ea level reassessed. Patient is alert, oriented x 3, equal unlabored respirations, skin warm/dry/pink. 22:01 Reassessment: Patient and/or family updated on plan of care and expected duration. Pain ea level reassessed. Patient is alert, oriented x 3, equal unlabored respirations, skin warm/dry/pink. Discharge instruction given to patient verbalized the understanding of instruction. Pt left ED ambulatory tolerating well. Vital Signs: 16:18 BP 124 / 89; Pulse 79; Resp 18; Temp 97.3; Pulse Ox 100% on R/A; Weight 63.5 kg; Height ch5 5 ft. 3 in. (160.02 cm); Pain 7/10; 17:56 BP 130 / 88; Pulse 76; Resp 18; Pulse Ox 100% ; Pain 7/10; ld1 18:41 BP 129 / 87; Pulse 72; Resp 18; Pulse Ox 100% ; ld1 21:44 Pulse 70; Resp 18; Pulse Ox 100% ; Pain 7/10; wg 22:02 BP 128 / 78; Pulse 70; Resp 18; Pulse Ox 98% ; ea 16:18 Body Mass Index 24.80 (63.50 kg, 160.02 cm) 5 ED Course: 16:15 Patient arrived in ED. rg4 16:23 Triage completed. ch5 17:10 Inserted saline lock: 22 gauge in right antecubital area, using aseptic technique. ll1 Blood collected. 17:14 Prince Rodriguez MD is Attending Physician. rn 17:56 Patient has correct armband on for positive identification. Bed in low position. Call ld1 light in reach. Side rails up X2. Pulse ox on. NIBP on. Door closed. Noise minimized. Warm blanket given. 18:20 Lipase Sent. sv 18:20 Hepatic Function Sent. sv 18:20 CBC with Diff Sent. sv 18:20 Basic Metabolic Panel Sent. sv 19:58 CT Abd/Pelvis - PO and IV Contrast In Process Unspecified. EDMS 21:17 Rupert Dias MD is Referral Physician. ma2 22:02 No provider procedures requiring assistance completed. IV discontinued, intact, ea bleeding controlled, No redness/swelling at site. Pressure dressing applied. Administered Medications: 17:40 Drug: Zofran (Ondansetron) 4 mg Route: IVP; Site: left antecubital; ld1 17:58 Follow up: Response: No adverse reaction ld1 17:40 Drug: NS 0.9% 1000 ml Route: IV; Rate: 1000 ml; Site: left antecubital; ld1 21:44 Drug: morphine 4 mg Route: IVP; Infused Over: 2 mins; Site: right antecubital; wg 21:44 Drug: Pepcid (famotidine) 20 mg Route: IVP; Infused Over: 2 mins; Site: right wg antecubital; Outcome: 21:17 Discharge ordered by . ma2 22:02 Discharged to home ambulatory, with significant other. ea 22:02 Condition: stable 22:02 Discharge instructions given to patient, Instructed on discharge instructions, follow up and referral plans. medication usage, Demonstrated understanding of instructions, follow-up care, medications, Prescriptions given X 2. 22:03 Patient left the ED. ea Signatures: Dispatcher [employer] EDMS Vero Quinonez RN RN sv Nieto, Roman, MD MD rn Garcia, Rubi rg4 Dalila Mayer RN RN ea Alzahri, Mohammad, MD MD ma2 Desmond Muhammad RN RN ll1 Caroline Galeas RN RN ld1 Clint Urena RN RN ch5 Ralf Barone RN Corrections: (The following items were deleted from the chart) 16:23 16:23 PMHx: GERD; ch5 ch5 16:23 16:23 PMHx: mitral valve prolapse; ch5 ch5 16:23 16:23 PMHx: chronic constipation; ch5 ch5 16:23 16:23 PSHx: right ankle sx; ch5 ch5 16:23 16:23 PSHx: section; ch5 ch5 16:23 16:23 PSHx: Total abdominal hysterectomy; ch5 ch5 21:56 21:18 Pulse 70bpm; Resp 18bpm; Pulse Ox 100%; Pain 01/23; wg wg
[2021-04-15] MEDS ORDERED: FAMOTIDINE 20 MG/2 ML VIAL IV ONE (22:01)
[2021-04-15] MEDS ORDERED: MORPHINE 4 MG/ML SYR ONE (22:01)
[2021-04-15 22:25] VITALS: TEMP 97.3
[2021-04-15 22:30] VITALS: BP 128/78; O2SAT 98
== END 2021-04-15 22:03 | disposition home or self-care (01) ==
LOC: ER 16:13
DX: R10.13 Epigastric pain (principal)
CPT/HCPCS: 85025; 80048; 36415; 80076; 83690; 74177; 99284; J7030; J2405

== ENCOUNTER 2021-08-29 10:09 | Emergency (ER) | payer OTHER ==
--- OUTSIDE RECORDS SUMMARY | 2021-08-29 10:13 | XMS REPORT | Continuity of Care Document ---
:1975 Author Organization [facility] t Address [address] [place] [address] Care Team Providers Name Role Phone Adela Lewis Attending Clinician Unavailable Shona Attending Clinician Unavailable WAINWRIGHT Attending Clinician Unavailable MELANIE Attending Clinician Unavailable ANITA CUELLAR Attending Clinician Unavailable Estevan CASEY, K.H. Attending Clinician Pc, Echo Room 1 - Attending Clinician Unavailable ESTEVAN KCintiaHCintia Attending Clinician Unavailable Payers Payer Name Policy Type Policy Number Effective Date Expiration Date S ource Problems Condition Condition Condition Status Onset Resolution [...] coalition ity of of right of right [place] foot foot Physici ans Peroneal Peroneal Problem Active Unive rs tendonitis tendonitis it y of of right of right [place] lower lower Physici extremity extremity ans Ankle [...] ents Source Name Type Date Date Clinician ASPIRIN DRUG Active Dizziness Univer s INGREDI 7-15 ity of 00:00: [place] 00 Medical Branch Aspirin Propensi Active Nausea Univers ty to and/or 7-15 ity of adverse Vomiting 00:00: [place] reaction 00 Medical s Branch NO KNOWN Drug Active Univers ALLERGIE Class ity of S [facility] Aspirin Adverse Active nausea, [facility] Reaction dizziness [facility] Social History Social Habit Start Date Stop Date Quantity Comments Source Sex Assigned At [facility] Medical Branch Exposure to Not sure [facility] SARS-CoV-2 (event) Medica l Branch Tobacco use and 2020-01-29 2020-01-29 Never used [facility] exposure 00:00:00 00:00:00 Medical [place] Smoking Status Start Date Stop Date Source Never smoker [facility] Medications Ordered Filled Start Stop Current Ordering Indication Dosage Frequency Signature Comments Components Source Medication Medication Date Date Medication? Clinician (SIG) Name Name Pregabalin Pregabalin Yes BRENDA TAKE 1 Univers 50 MG Oral 50 MG Oral 1-12 MELANIE CAPSULE ity of Capsule Capsule 00:00: FRONT DESK ASSOCIATE DAILY. [place] 00 Physici ans Pregabalin Pregabalin Yes BRENDA Q0.5D TAKE 1 Univers 75 MG Oral 75 MG Oral 1-05 MELANIE CAPSULE ity of Capsule Capsule 00:00: FRONT DESK ASSOCIATE TWICE [place] 00 DAILY Physici ans Cephalexin Cephalexin 2019-07 Yes NAVDEEP Q0.3333D TAKE 1 Univers 500 MG Oral 500 MG Oral 1-10 WAINWRIGHT CAPSULE 3 ity of Capsule Capsule 00:00: M.D. TIMES [place] 00 DAILY Physici UNTIL ans GONE. Promethazin Promethazin 2019-07 Yes NAVDEEP Q0.3333D TAKE 1 Univers e HCl - 25 e HCl - 25 1-10 WAINWRIGHT TABLET 3 ity of MG Oral MG Oral 00:00: M.D. TIMES [place] Tablet Tablet 00 DAILY Physici NEEDED. ans Lunesta Lunesta Yes Dwayne [address] 8-10 Lewis immediatel [facility] - 00:00: y before [facility] 00 bedtime l [facility] citalopram 2020-0 Yes 20mg Take 20 mg U nivers (CELEXA) 20 7-15 by mouth ity of mg tablet 14:24: daily. [address] linaCLOtide 2020-0 Yes Take by Un flaquita (LINZESS) 7-15 mouth ity of 72 mcg Cap 14:24: daily. [address] citalopram 2020-0 Yes 20mg Take 20 mg U nivers (CELEXA) 20 7-15 by mouth ity of mg tablet 14:24: daily. [address] linaCLOtide 2020-0 Yes Take by Un flaquita (LINZESS) 7-15 mouth ity of 72 mcg Cap 14:24: daily. [address] citalopram 2020-0 Yes 20mg Take 20 mg U nivers (CELEXA) 20 7-15 by mouth ity of mg tablet 14:24: daily. [address] linaCLOtide 2020-0 Yes Take by Un flaquita (LINZESS) 7-15 mouth ity of 72 mcg Cap 14:24: daily. [address] citalopram 2020-0 Yes 20mg Take 20 mg U nivers (CELEXA) 20 7-15 by mouth ity of mg tablet 14:24: daily. [address] linaCLOtide 2020-0 Yes Take by Un flaquita (LINZESS) 7-15 mouth ity of 72 mcg Cap 14:24: daily. [address] Citalopram Citalopram 2018-07 Yes Dwayne 1 tablet [...] A DAY [facility]oria l Outpat[facility] ent Clinics Vital Signs Vital Name Observation Time Observation Value Comments Source Systolic blood 2020-01-29 18:09:00 114 mm[Hg] Univer sity of pressure [facility] Diastolic blood 2020-01-29 18:09:00 71 mm[Hg] Unive rsity of pressure [facility] Heart rate 2020-01-29 18:09:00 69 /min Universi ty of [facility] Body height 2020-01-29 18:09:00 160 cm Universi ty of [facility] Body weight 2020-01-29 18:09:00 65.318 kg Universi ty of [facility] BMI 2020-01-29 18:09:00 25.51 kg/m2 Universi ty of [facility] Systolic blood 2020-01-29 14:22:00 103 mm[Hg] Univer sity of [facility] Diastolic blood 2020-01-29 14:22:00 73 mm[Hg] Unive rsity of [facility] Heart rate 2020-01-29 14:22:00 60 /min Universi ty of [facility] Respiratory rate 2020-01-29 14:22:00 19 /min Univ ersity of [facility] Body height 2020-01-29 14:22:00 160 cm Universi ty of [facility] Body weight 2020-01-29 14:22:00 65.318 kg Universi ty of [facility] BMI 2020-01-29 14:22:00 25.51 kg/m2 Universi ty [facility] Oxygen saturation in 2020-01-29 14:22:00 100 /min [facility] Arterial blood by [facility] Pulse oximetry Branch Systolic blood 2020-01-29 14:22:00 103 mm[Hg] Univer sity of pressure [facility] Diastolic blood 2020-01-29 14:22:00 73 mm[Hg] Unive rsity of [facility] Heart rate 2020-01-29 14:22:00 60 /min Universi ty of [place] [facility] Respiratory rate 2020-01-29 14:22:00 19 /min [facility] acute hospital Body height 2020-01-29 14:22:00 160 cm [facility] Body weight 2020-01-29 14:22:00 65.318 kg [facility] BMI 2020-01-29 14:22:00 25.51 kg/m2 [facility] Oxygen saturation in 2020-01-29 14:22:00 100 /min [facility] Arterial blood by [facility] Pulse oximetry Branch Procedures Procedure Date / Time Performed Performing Clinician Israel blanco MR Tib Fib wo 2020-08-06 00:00:00 [facility] contrast [id number] Physicians Post Op Promis 29 2020-07-28 00:00:00 [facility] Survey Physicians US Extremity lower 2020-07-28 00:00:00 [facility] venous Doppler Unilat Physicians [id number] EKG-12 LEAD 2020-01-29 14:27:12 Nhi Artis [facility] MR Ankle wo contrast 2020-01-24 00:00:00 [facility] [id number] Physicians Encounters Start End Encounter Admission Attending Care Care Encounter Source Date/Time Date/Time Type Type Clinicians Facility Department ID 2021-08-11 Outpatient Lewis, STLMLC STLC [id number] [facility] 12:24:17 Dwayne [id number] [facility] 2021-08-11 Outpatient Lewis, STLMLC STLC [id number] [facility] 12:23:59 Dwayne [id number] [facility] 2021-08-11 Outpatient Lewis, STLMLC STLMLC [id number] [facility] 11:22:35 Dwayne [id number] [facility] 2021-08-11 Outpatient Lewis, STLMLC STLMLC [id number] [facility] 11:20:58 Dwayne [id number] [facility] 2021-08-11 Outpatient Lewis, STLMLC STLMLC [id number] [facility] 11:20:35 Dwayne [id number] [facility] 2021-08-11 Outpatient Lewis, STLMLC STLC [id number] [facility] [address] 11:20:15 Dwayne [id number] [facility] 2021-08-11 Outpatient Newborn, STLMLC STLMLC [id number] [facility] [address] 11:10:36 Kitty [id number] [facility] 2021-08-11 Outpatient Newborn, STLMLC STLMLC [id number] [facility] 11:00:48 Kitty [id number] [facility] 2021-06-15 2021-06-15 ambulatory STLMLC STLMLC [id number] [facility]00 [facility] 2020-09-15 2020-09-15 CHAYITO Solomon [facility] [id number] Univers 14:15:00 14:15:00 t; NAVDEEP CUELLAR it [place] Flynn M.D. [facility] 2020-09-08 2020-09-08 Outpatient STLMLC STLMLC [id number] [facility]00 [facility] 2020-08-25 2020-08-25 Outpatient STLMLC STLMLC [id number] [facility]00 [facility] 2020-08-18 2020-08-18 CHAYITO Solomon [facility] [id number] Univers 13:00:00 13:00:00 t; NAVDEEP CUELLAR at [facility] Chely M.D. [facility] Sania Berg [facility] [address] 2020-08-07 2020-08-07 Outpatient STLMLC STLMLC [id number] [facility]00 [facility] 2020-07-28 2020-07-28 CHAYITO Solomon [facility] [id number] Univers 15:00:00 15:00:00 t; [facility]ia [facility] [place] [facility] [address] 2020-07-21 2020-07-21 CHAYITO Solomon [facility] [id number] Univers 16:00:00 16:00:00 t; NAVDEEP CUELLAR, at [facility] itdhara of [place] [facility]I [facility] [place] [facility] [address] 2020-06-26 2020-06-26 Appointmen MELANIE, [facility] [id number] Univers 10:40:00 10:40:00 t; tee GUTIERREZ of NEMO NAVARRO [place] Gerard GUTIERREZ [facility] 2020-06-26 2020-06-26 Outpatient STLMLC STLMLC [id number] [facility]00 [facility] 2020-06-19 2020-06-19 Outpatient POLO [facility] [id number] 07:47:00 23:59:00 NAVDEEP [facility] 2020-06-19 2020-06-19 Appointmen CHAYITO CUELLAR [facility] [id number] Univers 14:00:00 14:00:00 t; NAVDEEP CUELLAR, it y of [place] SETHI M.D. [facility] 2020-05-26 2020-05-26 Appointmen POLO [facility] Orthopedics [id number] Univers 14:45:00 14:45:00 t; NAVDEEP CUELLAR, Trauma it y of [place] SETHI [facility] Ot[facility] 2020-05-25 2020-05-25 Outpatient STLMLC STLMLC [id number] [facility]00 [facility] 2020-02-24 2020-02-24 [facility] [id number] [facility] [address] 10:15:00 10:15:00 t XMOS [facility] Family Medicine l Medicine Outpati ent Clinics 2020-02-11 2020-02-11 Telephone Estevan [facility] [id number] Univers 00:00:00 00:00:00 Nhi More [id number] itJayna [id number] Tony Dunbaressio [phone] Al dical nal 9 [facility] 2020-01-29 2020-01-29 Laboratory Pc, Adc Echo Room 1 - [facility] [id number] Univers 13:00:57 14:00:57 Only Nhi Artis [id number] ity of [id number] [place] Profess[place] [phone] Al dical nal [address] [place] [address] 2020-01-29 2020-01-29 Outpatient R [facility] [id number] Univers 13:00:00 13:00:00 [id number] [facility] 2020-01-29 2020-01-29 [facility] [id number] 09:08:28 10:02:42 Visit Nhi More [id number] Given [id number] Professio [phone] [address] 2020-01-29 2020-01-29 [facility] [id number] Univers 09:08:28 10:02:42 Visit Nhi More [id number] ity of [id number] [place] [phone] Al dical nal [address] [place] [address] 2020-01-29 2020-01-29 [facility] [id number] [facility] 09:00:00 09:00:00 [facility] 2020-01-24 2020-01-24 Appointmen CHAYITO CUELLAR Orthopedics [id number] [facility] 10:00:00 10:00:00 NAVDEEP Ricks, at [facility] [place] SETHI [facility] Medicine Physici Debary - [facility] [address] 2020-01-23 2020-01-23 Outpatient [facility] [place] [id number] 09:30:00 09:30:00 t [employer] [facility] 2020-01-20 2020-01-20 [facility] [id number] 09:10:00 09:10:00 t [employer] [facility] Medicine [facility] 2020-01-15 2020-01-15 [facility] [id number] 14:52:00 14:52:00 t [employer] [facility] Medicine Outpati ent Clinics 2019-12-23 2019-12-23 [facility] [id number] 16:00:00 16:00:00 t [employer] [facility] Medicine Outpati ent Clinics 2019-11-25 2019-11-25 [facility] [id number] 09:30:00 09:30:00 t [employer] [facility] Medicine Outpati ent Clinics 2019-07-31 2019-07-31 [facility] [id number] 11:40:00 11:40:00 [facility] Medicine Outpati ent Clinics 2019-07-03 2019-07-03 [facility] [id number] 11:00:00 11:00:00 [facility] Medicine Outpati ent Clinics Results Test Description Test Time Test Comments Results Result Sour e Comments [U] XRAY ANKLE 2020-01-24 Images [facility] 3 VWS RIGHT 10:14:00 acquired, not [place] [id number] reported on Physicians this accession number.
[2021-08-29] MEDS ORDERED: METOCLOPRAMIDE 10 MG/2mL INJ ONE (10:47)
[2021-08-29] MEDS ORDERED: NA CHLORIDE 0.9% 1,000 ML ONE (10:48)
[2021-08-29 10:58] LABS: Absolute Lymphocytes (CBC) 1.7 K/uL (0.7-4.9); Hematocrit 41.5 % (36.0-45.0); Lymphocytes % 35.8 % (15.3-44.8); MPV 8.4 fL (7.6-11.3); RBC Red Blood Cell Count 4.55 M/uL (3.86-4.86)
[2021-08-29 11:09] LABS: Potassium 4.1 mmol/L (3.5-5.1)
[2021-08-29 11:36] LABS: SARS-COV-2 RT PCR NEGATIVE (NEGATIVE)
--- NOTE | 2021-08-29 12:15 | RAD REPORT ---
EXAM DESCRIPTION: CT - Head Brain Wo Cont - 08/29/2021 11:57 am CLINICAL HISTORY: HEADACHE COMPARISON: Head angio dated 08/29/2021Head angio dated 08/29/2021; C Spine Wo Con dated 07/01/2019 TECHNIQUE: Axial 5 mm thick images of the head were obtained without IV contrast. All CT scans are performed using dose optimization technique as appropriate and may include automated exposure control or mA/KV adjustment according to patient size. FINDINGS: No intracranial hemorrhage, mass, edema or shift of mid-line structures. No acute infarcti on changes seen. No abnormal extra-axial fluid collections. Ventricles are normal. Mastoid air cells are clear. Paranasal sinus mucosal thickening seen without air-fluid level. No acute bony findings. IMPRESSION: Negative non-contrast CT head examination for acute or significant finding.
--- NOTE | 2021-08-29 12:16 | RAD REPORT ---
EXAM DESCRIPTION: CT - Head angio - 08/29/2021 11:57 am CLINICAL HISTORY: HEADACHE TECHNIQUE: During dynamic enhancement using nonionic IV contrast, axial 1 millimeter thick images of the head were obtained. Sagittal and axial reconstruction images were generated using MIP technique and reviewed. All CT scans are performed using dose optimization technique as appropriate and may include automated exposure control or mA/KV adjustment according to patient size. COMPARISON: CT head same date FINDINGS: No aneurysm or vascular malformation identified. Major venous sinuses are patent. No stenosis, named branch occlusion, vasculitis or other significant vascular finding identifiable. Anterior communicating artery is present. Neither posterior communicating artery is identifiable. IMPRESSION: Negative CT angio head examination.
--- NOTE | 2021-08-29 13:22 | EDPHYS ---
Physician Documentation [facility] Name: Rand Kraus Age: 46 yrs Sex: Female : 1975 Arrival Date: 08/29/2021 Time: 10:12 Bed 23 Private MD: ED Physician Elmo Quintanilla HPI: 08/29 10:25 This 46 yrs old Female presents to ER via Ambulatory with complaints of Headache, jmm Nausea. 10:25 The patient complains of pain to the forehead, right religion and left religion. Onset: The jmm symptoms/episode began/occurred gradually, 4 day(s) ago. Associated signs and symptoms: Pertinent positives: nausea. This is a 46-year-old female with history of depression the presents emerged department with complaints of frontal headache beginning approximately 4 days ago with fatigue and nausea. Patient denies similar headaches in the past. Denies fever or neck pain. Denies recent cough or congestion. Denies infectious exposure.. 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 - Social history:: Smoking status: Patient denies any tobacco usage or history of. ROS: 10:25 Constitutional: Negative for fever, chills, and weight loss, Cardiovascular: Negative jmm for chest pain, palpitations, and edema, Respiratory: Negative for shortness of breath, cough, wheezing, and pleuritic chest pain. 10:25 Neuro: Positive for headache. 10:25 All other systems are negative. Exam: 10:25 Constitutional: This is a well developed, well nourished patient who is awake, alert, jmm and in no acute distress. Head/Face: atraumatic. Eyes: EOMI, no conjunctival erythema appreciated ENT: Moist Mucus Membranes Neck: Trachea midline, Supple Chest/axilla: Normal chest wall appearance and motion. Cardiovascular: Regular rate and rhythm. No edema appreciated Respiratory: Normal respirations, no respiratory distress appreciated Abdomen/GI: Non distended, soft Back: Normal ROM Skin: General appearance color normal MS/ Extremity: Moves all extremities, no obvious deformities appreciated, no edema noted to the lower extremities Neuro: Awake and alert Psych: Behavior is normal, Mood is normal, Patient is cooperative and pleasant Vital Signs: 10:17 BP 127 / 80; Pulse 71; Resp 17; Temp 97.7; Pulse Ox 98% on R/A; Weight 63.05 kg; Height jl7 5 ft. 3 in. (160.02 cm); Pain 9/10; 11:36 Pain 7/10; lr4 12:06 BP 102 / 67; Pulse 64; Resp 14; Pulse Ox 100% on R/A; Pain 7/10; lr4 13:29 BP 106 / 70; Pulse 64; Resp 18; Temp 97.5; Pulse Ox 100% on R/A; ph 10:17 Body Mass Index 24.62 (63.05 kg, 160.02 cm) jl7 MDM: 10:25 Patient medically screened. [facility] 13:17 Data reviewed: vital signs, nurses notes. Counseling: I had a detailed discussion with tia the patient and/or guardian regarding: the historical points, exam findings, and any diagnostic results supporting the discharge/admit diagnosis, lab results, radiology results, the need for outpatient follow up, to return to the emergency department if symptoms worsen or persist or if there are any questions or concerns that arise at home. ED course: Pain is relieved in the ER. Patient advised follow-up neurology for further evaluation otherwise given strict return precautions. Patient understood and agrees plan of care.. 08/29 10:27 Order name: [place] Screen; Complete Time: 11:10 [facility] 08/29 10:27 Order name: COVID-19/FLU A+B; Complete Time: 11:38 [facility] 08/29 10:28 Order name: CBC with Diff; Complete Time: 11:10 [facility] 08/29 10:28 Order name: BMP; Complete Time: 11:10 [facility] 08/29 10:26 Order name: Saline Lock; Complete Time: 11:12 [facility] 08/29 10:28 Order name: CT Head Brain wo Cont; Complete Time: 12:16 [facility] 08/29 10:28 Order name: CT Head Angio; Complete Time: 12:17 [facility] Administered Medications: 10:45 Drug: NS 0.9% 1000 ml Route: IV; Rate: 1 bolus; Site: left antecubital; lr4 11:43 Follow up: IV Status: Completed infusion; IV Intake: 1000ml lr4 10:45 Drug: Reglan (metoCLOPramide) 20 mg Route: IVP; Site: left antecubital; lr4 13:28 Follow up: Response: No adverse reaction ph 13:28 Drug: Ketorolac 30 mg Route: IVP; Site: left antecubital; ph 13:28 Follow up: Response: No adverse reaction ph 13:28 Drug: Decadron - Dexamethasone 10 mg Route: IVP; Site: left antecubital; ph 13:28 Follow up: Response: No adverse reaction ph Disposition: 19:28 Co-signature as Attending Physician, Elmo Quintanilla MD I agree with the assessment and kdr plan of care. Disposition Summary: 08/29/21 13:21 Discharge Ordered Location: Home [facility] Condition: Stable [facility] Diagnosis - Headache [facility] Followup: jm - With: Shahbaz Mckeon MD - When: 2 - 3 days - Reason: Recheck today's complaints, Continuance of care, Re-evaluation by your physician Discharge Instructions: - Discharge Summary Sheet jm - Migraine Headache [facility] Forms: - Medication Reconciliation Form [facility] - Thank You Letter jm - Antibiotic Education [facility] - Prescription Opioid Use [facility] Signatures: Dispatcher [employer] EDMS Elmo Quintanilla MD MD kdr Mickail, Joel, PA PA [facility] Rosalva Red RN RN Paul Chase RN RN jl7 Nirmala Mackey, RN RN lr4 Corrections: (The following items were deleted from the chart) 10:42 10:27 MONO SCREEN PROFILE+I.LAB.BRZ ordered. EDMS EDMS 10:42 10:27 COVID-19/FLU A+B+MOL.LAB.BRZ ordered. EDMS EDMS
--- NOTE | 2021-08-29 13:22 | ER ---
Nurse's Notes [facility] Name: Rand Kraus Age: 46 yrs Sex: Female : 1975 Arrival Date: 08/29/2021 Time: 10:12 Bed 23 Private MD: Diagnosis: Headache Presentation: 08/29 10:17 Chief complaint: Patient states: BLANCO x 4 days with nausea and light sensitivity, reports jl7 moderate fatigue, denies hx of migraines. Coronavirus screen: fatigue, headache, nausea, Client presents with at least one sign or symptom that may indicate coronavirus-19. Standard/surgical mask placed on the client. Provider contacted for isolation considerations. Ebola Screen: No symptoms or risks identified at this time. Initial Sepsis Screen: Does the patient meet any 2 criteria? No. Patient's initial sepsis screen is negative. Does the patient have a suspected source of infection? No. Patient's initial sepsis screen is negative. Risk Assessment: Do you want to hurt yourself or someone else? Patient reports no desire to harm self or others. Onset of symptoms was August 25, 2021. 10:17 Method Of Arrival: Ambulatory 7 10:17 Acuity: TONY 3 jl7 Triage Assessment: 10:18 Headache History: The patient has had previous headaches and this one is different than jl7 previous episodes, and this one is more severe than previous episodes. General: Appears in no apparent distress. uncomfortable, Behavior is calm, cooperative, appropriate for age. Pain: Complains of pain in BLANCO Pain currently is 9 out of 10 on a pain scale. Pain began x 4 days Also complains of nausea, photophobia. 10:27 Headache History: Other Pt states onset of BLANCO was 3 days ago and that BLANCO is continuous. lr4 General: Appears in no apparent distress. well groomed, well developed, well nourished, Behavior is calm, cooperative, Reports fatigue for Denies fever, chills. Pain: Complains of pain in face Pain currently is 9 out of 10 on a pain scale. Quality of pain is described as aching, throbbing, Pain began suddenly, 2-3 days ago. Is continuous, lasting more than 1 hour. Neuro: No deficits noted. Neuro: No deficits noted. Cardiovascular: No deficits noted. Respiratory: No deficits noted. GI: Reports nausea. Musculoskeletal: No deficits noted. 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 - Social history:: Smoking status: Patient denies any tobacco usage or history of. Screenin:05 Abuse screen: Denies threats or abuse. Nutritional screening: No deficits noted. lr4 Tuberculosis screening: No symptoms or risk factors identified. Fall Risk None identified. Assessment: 13:29 Reassessment: Patient appears in no apparent distress at this time. Patient and/or ph family updated on plan of care and expected duration. Pain level reassessed. Patient is alert, oriented x 3, equal unlabored respirations, skin warm/dry/pink. 13:41 Reassessment: Patient appears in no apparent distress at this time. Patient and/or ph family updated on plan of care and expected duration. Pain level reassessed. Patient is alert, oriented x 3, equal unlabored respirations, skin warm/dry/pink. Patient states feeling better. Vital Signs: 10:17 BP 127 / 80; Pulse 71; Resp 17; Temp 97.7; Pulse Ox 98% on R/A; Weight 63.05 kg; Height jl7 5 ft. 3 in. (160.02 cm); Pain 9/10; 11:36 Pain 7/10; lr4 12:06 BP 102 / 67; Pulse 64; Resp 14; Pulse Ox 100% on R/A; Pain 7/10; lr4 13:29 BP 106 / 70; Pulse 64; Resp 18; Temp 97.5; Pulse Ox 100% on R/A; ph 10:17 Body Mass Index 24.62 (63.05 kg, 160.02 cm) jl7 ED Course: 10:12 Patient arrived in ED. mr 10:17 Jarrod Drake PA is PHCP. [facility] 10:17 Elmo Quintanilla MD is Attending Physician. [facility] 10:18 Triage completed. 7 10:18 Arm band placed on right wrist. jl7 10:40 Inserted saline lock: 20 gauge in left antecubital area, using aseptic technique. lr4 11:05 Patient has correct armband on for positive identification. Bed in low position. Call lr4 light in reach. Door closed. Lights dimmed. Warm blanket given. 11:05 No provider procedures requiring assistance completed. lr4 11:57 CT Head Brain wo Cont In Process Unspecified. EDMS 11:57 CT Head Angio In Process Unspecified. EDMS 13:21 Shahbaz Mckeon MD is Referral Physician. jmm 13:41 IV discontinued, intact, bleeding controlled, No redness/swelling at site. Pressure ph dressing applied. Administered Medications: 10:45 Drug: NS 0.9% 1000 ml Route: IV; Rate: 1 bolus; Site: left antecubital; lr4 11:43 Follow up: IV Status: Completed infusion; IV Intake: 1000ml lr4 10:45 Drug: Reglan (metoCLOPramide) 20 mg Route: IVP; Site: left antecubital; lr4 13:28 Follow up: Response: No adverse reaction ph 13:28 Drug: Ketorolac 30 mg Route: IVP; Site: left antecubital; ph 13:28 Follow up: Response: No adverse reaction ph 13:28 Drug: Decadron - Dexamethasone 10 mg Route: IVP; Site: left antecubital; ph 13:28 Follow up: Response: No adverse reaction ph Intake: 11:43 IV: 1000ml; Total: 1000ml. lr4 Outcome: 11:05 Condition: good lr4 13:21 Discharge ordered by MD. m 13:41 Discharged to home ambulatory, with significant other. ph 13:41 Discharge instructions given to patient, Instructed on discharge instructions, follow up and referral plans. Demonstrated understanding of instructions, follow-up care. 13:41 Patient left the ED. ph Signatures: Dispatcher [employer] EDMS Jarrod Drake PA PA jmm Rivera, Mary mr RedRosalva, RN RN ph Paul Murray RN RN jl7 Nirmala Mackey RN RN lr4
[2021-08-29] MEDS ORDERED: dexAMETHasone 10 MG/ML VIAL ONE (13:23)
[2021-08-29] MEDS ORDERED: KETOROLAC 30 MG/ML INJ ONE (13:23)
[2021-08-29 13:57] VITALS: O2SAT 100
[2021-08-29 13:58] VITALS: BP 106/70; TEMP 97.5
== END 2021-08-29 13:41 | disposition home or self-care (01) ==
LOC: ER 10:09
DX: R51.9 Headache, unspecified (principal); F32.A Depression, unspecified; Z20.822 Contact with and (suspected) exposure to COVID-19
CPT/HCPCS: 96361; 85025; 80048; 36415; 86308; 0240U; 70450; 70496; 96375; 96374; 99283; Q9967; J2765; J1100; J7030

== ENCOUNTER 2023-10-25 04:05 | Emergency (ER) | payer BC ==
--- OUTSIDE RECORDS SUMMARY | 2023-10-25 04:09 | XMS REPORT | Continuity of Care Document ---
Author Name Unknown Address [address] [facility] [place] [address] [facility] thconnect Address [address] [facility] [address] [place] [address] Care Team Providers Care Skip Locator Name Role Phone TRAE MORRIS Primary Care Physician UnavailDwayne Velazquez Attending Clinician Unavailable Kitty Nagel Attending Clinician Unavailable RADIOLOGY Attending Clinician Unavailable Radiology Attending Clinician Unavailable Po, [facility] Lab Main Attending Clinician Jacobo Garcia MD Attending Clinician [phone] JACOBO REDMAN Attending Clinician Ze blanco Doctor Unassigned, [place] Attending Clinician U MORGAN Muller Attending Clinician Unavailable Morgan Burger Attending Clinician [phone] Unknown, Attending Attending Clinician UnavailNAVDEEP Kohler M.D. Attending Clinician BRENDA Coto APRN Attending Clinician Terrell Barreto MD, [facility] Attending Clinician [phone] , Adc Echo Room 1 - Attending Clinician NHI Roy Attending Clinician TRAE Grace Admitting Clinician Unavailable Payers Payer Name Policy Type Policy Number Effective Date Expirati on Date Source [facility] [id number] 2021 00:00:00 [facility] [id number] [facility] [id number] [facility] [id number] [facility] [id number] [facility] [id number] [facility] Problems Condition Name Condition Details Condition Category Status Onset Date Resolution Date Last Treatment Date Treating Clinician Comments Source No known active problems No known active problems Disease [facility] [id number] Irritable bowel syndrome with constipati on Problem Active [facility] [id number] GERD without esophagiti s Problem Active [facility] [id number] Reactive depression Problem Active [facility] [id number] Hypercalce gume Problem Active [facility] [id number] Hx of thyroid nodule Problem Active [facility] [id number] Insomnia, unspecifie d type Problem Active [facility] [id number] 00 Daytime somnolence Problem Active [facility] [id number] Mitral valve prolapse Problem Active [facility] [id number] Other chronic pain Problem Active [facility] [id number] Mixed hyperlipid emia Problem Active [facility] Right ankle pain Right ankle pain Problem [facility] Post-traum atic osteoarthr itis of right ankle Post-traum atic osteoarthr itis of right ankle Problem Active [facility] 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 [facility] Peroneal tendonitis of right lower extremity Peroneal tendonitis of right lower extremity Problem Active [facility] Ankle impingemen t syndrome, right Ankle impingemen t syndrome, right Problem Active [facility] Peroneal neuritis, right Peroneal neuritis, right Problem Active [facility] Complex regional pain syndrome I Complex regional pain syndrome I Problem Active [facility] Allergies, Adverse Reactions, Alerts Allergy Name Allergy Type Status Severity Reaction(s) Onset Date Inactive Date Treating Clinician Comments Source Aspirin Propensi ty to adverse reaction s Active Nausea and/or Vomiting 01-28 00:00: 00 [facility] ASPIRIN DRUG INGREDI Active Dizziness 01-28 00:00: 00 [facility] aspirin aspirin Active nausea, dizziness [facility] NO KNOWN ALLERGIE S Drug Class Active [facility] Social History Social Habit Start Date Stop Date Quantity Comments Source Sexual orientation U [facility] Exposure to SARS-CoV-2 (event) Not sure [facility] History of Tobacco Use [facility] Sex Assigned At [facility] Tobacco use and exposure 2022-07-08 00:00:00 2022-07-08 00:00:00 Smokeless tobacco non-user [facility] History of Social function 2020-01-29 00:00:00 2020-01-29 00:00:00 [facility] Smoking Status Start Date Stop Date Source Never Smoker [facility] Medications Ordered Medication Name Filled Medication Name Start Date Stop Date Current Medication? Ordering Clinician Indication Dosage Frequency Signature (SIG) Comments Components Source diclofenac 50 mg EC tablet 2021-07 00:00: 00 Yes TAKE 1 TABLET (50 MG) BY MOUTH 2 TIMES PER DAY NEEDED [facility] DULoxetine 40 mg CpDR 2021-07 00:00: 00 Yes 1{capsu le} Take 1 capsule by mouth in the morning. [facility] methocarbam oL 750 mg tablet 2021-07 00:00: 00 Yes TAKE 2 TABLETS (1.5 GRAMS) BY MOUTH 3 TIMES PER DAY FOR 5 DAYS [facility] Pregabalin 50 MG Oral Capsule Pregabalin 50 MG Oral Capsule 07-28 00:00: 00 Yes BRENDA NAVARRO APRN TAKE 1 CAPSULE DAILY. [facility] Pregabalin 75 MG Oral Capsule Pregabalin 75 MG Oral Capsule 07-21 00:00: 00 Yes BRENDA NAVARRO APRN Q0.5D TAKE 1 CAPSULE TWICE DAILY [facility] Cephalexin 500 MG Oral Capsule Cephalexin 500 MG Oral Capsule 2019-07 00:00: 00 Yes NAVDEEP CUELLAR M.D. Q0.3333D TAKE 1 CAPSULE 3 TIMES DAILY UNTIL GONE. [facility] Promethazin e HCl - 25 MG Oral Tablet Promethazin e HCl - 25 MG Oral Tablet 2019-07 00:00: 00 Yes NAVDEEP CUELLAR M.D. Q0.3333D TAKE 1 TABLET 3 TIMES DAILY NEEDED. [facility] Lunesta Lunesta 02-23 00:00: 00 Yes Dwayne Lewis 1 tablet immediatel y before bedtime [facility] citalopram (CELEXA) 20 mg tablet 01-28 14:24: 57 Yes 20mg Take 20 mg by mouth daily. [facility] linaCLOtide (LINZESS) 72 mcg Cap 01-28 14:24: 57 Yes Take by mouth daily. [facility] linaCLOtide (LINZESS) 72 mcg Cap 01-28 09:24: 57 Yes Take by mouth daily. [facility] citalopram (CELEXA) 20 mg tablet 01-28 09:24: 57 Yes 20mg Take 20 mg by mouth daily. [facility] Citalopram Hydrobromid e Citalopram Hydrobromid e 2018-07 00:00: 00 Yes Dwayne Lewis 1 tablet [facility] Linzess Linzess Yes Dwayne Lewis 1 capsule at least 30 minutes before the first meal of the day on an empty stomach [facility] Famotidine Famotidine Yes Dwayne Lewis 1 tablet at bedtime [facility] Pantoprazol e Sodium Pantoprazol e Sodium Yes Dwayne Lewis 1 tablet [facility] Albuterol Sulfate HFA Albuterol Sulfate HFA Yes Dwayne Lewis 2 PUFF(S) EVERY 6 HOURS INHALED 30 DAY(S) [facility] Eszopiclone Eszopiclone Yes Dwayne Lewis (Schedule IV Drug) TAKE ONE (1) TABLET(S) BY MOUTH ONCE A DAY AT BEDTIME. [facility] Advair Diskus Advair Diskus Yes Dwayne Lewis INHALE 1 PUFF TWICE A DAY [facility] Lunesta 2 MG Lunesta 2 MG No 1{table t_immed iately_ before_ bedtime } QD Lunesta 2 MG Pantoprazol e Sodium 40 MG Pantoprazol e Sodium 40 MG No 1{table t} QD Pantoprazo le Sodium 40 MG Citalopram Hydrobromid e 20 MG Citalopram Hydrobromid e 20 MG No 1{table t} QD Citalopram Hydrobromi de 20 MG Advair Diskus 250-50 MCG/DOSE Advair Diskus 250-50 MCG/DOSE No Advair Diskus 250-50 MCG/DOSE Pantoprazol e Sodium 40 MG Pantoprazol e Sodium 40 MG No 1{table t} QD Pantoprazo le Sodium 40 MG Eszopiclone 2 MG Eszopiclone 2 MG No Eszopiclon e 2 MG Linzess 145 MCG Linzess 145 MCG No QD Linzess 145 MCG Albuterol Sulfate HFA 108 (90 Base) MCG/ACT Albuterol Sulfate HFA 108 (90 Base) MCG/ACT No Albuterol Sulfate HFA 108 (90 Base) MCG/ACT Famotidine 40 MG Famotidine 40 MG No 1{table t_at_be dtime} QD Famotidine 40 MG Lunesta 2 MG Lunesta 2 MG No 1{table t_immed iately_ before_ bedtime } QD Lunesta 2 MG Citalopram Hydrobromid e 20 MG Citalopram Hydrobromid e 20 MG No 1{table t} QD Citalopram Hydrobromi de 20 MG Advair Diskus 250-50 MCG/DOSE Advair Diskus 250-50 MCG/DOSE No Advair Diskus 250-50 MCG/DOSE Eszopiclone 2 MG Eszopiclone 2 MG No Eszopiclon e 2 MG Famotidine 40 MG Famotidine 40 MG No 1{table t_at_be dtime} QD Famotidine 40 MG Albuterol Sulfate HFA 108 (90 Base) MCG/ACT Albuterol Sulfate HFA 108 (90 Base) MCG/ACT No Albuterol Sulfate HFA 108 (90 Base) MCG/ACT Linzess 145 MCG Linzess 145 MCG No QD Linzess 145 MCG Vital Signs Vital Name Observation Time Observation Value Comments S ouryari Systolic blood pressure 2022-07-08 22:58:00 108 mm[Hg] [facility] Diastolic blood pressure 2022-07-08 22:58:00 70 mm[Hg] [facility] Heart rate 2022-07-08 22:58:00 61 /min [facility] Body temperature 2022-07-08 22:58:00 36.5 Rox [facility] Respiratory rate 2022-07-08 22:58:00 16 /min [facility] Body height 2022-07-08 22:58:00 160 cm [facility] Body weight 2022-07-08 22:58:00 62.007 kg [facility] BMI 2022-07-08 22:58:00 24.22 kg/m2 [facility] Oxygen saturation in Arterial blood by Pulse oximetry 2022-07-08 22:58:00 99 /min [place] [facility] height 2020-08-25 08:40:00 62 [in_i] Commo n [facility] weight 2020-08-25 08:40:00 142 [lb_av] Comm on [facility] temperature 2020-08-25 08:40:00 98 [degF] Comm on [facility] bmi 2020-08-25 08:40:00 25.97 kg/m2 Comm [facility] blood pressure systolic 2020-08-25 08:40:00 122 mm[Hg] [facility] blood pressure diastolic 2020-08-25 08:40:00 76 mm[Hg] [facility] height 2020-08-07 10:10:00 62 [in_i] Commo n [facility] weight 2020-08-07 10:10:00 146.4 [lb_av] Co mmon [facility] temperature 2020-08-07 10:10:00 97.8 [degF] Com mon [facility] bmi 2020-08-07 10:10:00 26.77 kg/m2 Comm on [facility] oximetry 2020-08-07 10:10:00 99 % Commo n [facility] respiratory rate 2020-08-07 10:10:00 17 /min [facility] blood pressure systolic 2020-08-07 10:10:00 117 mm[Hg] [facility] blood pressure diastolic 2020-08-07 10:10:00 76 mm[Hg] [facility] Systolic blood pressure 2020-01-29 18:09:00 114 mm[Hg] [facility] Diastolic blood pressure 2020-01-29 18:09:00 71 mm[Hg] [facility] Heart rate 2020-01-29 18:09:00 69 /min [facility] Body height 2020-01-29 18:09:00 160 cm [facility] Body weight 2020-01-29 18:09:00 65.318 kg [facility] BMI 2020-01-29 18:09:00 25.51 kg/m2 [facility] Systolic blood pressure 2020-01-29 14:22:00 103 mm[Hg] [facility] Diastolic blood pressure 2020-01-29 14:22:00 73 mm[Hg] [facility] Heart rate 2020-01-29 14:22:00 60 /min [facility] Respiratory rate 2020-01-29 14:22:00 19 /min [facility] Body height 2020-01-29 14:22:00 160 cm [facility] Body weight 2020-01-29 14:22:00 65.318 kg [facility] BMI 2020-01-29 14:22:00 25.51 kg/m2 [facility] Oxygen saturation in Arterial blood by Pulse oximetry 2020-01-29 14:22:00 100 /min [facility] Systolic blood pressure 2020-01-29 14:22:00 103 mm[Hg] [facility] Diastolic blood pressure 2020-01-29 14:22:00 73 mm[Hg] [facility] Heart rate 2020-01-29 14:22:00 60 /min [facility] Respiratory rate 2020-01-29 14:22:00 19 /min [facility] Body height 2020-01-29 14:22:00 160 cm [facility] Body weight 2020-01-29 14:22:00 65.318 kg [facility] BMI 2020-01-29 14:22:00 25.51 kg/m2 [facility] Oxygen saturation in Arterial blood by Pulse oximetry 2020-01-29 14:22:00 100 /min [place] [facility] Procedures Procedure Date / Time Performed Performing Clinicia n Source XR HAND 3+ VW LEFT 2023-05-22 15:59:25 Trae Morris [facility] PHYSICIAN ORDERS 2022-09-27 05:01:00 Doctor Unahermelindo signed, [place] [facility] XR HAND 3+ VW LEFT 2022-07-08 23:23:00 Morgan Garcia [facility] ASSIGNMENT OF BENEFITS 2022-07-08 22:52:30 Docto r Unassigned, [place] [facility] MR Tib Fib wo contrast [id number] 2020-08-06 00:00:00 [facility] Post Op Promis 29 Survey 2020-07-28 00:00:00 [facility] US Extremity lower venous Doppler Unilat [id number] 2020-07-28 00:00:00 [facility] EKG-12 LEAD 2020-01-29 14:27:12 Nhi Barreto [facility] MR Ankle wo contrast [id number] 2020-01-24 00:00:00 [facility] Encounters Start Date/Time End Date/Time Encounter Type Admission Type Attending Clinicians Care Facility Care Department Encounter ID Source 2021-08-11 12:24:17 [facility] [id number] [facility] 2021-08-11 12:23:59 [facility] [id number] [facility] 2021-08-11 11:22:35 Outpatient [facility] [id number] [facility] 2021-08-11 11:20:58 Outpatient [facility], [facility] [id number] [facility] 2021-08-11 11:20:35 Outpatient [facility]wayne [facility] [id number] [facility] 2021-08-11 11:20:15 Outpatient Dwayne Lewis [facility] [id number] [facility] 2021-08-11 11:10:[address] [facility] [id number] [facility] 2021-08-11 11:00:[address] [facility] [id number] [facility] 2023-08-10 00:00:00 2023-08-10 00:00:00 Outpatient R RADIOLOGY [facility] [id number] [facility] 2023-08-04 00:00:00 2023-08-04 00:00:00 Outpatient R RADIOLOGY [facility] [id number] [facility] 2023-05-22 09:42:19 2023-05-22 23:59:00 Outpatient R RADIOLOGY [facility] [id number] [facility] 2023-05-22 09:42:19 2023-05-22 23:59:00 Hospital Encounter Radiology [facility] 1..840.114 350.1.13.10 4.2.7.2.686 [id number] [facility] 2022-09-27 09:15:00 2022-09-27 09:30:00 [employer] Consultant Visit Pob, Adc Lab Main Jacobo Redman [facility] BUILDING 1..840.114 350.1.13.10 4.2.7.2.686 [id number] [facility] 2022-09-27 09:15:00 2022-09-27 09:15:00 Outpatient R JACOBO REDMAN [facility] [id number] [facility] 2022-09-27 00:00:00 2022-09-27 00:00:00 Orders Only Doctor Unassigned, [place] [facility] [id number] 350.1.13.10 4.2.7.2.686 [id number] [facility] 2022-07-08 17:02:40 2022-07-08 23:59:00 Outpatient R MORGAN GARCIA [facility] [id number] [facility] 2022-07-08 17:02:40 2022-07-08 23:59:00 Hospital Encounter Morgan Garcia [facility] MEDICAL OFFICE BUILDING [id number] 350.1.13.10 4.2.7.2.686 [id number] [facility] 2022-07-08 17:00:00 2022-07-08 18:03:25 Urgent Care Morgan Garcia Unknown, Attending [facility] MEDICAL OFFICE BUILDING [id number] 350.1.13.10 4.2.7.2.686 [id number] [facility] 2022-07-08 00:00:00 2022-07-08 00:00:00 Orders Only Doctor Unassigned, [place] [facility] [id number] 350.1.13.10 4.2.7.2.686 [id number] [facility] 2022-06-28 00:00:00 2022-06-28 00:00:00 Outpatient R RADIOLOGY [facility] [id number] [facility] 2021-06-15 00:00:00 2021-06-15 00:00:00 (TEL) STLMLC [facility] [id number] [facility] 2020-09-15 14:15:00 2020-09-15 14:15:00 Appointdirk logan; NAVDEEP CUELLAR M.D. NAVDEEP CUELLAR M.D. [facility] [id number] [facility] 2020-09-08 00:00:00 2020-09-08 00:00:00 (TEL) STLMLC STLMLC [id number] [facility] 2020-08-25 00:00:00 2020-08-25 00:00:00 OFFICE VISIT ESTAB PT LEVEL 4 STLMLC STLMLC [id number] [facility] 2020-08-18 13:00:00 2020-08-18 13:00:00 Appointmen t; NAVDEEP CUELLAR M.D. BEAVER, RICHARD, M.D. [facility] at [facility], [address] [id number] [facility] 2020-08-07 00:00:00 2020-08-07 00:00:00 OFFICE VISIT ESTAB PT LEVEL 4 STLMLC STLMLC [id number] [facility] 2020-07-28 15:00:00 2020-07-28 15:00:00 Appointmen t; NAVDEEP CUELLAR M.D. BEAVER, RICHARD, M.D. [facility]oped[facility] at [facility], [address] [id number] [facility] 2020-07-21 16:00:00 2020-07-21 16:00:00 Appointmen t; NAVDEEP CUELLAR M.D. BEAVER, RICHARD, M.D. [facility]oped[facility] at [facility], [address] [id number] [facility] 2020-06-26 10:40:00 2020-06-26 10:40:00 Appointmen t; BRENDA NAVARRO APRN PATRICK, KRISTINA, APRN [facility] UTP [id number] [facility] 2020-06-26 00:00:00 2020-06-26 00:00:00 (TEL) STLMLC STLMLC [id number] [facility] 2020-06-19 14:00:00 2020-06-19 14:00:00 Appointmen t; NAVDEEP CUELLAR M.D. BEAVER, RICHARD, M.D. [facility] [id number] [facility] 2020-05-26 14:45:00 2020-05-26 14:45:00 NAVDEEP Guzmán M.D. NAVDEEP CUELLAR M.D. [facility] Orthopedics [facility] [id number] [facility] 2020-05-25 00:00:00 2020-05-25 00:00:00 Outpatient STLMLC STL[facility]C [id number] [facility] 2020-02-24 10:15:00 2020-02-24 10:15:00 [facility] [id number] [facility] 2020-02-11 00:00:00 2020-02-11 00:00:00 Telephone Nhi Barreto [facility] [id number] 350.1.13.10 [id number] [id number] [facility] 2020-01-29 13:00:57 2020-01-29 14:00:57 Laboratory Only Pc, Adc Echo Room 1 - Nhi Barreto [facility] [id number] 350.1.13.10 4.2.7.2.686 [id number] [facility] 2020-01-29 09:08:28 2020-01-29 10:02:42 Office Visit Nhi Barreto [facility] [id number] 350.1.13.10 4.2.7.2.686 [id number] 2020-01-29 09:08:28 2020-01-29 10:02:42 Office Visit Nhi Barreto [facility] [id number] 350.1.13.10 4.2.7.2.686 [id number] [facility] 2020-01-29 09:00:00 2020-01-29 09:00:00 Outpatient R NHI BARRETO [facility] [id number] [facility] 2020-01-24 10:00:00 2020-01-24 10:00:00 Susan logan; NAVDEEP CUELLAR M.D. NAVDEEP CUELLAR M.D. [facility]oped[facility] at [facility], [address] [id number] [facility] 2020-01-23 09:30:00 2020-01-23 09:30:[address] [facility] [id number] [facility] 2020-01-20 09:10:00 2020-01-20 09:10:00 [facility] Medicine [id number] [facility] 2020-01-15 14:52:00 2020-01-15 14:52:00 [facility] Medicine [id number] [facility] 2019-12-23 16:00:00 2019-12-23 16:00:[address] [facility] [id number] [facility] 2019-11-25 09:30:00 2019-11-25 09:30:00 [facility] Medicine [id number] [facility] 2019-07-31 11:40:00 2019-07-31 11:40:00 [facility] Medicine [id number] [facility] 2019-07-03 11:00:00 2019-07-03 11:00:[address] [facility] [address] [facility] Medicine [id number] [facility] Results Test Description Test Time Test Comments Results Resul t Comments Source [U] XRAY ANKLE MIN 3 VWS RIGHT [id number] 2020-01-24 10:14:00 Images acquired, not reported on this accession number. [facility]
[2023-10-25 05:06] LABS: Absolute Eosinophils 0.2 K/uL (0-0.5); Absolute Lymphocytes (CBC) 3.4 K/uL (0.7-4.9); Absolute Monocytes 0.6 K/uL (0.1-1.3); Absolute Neutrophil 3.2 K/uL (1.8-8.0); Basophils % 0.4 % (0-1.3); Eosinophils % 2.3 % (0-4.4); Hematocrit 42.6 % (36.0-45.0); Hemoglobin 14.2 g/dL (12.0-15.0); Lymphocytes % 46.1 % (15.3-44.8); MCH 31.4 pg (27.0-35.0); MCHC 33.3 g/dL (32.0-36.0); MCV 94.4 fL (80-100); MPV 8.5 fL (7.6-11.3); Monocytes % 7.9 % (3.3-12.3); Neutrophils % 43.3 % (41.7-73.7); Platelets 275 thou/uL (152-406); RBC Red Blood Cell Count 4.51 M/uL (3.86-4.86); Red Cell Distribution Width 13.4 % (12.1-15.2)
[2023-10-25 05:07] LABS: PT Prothrombin Time 10.2 SECONDS (9.5-12.5); Protime INR 0.93
[2023-10-25 05:30] LABS: Albumin 4.1 g/dL (3.4-5.0); Albumin/Globulin Ratio 1.3 (1.1-1.8); Bilirubin Direct 0.2 mg/dL (0-0.2); Bilirubin Indirect, Calculated 0.6 mg/dL (0.2-0.8); Bilirubin Total 0.8 mg/dL (0.2-1.0); Globulin 3.1 g/dL (2.3-3.5); Protein, Total 7.2 g/dL (6.4-8.2); Troponin High Sensitivity 10.5 pg/mL (<58.9)
[2023-10-25 05:34] LABS: Thyroid Stimulating Hormone 5.62 uIU/mL (0.358-3.740)
[2023-10-25] MEDS ORDERED: PROMETHAZINE 25 MG TABLET ONE (05:40)
[2023-10-25] MEDS ORDERED: MECLIZINE HCL 12.5 MG TAB ONE (05:40)
[2023-10-25] MEDS ORDERED: NA CHLORIDE 0.9% 1,000 ML ONE (05:40)
--- NOTE | 2023-10-25 07:18 | EDPHYS ---
Physician Documentation [facility] Name: Rand Root Age: 48 yrs Sex: Female : 1975 Arrival Date: 10/25/2023 Time: 04:05 Bed 20 Private MD: ED Physician Misbah Gastelum HPI: 10/24 04:21 This 48 yrs old Female presents to ER via Unassigned with complaints of sp4 Dizziness. 05:01 Patient is a very pleasant 48-year-old female who presents with acute onset of sp4 dizziness starting 7 days ago associated with congestion, nausea, tinnitus, and some sinus discomfort.. Patient also reports a component of vertigo where dizziness becomes worse with movement. States she was dizzy enough to where she fell twice at home. Denies syncopal episodes or denied vomit.. 05:03 Patient takes duloxetine for anxiety, also pantoprazole for GERD, and weight loss sp4 injections. . 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 - Infectious Disease History:: Denies. - Social history:: Smoking status: Patient denies any tobacco usage or history of. - Family history:: not pertinent. ROS: 05:01 Constitutional: Negative for fever, chills, and weight loss, positive dizziness sp4 positive for nausea 05:01 All other systems are negative, Exam: 05:03 Constitutional: This is a well developed, well nourished patient who is awake, alert, sp4 and in no acute distress. Head/Face: Normocephalic, atraumatic. Eyes: Pupils equal round and reactive to light, extra-ocular motions intact. Lids and lashes normal. Conjunctiva and sclera are not injected. Cornea within normal limits. Periorbital areas with no swelling, redness, or edema. ENT: Nares patent. No nasal discharge, no septal abnormalities noted. Tympanic membranes are normal and external auditory canals are clear. Oropharynx with no redness, swelling, or masses, exudates, or evidence of obstruction, uvula midline. Mucous membranes moist. Neck: Trachea midline, no thyromegaly or masses palpated, and no cervical lymphadenopathy. Supple, full range of motion without nuchal rigidity, or vertebral point tenderness. Chest/axilla: Normal chest wall appearance and motion. Nontender with no deformity. No lesions are appreciated. Cardiovascular: Regular rate and rhythm with a normal S1 and S2. No gallops, murmurs, or rubs. Normal PMI, no JVD. No pulse deficits. Respiratory: Lungs have equal breath sounds bilaterally, clear to auscultation and percussion. No rales, rhonchi or wheezes noted. No increased work of breathing, no retractions or nasal flaring. Abdomen/GI: Soft, with normal bowel sounds. No distension or tympany. No guarding or rebound. No evidence of tenderness throughout. Back: No spinal tenderness. No costovertebral tenderness. Skin: Warm, dry with normal turgor. Normal color with no rashes, no lesions, and no evidence of cellulitis. MS/ Extremity: Pulses equal, no cyanosis. Neurovascular intact. Full, normal range of motion. Neuro: Awake and alert, GCS 15, oriented to person, place, time, and situation. Cranial nerves II-XII grossly intact. Motor strength 5/5 in all extremities. Sensory grossly intact. Psych: Awake, alert, with orientation to person, place and time. Behavior, mood, and affect are within normal limits 05:03 ECG was reviewed by the Attending Physician. Normal sinus rhythm at a rate of 70, normal EKG Vital Signs: 04:21 BP 137 / 84; Pulse 81; Resp 16; Temp 97.9; Pulse Ox 98% on R/A; Weight 60.33 kg; Height cm10 5 ft. 3 in. ; Pain 0/10; 06:30 BP 114 / 72; Pulse 90; Resp 16; Pulse Ox 100% on R/A; jb4 07:49 BP 119 / 74; Pulse 86; Resp 18; Pulse Ox 100% on R/A; ld1 04:21 Body Mass Index 23.56 (60.33 kg, 160.02 cm) cm10 04:21 Pain Scale: Adult cm10 NIH Stroke Scale Scores: 07:10 NIHSS Score: 0 sp4 [place] Coma Score: 07:10 Eye Response: spontaneous(4). Motor Response: obeys commands(6). Verbal Response: sp4 oriented(5). Total: 15. MDM: 04:24 Patient medically screened. sp4 06:57 ED course: CLINICAL HISTORY: dizzy COMPARISON: None. TECHNIQUE: XR CHEST 1 VIEW sp4 10/25/2023 4:22 AM CDT FINDINGS: Cardiac silhouette is normal in size. Lungs are clear without consolidation, atelectasis, mass or edema. There is no pleural effusion. There is no pneumothorax. There are no acute osseous findings. IMPRESSION: Clear lungs. Electronically signed by: Jose Pham MD 10/25/2023 06:41 AM. ED course: CLINICAL HISTORY: DIZZINESS COMPARISON: 08/29/2021. TECHNIQUE: CT HEAD WITHOUT IV CONTRAST on 10/25/2023 5:01 AM CDT This exam was performed according to our departmental dose-optimization program, which includes automated exposure control, adjustment of the mA and/or kV according to patient size and/or use of iterative reconstruction technique. FINDINGS: There is no acute hemorrhage, mass effect or midline shift. Jauregui-white differentiation is preserved. There is no hydrocephalus. There is no significant volume loss for age. The calvarium is intact. Orbits and globes are unremarkable. The paranasal sinuses are clear. Mastoid air cells are clear. IMPRESSION: No acute intracranial findings.. 23:26 Differential diagnosis: cardiac arrhythmia, hyperventilation, hypovolemia, idiopathic sp4 dizziness, near-syncope, syncope. Data reviewed: vital signs, nurses notes, lab test result(s), EKG, radiologic studies. Consideration of Admission/Observation Escalation of care including admission/observation considered. ED course: Patient has normal neurologic exam. Stable for discharge home with medications listed below. . 10/24 04:22 Order name: Basic Metabolic Panel; Complete Time: 06:58 sp4 10/24 04:22 Order name: CBC with Diff; Complete Time: 06:58 sp4 10/24 04:22 Order name: LFT's; Complete Time: 06:58 sp4 10/24 04:22 Order name: Magnesium; Complete Time: 06:58 sp4 10/24 04:22 Order name: NT PRO-BNP; Complete Time: 06:58 sp4 10/24 04:22 Order name: PT-INR; Complete Time: 06:58 sp4 10/24 04:22 Order name: Troponin HS; Complete Time: 06:58 sp4 10/24 05:10 Order name: T4 Free; Complete Time: 06:58 EDMS 10/24 05:10 Order name: Thyroid Stimulating Hormone; Complete Time: 06:58 EDMS 10/24 04:22 Order name: XRAY Chest (1 view) sp4 10/24 05:01 Order name: CT Head Brain wo Cont sp4 10/24 04:22 Order name: Cardiac monitoring; Complete Time: 04:23 sp4 10/24 04:22 Order name: EKG - Nurse/Tech; Complete Time: 04:36 sp4 10/24 04:22 Order name: IV Saline Lock; Complete Time: 04:36 sp4 10/24 04:22 Order name: Labs collected and sent; Complete Time: 04:36 sp4 10/24 04:22 Order name: O2 Per Protocol; Complete Time: 04:23 sp4 10/24 04:22 Order name: O2 Sat Monitoring; Complete Time: 04:23 4 EC:03 Rate is 70 beats/min. Rhythm is regular, Normal Sinus Rhythm. QRS [place] is Normal. [place] sp4 interval is normal. QRS interval is normal. QT interval is normal. No Q waves. T waves are Normal. No ST changes noted. Clinical impression: Normal ECG. Interpreted by me. Reviewed by me. Administered Medications: 05:51 Drug: Meclizine PO 25 mg PO once Route: PO; jb4 05:51 Drug: Promethazine PO 25 mg PO once Route: PO; jb4 05:51 Drug: NS 0.9% IV 1000 ml IV at 1 bolus Per protocol; 1000 mL bolus Route: IV; Rate: 1 jb4 bolus; Site: right antecubital; 07:42 Drug: Ketorolac IVP 30 mg IVP once Route: IVP; Site: right antecubital; ld1 07:42 Drug: metoCLOPramide IVP 10 mg IVP once; over 1 to 2 minutes Route: IVP; Site: right ld1 antecubital; Disposition Summary: 10/25/23 07:18 Discharge Ordered Problem: new sp4 Symptoms: have improved sp4 Condition: Stable sp4 Diagnosis - Dizziness and giddiness sp4 - Other peripheral vertigo, bilateral sp4 Followup: sp4 - With: Private Physician - When: 7 - 10 days - Reason: Recheck today's complaints Discharge Instructions: - Discharge Summary Sheet sp4 - Dizziness, [id number] sp4 Forms: - Patient Portal Instructions sp4 Prescriptions: - Ibuprofen 800 mg Oral Tablet - take 1 tablet ORAL route every 8 hours As needed take with food; 30 tablet; sp4 Refills: 0, Product Selection Permitted - Meclizine 25 mg Oral Tablet - take 1 tablet ORAL route every 8 hours As needed; 30 tablet; Refills: 0, sp4 Product Selection Permitted - promethazine 25 mg Oral Tablet - take 1 tablet ORAL route every 6 hours As needed; 20 tablet; Refills: 0, sp4 Product Selection Permitted NIH Stroke Scale - NIH Stroke Score Date: 10/25/2023 Time: 07:10 Total Score = 0 10. Dysarthria (speech clarity - read or repeat words) - 0(Normal) 11. Extinction and Inattention (visual/tactile/auditory/spatial/personal) - 0(No abnormality) 1a. Level of Consciousness (LOC) - 0(Alert) 1b. Level of Consciousness (LOC) (Month \T\ Age) - 0(Both) 1c. LOC Commands (Open \T\ Closes Eyes/Turpentiner) - 0(Both) 2. Best Gaze (Lateral Gaze Paresis) - 0(Normal) 3. Visual Field Loss - 0(No visual loss) 4. Facial Palsy - 0(Normal) 5a. Left Arm: Motor (10-second hold) - 0(No drift) 5b. Right Arm: Motor (10-second hold) - 0(No drift) 6a. Left Leg: Motor (5-second hold - always test supine) - 0(No drift) 6b. Right Leg: Motor (5-second hold - always test supine) - 0(No drift) 7. Limb Ataxia (finger/nose \T\ heel/owens - test with eyes open) - 0(Absent) 8. Sensory Loss (pinprick arms/legs/face) - 0(Normal) 9. Best Language: Aphasia (description/naming/reading) - 0(No aphasia) Initials: sp4 Signatures: Dispatcher [employer] Ryan Pierre RN RN jb4 Caroline Niño RN RN ld1 Misbah Gastelum MD MD sp4 Joanna Anderson RN RN cm10 Corrections: (The following items were deleted from the chart) 04:23 04:23 BASIC METABOLIC PANEL+C.LAB.BRZ ordered. EDMS EDMS 04:23 04:23 CBC+H.LAB.BRZ ordered. EDMS EDMS 04:23 04:23 HEPATIC FUNCTION+C.LAB.BRZ ordered. EDMS EDMS 04:23 04:23 MAGNESIUM+C.LAB.BRZ ordered. EDMS EDMS 04:23 04:23 PROBNP+C.LAB.BRZ ordered. EDMS EDMS 04:23 04:23 PROTIME (+INR)+COAG.LAB.BRZ ordered. EDMS EDMS 04:23 04:23 Troponin High Sensitivity+C.LAB.BRZ ordered. EDMS EDMS 04:23 04:23 Chest Single View+RAD.RAD.BRZ ordered. EDMS EDMS 05:10 05:05 THYROID STIMULAT HORMONE+C.LAB.BRZ ordered. EDMS EDMS 05:10 05:05 T4 FREE+C.LAB.BRZ ordered. EDMS EDMS
--- NOTE | 2023-10-25 07:18 | ER ---
Nurse's Notes [facility] Name: Rand Root Age: 48 yrs Sex: Female : 1975 Arrival Date: 10/25/2023 Time: 04:05 Bed 20 Private MD: Diagnosis: Dizziness and giddiness;Other peripheral vertigo, bilateral Presentation: 10/24 04:21 Chief complaint: Patient states: Dizziness onset 5-6 days ago that has been cm10 progressively getting worse. Pt reports that she feels like the room is spinning. pt denies any pain. Coronavirus screen: Client denies travel out of the [place] in the last 14 days. At this time, the client does not indicate any symptoms associated with coronavirus-19. Ebola Screen: Patient denies travel to an Ebola-affected area in the 21 days before illness onset. No symptoms or risks identified at this time. Initial Sepsis Screen: Does the patient meet any 2 criteria? No. Patient's initial sepsis screen is negative. Does the patient have a suspected source of infection? No. Patient's initial sepsis screen is negative. Risk Assessment: Do you want to hurt yourself or someone else? Patient reports no desire to harm self or others. Onset of symptoms was October 25, 2023. 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 - Infectious Disease History:: Denies. - Social history:: Smoking status: Patient denies any tobacco usage or history of. - Family history:: not pertinent. Screenin:09 [facility] ED Fall Risk Assessment (Adult) History of falling in the last 3 months, jb4 including since admission No falls in past 3 months (0 pts) Confusion or Disorientation No (0 pts) Intoxicated or Sedated No (0 pts) Impaired Gait No (0 pts) Mobility Assist Device Used No (0 pt) Altered Elimination No (0 pt) Score/Fall Risk Level 0 - 2 = Low Risk Oriented to surroundings, Maintained a safe environment. Abuse screen: Denies threats or abuse. Nutritional screening: No deficits noted. Tuberculosis screening: No symptoms or risk factors identified. Assessment: 05:00 General: Appears in no apparent distress. comfortable, Behavior is calm, cooperative, jb4 appropriate for age. Pain: Denies pain. Neuro: Level of Consciousness is awake, alert, obeys commands, Oriented to person, place, time, situation, Reports dizziness, with changing position. Cardiovascular: Patient's skin is warm and dry. Respiratory: Airway is patent Respiratory effort is even, unlabored, Respiratory pattern is regular, symmetrical. GI: No signs and/or symptoms were reported involving the gastrointestinal system. : No signs and/or symptoms were reported regarding the genitourinary system. EENT: No signs and/or symptoms were reported regarding the EENT system. Derm: Skin is intact, Skin is pink, warm \T\ dry. Musculoskeletal: Circulation, motion, and sensation intact. Range of motion: intact in all extremities. 06:09 Reassessment: Patient appears in no apparent distress at this time. Patient and/or jb4 family updated on plan of care and expected duration. Pain level reassessed. Patient is alert, oriented x 3, equal unlabored respirations, skin warm/dry/pink. 07:00 Reassessment: Patient appears in no apparent distress at this time. Patient and/or jb4 family updated on plan of care and expected duration. Pain level reassessed. Patient is alert, oriented x 3, equal unlabored respirations, skin warm/dry/pink. 07:49 Reassessment: Patient appears in no apparent distress at this time. No changes from ld1 previously documented assessment. Patient and/or family updated on plan of care and expected duration. Pain level reassessed. Patient is alert, oriented x 3, equal unlabored respirations, skin warm/dry/pink. Vital Signs: 04:21 BP 137 / 84; Pulse 81; Resp 16; Temp 97.9; Pulse Ox 98% on R/A; Weight 60.33 kg; Height cm10 5 ft. 3 in. ; Pain 0/10; 06:30 BP 114 / 72; Pulse 90; Resp 16; Pulse Ox 100% on R/A; jb4 07:49 BP 119 / 74; Pulse 86; Resp 18; Pulse Ox 100% on R/A; ld1 04:21 Body Mass Index 23.56 (60.33 kg, 160.02 cm) cm10 04:21 Pain Scale: Adult cm10 [place] Coma Score: 07:10 Eye Response: spontaneous(4). Motor Response: obeys commands(6). Verbal Response: sp4 oriented(5). Total: 15. NIH Stroke Scale Scores: 07:10 NIHSS Score: 0 sp4 ED Course: 04:07 Patient arrived in ED. jj6 04:21 Misbah Gastelum MD is Attending Physician. sp4 04:22 Triage completed. cm10 04:23 Arm band placed on Patient placed in an exam room, on a stretcher. cm10 04:24 David Ward, RN is Primary Nurse. kd4 04:24 Inserted saline lock: 20 gauge in right antecubital area, using aseptic technique. kd4 04:28 Initial lab(s) drawn, by me, sent to lab. kd4 04:46 XRAY Chest (1 view) In Process Unspecified. EDMS 05:58 CT Head Brain wo Cont In Process Unspecified. EDMS 06:09 Patient has correct armband on for positive identification. Bed in low position. Call jb4 light in reach. Side rails up X 1. Provided Education on: plan of care. 06:09 No provider procedures requiring assistance completed. jb4 07:18 Caroline Niño, RN is Primary Nurse. ld1 07:49 IV discontinued, intact, bleeding controlled, No redness/swelling at site. ld1 Administered Medications: 05:51 Drug: Meclizine PO 25 mg PO once Route: PO; jb4 05:51 Drug: Promethazine PO 25 mg PO once Route: PO; jb4 05:51 Drug: NS 0.9% IV 1000 ml IV at 1 bolus Per protocol; 1000 mL bolus Route: IV; Rate: 1 jb4 bolus; Site: right antecubital; 07:42 Drug: Ketorolac IVP 30 mg IVP once Route: IVP; Site: right antecubital; ld1 07:42 Drug: metoCLOPramide IVP 10 mg IVP once; over 1 to 2 minutes Route: IVP; Site: right ld1 antecubital; Medication: 06:09 VIS not applicable for this client. jb4 Outcome: 07:18 Discharge ordered by . sp4 07:49 Discharged to home ambulatory, ld1 07:49 Condition: stable 07:49 Discharge instructions given to patient, family, Instructed on discharge instructions, follow up and referral plans. medication usage, Demonstrated understanding of instructions, follow-up care, medications, Prescriptions given X 3, 07:50 Patient left the ED. ld1 NIH Stroke Scale - NIH Stroke Score Date: 10/25/2023 Time: 07:10 Total Score = 0 10. Dysarthria (speech clarity - read or repeat words) - 0(Normal) 11. Extinction and Inattention (visual/tactile/auditory/spatial/personal) - 0(No abnormality) 1a. Level of Consciousness (LOC) - 0(Alert) 1b. Level of Consciousness (LOC) (Month \T\ Age) - 0(Both) 1c. LOC Commands (Open \T\ Closes Eyes/Piano Regulator) - 0(Both) 2. Best Gaze (Lateral Gaze Paresis) - 0(Normal) 3. Visual Field Loss - 0(No visual loss) 4. Facial Palsy - 0(Normal) 5a. Left Arm: Motor (10-second hold) - 0(No drift) 5b. Right Arm: Motor (10-second hold) - 0(No drift) 6a. Left Leg: Motor (5-second hold - always test supine) - 0(No drift) 6b. Right Leg: Motor (5-second hold - always test supine) - 0(No drift) 7. Limb Ataxia (finger/nose \T\ heel/owens - test with eyes open) - 0(Absent) 8. Sensory Loss (pinprick arms/legs/face) - 0(Normal) 9. Best Language: Aphasia (description/naming/reading) - 0(No aphasia) Initials: sp4 Signatures: Dispatcher [employer] EDRyan Grove RN RN jb4 Caroline Niño RN RN ld1 Lina Harrison6 Misbah Gastelum MD MD sp4 Joanna Anderson RN RN cm10 David Ward RN RN kd4
[2023-10-25] MEDS ORDERED: KETOROLAC 30 MG/ML INJ ONE (07:32)
[2023-10-25] MEDS ORDERED: METOCLOPRAMIDE 10 MG/2mL INJ ONE (07:33)
[2023-10-25 09:33] VITALS: BP 119/74; TEMP 97.9; O2SAT 100
--- NOTE | 2023-10-25 12:24 | RAD REPORT ---
EXAM DESCRIPTION: CT HEAD WITHOUT IV CONTRAST CLINICAL HISTORY: DIZZINESS COMPARISON: 08/29/2021. TECHNIQUE: CT HEAD WITHOUT IV CONTRAST on 10/25/2023 5:01 AM CDT This exam was performed according to our departmental dose-optimization program, which includes autom ated exposure control, adjustment of the mA and/or kV according to patient size and/or use of iterati ve reconstruction technique. FINDINGS: There is no acute hemorrhage, mass effect or midline shift. Jauregui-white differentiation is preserved. There is no hydrocephalus. There is no significant volume loss for age. The calvarium is intact. Orbits and globes are unremarkable. The paranasal sinuses are clear. Mastoid air cells are clear. IMPRESSION: No acute intracranial findings. Electronically signed by: Jose Pham MD 10/25/2023 06:42 AM CDT Due to temporary technical issues with the PACS/Fluency reporting system, reports are being signed by the in house radiologists without review as a courtesy to insure prompt reporting. The interpreting radiologist is fully responsible for the content of the report.
--- NOTE | 2023-10-25 12:33 | EKG ---
Test Date: 2023-10-25 Test Time: 04:30:53 Business Analyst Project Manager: BUSTER MEASUREMENT RESULTS: Intervals: Rate: 70 CT: 144 QRSD: 76 QT: 404 QTc: 436 [place]: P: 77 CT: 144 QRS: 75 T: 71 INTERPRETIVE STATEMENTS: Normal sinus rhythm Normal ECG No previous ECG available for comparison Electronically Signed On 10-25-23 12:32:26 CDT by Dion Bryan
--- NOTE | 2023-10-25 14:07 | RAD REPORT ---
EXAM DESCRIPTION: XR CHEST 1 VIEW CLINICAL HISTORY: Dizzy COMPARISON: None. TECHNIQUE: XR CHEST 1 VIEW 10/25/2023 4:22 AM CDT FINDINGS: Cardiac silhouette is normal in size. Lungs are clear without consolidation, atelectasis, mass or edema. There is no pleural effusion. There is no pneumothorax. There are no acute osseous fin dings. IMPRESSION: Clear lungs. Electronically signed by: Jose Pham MD 10/25/2023 06:41 AM CDT Due to temporary technical issues with the PACS/Fluency reporting system, reports are being signed by the in house radiologists without review as a courtesy to insure prompt reporting. The interpreting radiologist is fully responsible for the content of the report.
== END 2023-10-25 07:50 | disposition home or self-care (01) ==
LOC: ER 04:05
DX: H81.393 Other peripheral vertigo, bilateral (principal)
CPT/HCPCS: 93005; 85025; 80048; 36415; 83735; 85610; 80076; 84443; 84484; 84439; 83880; 70450; 71045; Q0169; J8597; J2765; J7030